=== PATIENT | male | born 1955 | race Caucasian/White ===

== ENCOUNTER 2018-11-25 09:06 | Inpatient (IN) | payer MEDICARE ==
[~2018-11-25] VITALS: Ht 177.8 cm; Wt 118.5 kg
[~2018-11-25 09:06] MED LIST: ASPI81EC PO; Anti-Diarrheal2 MG PO; Aspirin EC81 MG PO; COLE1 PO; DIAZ10 PO; DIAZ5 PO; DIPATR PO; Hydrocodone-Ap1 EA20 PO; IBUHYD PO; LOVA40 PO; Lopressor 25 mg25 MG PO; METH5 PO; OMEP20ER PO; PROM25 PO
[2018-11-25 09:47] LABS: BASOPHILS ABSOLUTE AUTO 0.04 K/mm3 (0.00-0.23); BASOPHILS PERCENT AUTO 1 % (0-2); EOSINOPHILS ABSOLUTE AUTO 0.05 K/mm3 (0.00-0.68); EOSINOPHILS PERCENT AUTO 1 % (0-6); Hematocrit 45.2 % (37.0-53.0); Hemoglobin 14.7 g/dL (13.5-17.5); IMMATURE GRAN ABSOLUTE AUTO 0.04 K/mm3 (0.00-0.10); IMMATURE GRAN PERCENT AUTO 1 % (0-1); LYMPHOCYTES ABSOLUTE AUTO 1.55 K/mm3 (0.84-5.20); LYMPHOCYTES PERCENT AUTO 18 % (21-46); MONOCYTES ABSOLUTE AUTO 0.77 K/mm3 (0.16-1.47); MONOCYTES PERCENT AUTO 9 % (4-13); Mean Corpuscular HGB 31.2 pg (26.0-34.0); Mean Corpuscular HGB Conc 32.5 g/dL (31.5-36.5); Mean Corpuscular Volume 96 fL (80-100); Mean Platelet Volume 9.8 fL (9.1-12.4); NEUTROPHILS ABSOLUTE AUTO 6.17 K/mm3 (1.96-9.15); NEUTROPHILS PERCENT AUTO 72 % (41-73); NRBC ABSOLUTE 0.06 K/mm3 (0.00-0.02); NRBC Auto 0.7 /100 WBC (0.0-0.2); Platelet Count 376 K/mm3 (150-400); RDW Coefficient Variation 14.8 % (11.7-14.2); RDW Standard Deviation 50.7 fL (35.1-46.3); Red Blood Cell Count 4.71 M/mm3 (4.30-5.90); White Blood Cell Count 8.62 K/mm3 (4.00-11.30)
[2018-11-25 10:04] LABS: Alanine Aminotransfer (ALT/SGP 36 U/L (12-78); Albumin, Blood 3.4 g/dL (3.4-5.0); Albumin/Globulin Ratio 0.8 (0.8-1.8); Alk Phos 106 U/L (50-136); Anion Gap 7 mmol/L (6-16); Aspartate Aminotrans (AST/SGOT 25 U/L (12-37); Bilirubin, Total 0.5 mg/dL (0.1-1.0); Blood Urea Nitrogen 11 mg/dL (8-24); Bun/Creatinine Ratio 12.3 (12.0-20.0); CO2, Blood 29 mmol/L (21-32); Calcium, Blood 8.8 mg/dL (8.5-10.1); Chloride, Blood 102 mmol/L (98-108); Globulin, Blood 4.3 g/dL (2.2-4.0); Glomerular Filtration Rate >60 (60-); Glucose, Blood 113 mg/dL (70-99); Potassium, Blood 3.7 mmol/L (3.5-5.5); Sodium, Blood 138 mmol/L (136-145); Total Protein, Blood 7.7 g/dL (6.4-8.2); Troponin I 0.029 ng/mL (0.000-0.040)
[2018-11-25] MEDS ORDERED: FISH OIL + D31 EACH PO (10:10)
[2018-11-25 10:35] LABS: Influenza A Negative (NEGATIVE); Influenza B Negative (NEGATIVE)
[2018-11-25 11:16] LABS: International Normalized Ratio 1.06; Prothrombin Time Results 11.2 Sec (9.7-11.5)
[2018-11-25 12:25] LABS: Calcium, Ionized (POC) 1.07 mmol/L (1.10-1.46); Chloride (POC) 99 mmol/L (98-108); Glucose (ISTAT POC) 114 mg/dL (70-99); Hemoglobin (POC) 14.6 g/dL (13.5-17.5); Potassium (POC) 3.7 mmol/L (3.5-5.5); Sodium (POC) 140 mmol/L (135-148); Total CO2 (POC) 28 mmol/L (21-32)
[2018-11-25] MEDS ORDERED: AMIT25 PO (13:02)
[2018-11-25 13:29] LABS: Magnesium, Blood 2.3 mg/dL (1.6-2.4)
[2018-11-25 13:31] LABS: Thyroid Stimulating Hormone 1.03 uIU/mL (0.360-4.800)
[2018-11-25] MEDS ORDERED: PROM25 PO (14:57)
--- NOTE | 2018-11-25 17:49 | NUR ---
SHIFT SUMMARY 1415 PT ARRIVED FROM ER. AMBULATED FROM STRETCHER TO BED. PT NOTICEABLY DYSPNEIC, ON OXYGEN AT 4L VIA NC. PT RESTING IN BED THROUGHOUT THE AFTERNOON. VSS. ALERT AND ORIENTED X3. C/O 6/10 BACK PAIN, PT MEDICATED IN ER, STATES PAIN IS GETTING BETTER. LUNG SOUNDS CLEAR, DIMINISHED BASES. SINUS TACHYCARDIA RATE 100s ON TELE, RATES TO THE 120s-130s WITH ACTIVITY. TRACE EDEMA NOTED TO LLE. WILL CONTINUE TO MONITOR.
[2018-11-26 04:27] LABS: BASOPHILS ABSOLUTE AUTO 0.05 K/mm3 (0.00-0.23); BASOPHILS PERCENT AUTO 1 % (0-2); EOSINOPHILS ABSOLUTE AUTO 0.15 K/mm3 (0.00-0.68); EOSINOPHILS PERCENT AUTO 2 % (0-6); Hematocrit 42.5 % (37.0-53.0); Hemoglobin 13.3 g/dL (13.5-17.5); IMMATURE GRAN ABSOLUTE AUTO 0.05 K/mm3 (0.00-0.10); IMMATURE GRAN PERCENT AUTO 1 % (0-1); LYMPHOCYTES ABSOLUTE AUTO 2.26 K/mm3 (0.84-5.20); LYMPHOCYTES PERCENT AUTO 23 % (21-46); MONOCYTES ABSOLUTE AUTO 0.82 K/mm3 (0.16-1.47); MONOCYTES PERCENT AUTO 8 % (4-13); Mean Corpuscular HGB 30.7 pg (26.0-34.0); Mean Corpuscular HGB Conc 31.3 g/dL (31.5-36.5); Mean Corpuscular Volume 98 fL (80-100); NEUTROPHILS ABSOLUTE AUTO 6.48 K/mm3 (1.96-9.15); NEUTROPHILS PERCENT AUTO 66 % (41-73); NRBC ABSOLUTE 0.05 K/mm3 (0.00-0.02); NRBC Auto 0.5 /100 WBC (0.0-0.2); Platelet Count 365 K/mm3 (150-400); RDW Coefficient Variation 14.8 % (11.7-14.2); RDW Standard Deviation 51.8 fL (35.1-46.3); Red Blood Cell Count 4.33 M/mm3 (4.30-5.90); White Blood Cell Count 9.81 K/mm3 (4.00-11.30)
[2018-11-26 04:49] LABS: Alanine Aminotransfer (ALT/SGP 33 U/L (12-78); Albumin, Blood 3.1 g/dL (3.4-5.0); Albumin/Globulin Ratio 0.8 (0.8-1.8); Alk Phos 97 U/L (50-136); Anion Gap 7 mmol/L (6-16); Aspartate Aminotrans (AST/SGOT 26 U/L (12-37); Bilirubin, Total 0.5 mg/dL (0.1-1.0); Blood Urea Nitrogen 11 mg/dL (8-24); Bun/Creatinine Ratio 14.8 (12.0-20.0); CO2, Blood 29 mmol/L (21-32); Calcium, Blood 8.4 mg/dL (8.5-10.1); Chloride, Blood 103 mmol/L (98-108); Creatinine, Blood 0.74 mg/dL (0.60-1.20); Globulin, Blood 4.1 g/dL (2.2-4.0); Glomerular Filtration Rate >60 (60-); Glucose, Blood 103 mg/dL (70-99); Potassium, Blood 3.6 mmol/L (3.5-5.5); Sodium, Blood 139 mmol/L (136-145); Total Protein, Blood 7.2 g/dL (6.4-8.2)
--- NOTE | 2018-11-26 06:09 | NUR ---
SHIFT SUMMARY- PT HAS REMAINED AOX4 THROUGHOUT SHIFT AND ABLE TO ANSWER QUESTIONS APPROPRIATELY, BUT DOES APPEAR FORGETFUL AT TIMES- REQUIRES REPETITION OF EDUCATION. PT AMBULATES WITH STANDBY ASSIST TO BEDSIDE COMMODE AND HAS FREQUENT BM'S, WHICH HE STATES IS HIS BASELINE. PT CONTINUES TO BE TACHYPNEIC, BUT RESPIRATIONS ARE EVEN AND UNLABORED AT REST- CONTINUES TO HAVE DYSPNEA ON EXERTION. HEPARIN DRIP REMAINS INFUSING TO LAC AND IS TITRATED PER PHARMACY. ORAL CONTRAST CONSUMED THROUGHOUT THE NIGHT PER IMAGING ORDERS- TOLERATED WELL. PT SWALLOWED PILLS WHOLE IN APPLESAUCE WITHOUT DIFFICULTY. MEDICATED MULTIPLE TIMES THROUGHOUT THE NIGHT FOR PAIN TO LOWER BACK AND CHEST/LUNGS THAT INCREASES WITH EXERTION OR DYSPNEA- PT REPORTS DECREASE WITH ORDERED MEDICATIONS. O2 SATS HAVE REMAINED >90% ON 4L O2 VIA NASAL CANNULA. NO OTHER CHANGES FROM INITIAL ASSESSMENT. WILL CONTINUE TO MONITOR AND REPORT TO ONCOMING SHIFT RN. BED IN LOW POSITION, CALL LIGHT IN REACH.
--- NOTE | 2018-11-26 18:41 | NUR ---
SHIFT SUMMARY PT RESTING IN BED THROUGHOUT THE DAY. UP TO BEDSIDE COMMODE WITH STANDBY ASSIST. PT DYSPNEIC ON EXERTION. C/O 5/10 BACK PAIN, MEDICATED WITH PRN PAIN MEDS REQUESTED. VSS. ALERT AND ORIENTED X3 WITH SOME MOMENTS OF CONFUSION. LUNG SOUNDS EXPIRATORY WHEEZES THROUGHOUT. FAMILY AT BEDSIDE OFF AND ON THROUGHOUT THE DAY. HEPARIN GTT CONTINUED PER PHARMACY ORDERS. WILL CONTINUE TO MONITOR.
--- NOTE | 2018-11-27 06:30 | NUR ---
SHIFT SUMMARY- PT HAS REMAINED AOX4 THROUGHOUT SHIFT. VSS. PLEASANT AND COOPERATIVE WITH CARE. PT CONTINUES TO AMBULATE WITH STANDBY ASSIST TO BSC WITHOUT DIFFICULTY. O2 SATS HAVE REMAINED >90% ON 4L VIA NASAL CANNULA. PT REPORTS FEELING CONGESTED THIS AM IN SINUSES AND THROAT- REPORTS IMPROVEMENT WITH HUMIDIFIED OXYGEN. PT MEDICATED TWO TIMES FOR PAIN THROUGHOUT THE NIGHT THAT IMPROVES WITH ORDERED MEDICATIONS. HEPARIN DRIP CONTINUES TO INFUSE AND IS MANAGED PER PHARMACY. PT REPORTS IMPROVEMENT WITH SWALLOWING SINCE SPEECH THERAPY EVALUATION YESTERDAY. NO OTHER CHANGES NOTED FROM INITIAL ASSESSMENT. WILL CONTINUE TO MONITOR AND REPORT TO ONCOMING SHIFT RN. BED IN LOW POSITION, CALL LIGHT IN REACH.
[2018-11-27 08:11] LABS: COMPLEMENT C3, SERUM 196 mg/dL (82-167); COMPLEMENT C4, SERUM 36 mg/dL (14-44)
--- NOTE | 2018-11-27 17:00 | NUR ---
UPDATE PT ALERT AND ORIENTED. VS STABLE. HEPARIN GTT INFUSING PER ORDERS. FILLING HAND CALLED AND NOTIFIED THIS RN OF DVT IN RIGHT LEG. DR. LAI CALLED AND NOTIFIED. AWAITING DR. LAI TO DISCUSS THIS WITH PT. NO ACUTE CHANGES THIS SHIFT. O2 SATS >90% ON 4L NC. REPORT CALLED TO MEDICAL FLOOR RN. PT TAKEN UP BY WHEELCHAIR WITH HIS BELONGINGS.
--- NOTE | 2018-11-27 18:42 | NUR ---
SHIFT SUMMARY PATIENT TRANSFERED FROM PCU. HE IS ABLE TO MAKE HIS NEEDS KNOWN. CURRENTLY ON 4L O2, 6L WITH EXERTION.
[2018-11-27 20:06] LABS: ANTI-DSDNA ANTIBODIES 1 IU/mL (0-9); RNP ANTIBODIES <0.2 AI (0.0-0.9); SJOGREN'S ANTI-SS-A <0.2 AI (0.0-0.9); SJOGREN'S ANTI-SS-B <0.2 AI (0.0-0.9); SMITH ANTIBODIES <0.2 AI (0.0-0.9)
[2018-11-28 04:47] LABS: BASOPHILS ABSOLUTE AUTO 0.05 K/mm3 (0.00-0.23); BASOPHILS PERCENT AUTO 1 % (0-2); EOSINOPHILS ABSOLUTE AUTO 0.19 K/mm3 (0.00-0.68); EOSINOPHILS PERCENT AUTO 2 % (0-6); Hematocrit 41.7 % (37.0-53.0); Hemoglobin 13.6 g/dL (13.5-17.5); IMMATURE GRAN ABSOLUTE AUTO 0.02 K/mm3 (0.00-0.10); IMMATURE GRAN PERCENT AUTO 0 % (0-1); LYMPHOCYTES ABSOLUTE AUTO 2.87 K/mm3 (0.84-5.20); LYMPHOCYTES PERCENT AUTO 32 % (21-46); MONOCYTES ABSOLUTE AUTO 0.73 K/mm3 (0.16-1.47); MONOCYTES PERCENT AUTO 8 % (4-13); Mean Corpuscular HGB 31.8 pg (26.0-34.0); Mean Corpuscular HGB Conc 32.6 g/dL (31.5-36.5); Mean Corpuscular Volume 97 fL (80-100); Mean Platelet Volume 9.6 fL (9.1-12.4); NEUTROPHILS ABSOLUTE AUTO 4.99 K/mm3 (1.96-9.15); NEUTROPHILS PERCENT AUTO 57 % (41-73); Platelet Count 397 K/mm3 (150-400); RDW Coefficient Variation 15.5 % (11.7-14.2); Red Blood Cell Count 4.28 M/mm3 (4.30-5.90); White Blood Cell Count 8.85 K/mm3 (4.00-11.30)
[2018-11-28 05:08] LABS: Alanine Aminotransfer (ALT/SGP 32 U/L (12-78); Albumin, Blood 3.3 g/dL (3.4-5.0); Albumin/Globulin Ratio 0.8 (0.8-1.8); Alk Phos 95 U/L (50-136); Anion Gap 8 mmol/L (6-16); Aspartate Aminotrans (AST/SGOT 25 U/L (12-37); Bilirubin, Total 0.6 mg/dL (0.1-1.0); Blood Urea Nitrogen 7 mg/dL (8-24); Bun/Creatinine Ratio 8.8 (12.0-20.0); CO2, Blood 29 mmol/L (21-32); Calcium, Blood 8.8 mg/dL (8.5-10.1); Chloride, Blood 101 mmol/L (98-108); Globulin, Blood 4.2 g/dL (2.2-4.0); Glomerular Filtration Rate >60 (60-); Glucose, Blood 122 mg/dL (70-99); Potassium, Blood 3.6 mmol/L (3.5-5.5); Sodium, Blood 138 mmol/L (136-145); Total Protein, Blood 7.5 g/dL (6.4-8.2)
--- NOTE | 2018-11-28 07:37 | NUR ---
NOC SHIFT SUMMARY PT IS PLEASANT AND COOPERATIVE WITH CARE THIS NIGHT. LABS DRAWN THIS AM WITH NO CHANGE ORDERED TO HEPARIN DRIP. WAS HAVING SIGNIFICANT PAIN EARLY IN THE NIGHT. TREATED SUCCESSFULLY WITH MEDS. VSS. APPEARS IN NO ACUTE DISTRESS. REPORT TO ONCOMING RN.
[2018-11-28 08:14] LABS: PROTEIN C-FUNCTIONAL 117 % (73-180); PROTEIN S-FUNCTIONAL 78 % (63-140)
[2018-11-28] MEDS ORDERED: ENOX120I SC (12:35)
[2018-11-28] MEDS ORDERED: PANT40 PO (12:36)
--- NOTE | 2018-11-28 14:49 | NUR ---
DISCHARGE NOTE- PT DAUGHTER PRESENT FOR DISCHARGE TEACHING, PT RECIEVED VERBAL AND WRITTEN DISCHARGE INSTRUCTIONS AND ACKNOWLEDGED UNDERSTANDING OF THEM, TELE AND BOTH IV'S DC'D AT THE TIME OF DISCHARGE. PT WAS PROVIDED WITH CONTACT INFO SHOULD QUESTIONS ARRISE ABOUT THE DISCHARGE TODAY. NO FURTHER QUESTIONS AT THE TIME OF DISCHARGE.
== END 2018-11-28 13:03 | disposition home or self-care (01) | DRG 175 ==
LOC: ER 09:06 → PCU 11:44 → MEDS 11-27 17:06 → ENPENDDIS 11-28 11:00 → MEDS 11-28 13:03
PROVIDERS: Emergency Medicine; ADMIT Internal Medicine
DX: I26.09 Other pulmonary embolism with acute cor pulmonale (principal); J96.21 Acute and chronic respiratory failure with hypoxia; Z87.891 Personal history of nicotine dependence; G47.33 Obstructive sleep apnea (adult) (pediatric); K21.9 Gastro-esophageal reflux disease without esophagitis; I11.0 Hypertensive heart disease with heart failure; I50.9 Heart failure, unspecified; R13.10 Dysphagia, unspecified; Z86.718 Personal history of other venous thrombosis and embolism; J44.9 Chronic obstructive pulmonary disease, unspecified
CPT/HCPCS: 36415; 71260; 74177; 80047; 80053; 82607; 82746; 83735; 83880; 84443; 84484; 85014; 85025; 85303; 85306; 85610; 85651; 85730; 86160; 86225; 86235; 87804; 92526; 92610; 93005; 93010; 93970; 94762; 97161; 97530; 99285-25; A9270-GY; J1644; J1650; Q9967

== ENCOUNTER → 2020-01-22 | Outpatient (CLI) | payer MEDICARE, OTHER ==
[~2020-01-22] MED LIST changes: +AMIT25 PO; +ENOX120I SC; +FISH OIL + D31 EACH PO; +PANT40 PO
[2020-01-22 10:51] LABS: BASOPHILS ABSOLUTE AUTO 0.03 K/mm3 (0.00-0.23); BASOPHILS PERCENT AUTO 0 % (0-2); EOSINOPHILS ABSOLUTE AUTO 0.01 K/mm3 (0.00-0.68); EOSINOPHILS PERCENT AUTO 0 % (0-6); Hematocrit 52.9 % (37.0-53.0); Hemoglobin 17.3 g/dL (13.5-17.5); IMMATURE GRAN ABSOLUTE AUTO 0.02 K/mm3 (0.00-0.10); IMMATURE GRAN PERCENT AUTO 0 % (0-1); LYMPHOCYTES ABSOLUTE AUTO 2.01 K/mm3 (0.84-5.20); LYMPHOCYTES PERCENT AUTO 23 % (21-46); MONOCYTES ABSOLUTE AUTO 0.57 K/mm3 (0.16-1.47); MONOCYTES PERCENT AUTO 7 % (4-13); Mean Corpuscular HGB 30.5 pg (26.0-34.0); Mean Corpuscular HGB Conc 32.7 g/dL (31.5-36.5); Mean Corpuscular Volume 93 fL (80-100); Mean Platelet Volume 10.1 fL (9.1-12.4); NEUTROPHILS PERCENT AUTO 70 % (41-73); Platelet Count 376 K/mm3 (150-400); RDW Coefficient Variation 13.2 % (11.7-14.2); RDW Standard Deviation 44.6 fL (35.1-46.3); Red Blood Cell Count 5.68 M/mm3 (4.30-5.90); White Blood Cell Count 8.64 K/mm3 (4.00-11.30)
[2020-01-22 11:16] LABS: Alanine Aminotransfer (ALT/SGP 43 U/L (12-78); Albumin, Blood 4.4 g/dL (3.4-5.0); Alk Phos 100 U/L (40-126); Anion Gap 9 mmol/L (6-16); Aspartate Aminotrans (AST/SGOT 25 U/L (12-37); Bilirubin, Total 0.2 mg/dL (0.1-1.0); Blood Urea Nitrogen 19 mg/dL (8-24); Bun/Creatinine Ratio 19.6 (12.0-20.0); CO2, Blood 30 mmol/L (21-32); Calcium, Blood 8.9 mg/dL (8.5-10.1); Chloride, Blood 103 mmol/L (98-108); Creatinine, Blood 0.97 mg/dL (0.60-1.20); Globulin, Blood 4.5 g/dL (2.2-4.0); Glomerular Filtration Rate >60 (60-); Glucose, Blood 113 mg/dL (70-99); Potassium, Blood 4.5 mmol/L (3.5-5.5); Sodium, Blood 142 mmol/L (136-145); Total Protein, Blood 8.9 g/dL (6.4-8.2)
[2020-01-23 11:05] LABS: Antinuclear Antibody Screen Negative (Negative)
== END | disposition home or self-care (01) ==
LOC: LAB SHORT 10:46 → LAB EV 10:46
PROVIDERS: General Practice
DX: L03.211 Cellulitis of face (principal)
CPT/HCPCS: 80053; 85025; 85651; 86038

== ENCOUNTER 2021-04-26 16:02 | Emergency (ER) | payer MEDICARE ==
[~2021-04-26] VITALS: Ht 180.3 cm; Wt 122.0 kg
[2021-04-26 19:49] LABS: BASOPHILS ABSOLUTE AUTO 0.07 K/mm3 (0.00-0.23); BASOPHILS PERCENT AUTO 1 % (0-2); EOSINOPHILS ABSOLUTE AUTO 0.21 K/mm3 (0.00-0.68); EOSINOPHILS PERCENT AUTO 2 % (0-6); Hematocrit 51.3 % (37.0-53.0); Hemoglobin 16.7 g/dL (13.5-17.5); IMMATURE GRAN ABSOLUTE AUTO 0.02 K/mm3 (0.00-0.10); IMMATURE GRAN PERCENT AUTO 0 % (0-1); LYMPHOCYTES ABSOLUTE AUTO 2.53 K/mm3 (0.84-5.20); LYMPHOCYTES PERCENT AUTO 26 % (21-46); MONOCYTES ABSOLUTE AUTO 0.77 K/mm3 (0.16-1.47); MONOCYTES PERCENT AUTO 8 % (4-13); Mean Corpuscular HGB 30.3 pg (26.0-34.0); Mean Corpuscular HGB Conc 32.6 g/dL (31.5-36.5); Mean Corpuscular Volume 93 fL (80-100); NEUTROPHILS ABSOLUTE AUTO 6.29 K/mm3 (1.96-9.15); NEUTROPHILS PERCENT AUTO 64 % (41-73); Platelet Count 306 K/mm3 (150-400); RDW Coefficient Variation 13.7 % (11.7-14.2); RDW Standard Deviation 47.1 fL (35.1-46.3); Red Blood Cell Count 5.52 M/mm3 (4.30-5.90); White Blood Cell Count 9.89 K/mm3 (4.00-11.30)
[2021-04-26 20:20] LABS: Alanine Aminotransfer (ALT/SGP 73 U/L (12-78); Albumin, Blood 3.9 g/dL (3.4-5.0); Alk Phos 116 U/L (50-136); Anion Gap 7 mmol/L (6-16); Aspartate Aminotrans (AST/SGOT 58 U/L (12-37); Bilirubin, Total 0.6 mg/dL (0.1-1.0); Blood Urea Nitrogen 7 mg/dL (8-24); Bun/Creatinine Ratio 8.1 (12.0-20.0); CO2, Blood 28 mmol/L (21-32); Calcium, Blood 8.9 mg/dL (8.5-10.1); Chloride, Blood 102 mmol/L (98-108); Creatinine, Blood 0.87 mg/dL (0.60-1.20); Globulin, Blood 3.8 g/dL (2.2-4.0); Glomerular Filtration Rate >60 (60-); Glucose, Blood 91 mg/dL (70-99); Potassium, Blood 3.9 mmol/L (3.5-5.5); Sodium, Blood 137 mmol/L (136-145); Total Protein, Blood 7.7 g/dL (6.4-8.2)
[2021-04-26 20:42] LABS: SARS-Cov-2 (COVID-19) PCR, MMC NEGATIVE (NEGATIVE)
[2021-04-26] MEDS ORDERED: ENOX120I SC (23:20)
== END 2021-04-26 23:45 | disposition home or self-care (01) ==
LOC: ER 16:02
PROVIDERS: Physician Assistant
DX: I26.99 Other pulmonary embolism without acute cor pulmonale (principal); R09.02 Hypoxemia; K21.9 Gastro-esophageal reflux disease without esophagitis; I11.0 Hypertensive heart disease with heart failure; I50.9 Heart failure, unspecified; G47.33 Obstructive sleep apnea (adult) (pediatric); R05 Cough; J18.9 Pneumonia, unspecified organism; J44.9 Chronic obstructive pulmonary disease, unspecified; G89.29 Other chronic pain; Z20.822 Contact with and (suspected) exposure to COVID-19; Z99.81 Dependence on supplemental oxygen; Z87.891 Personal history of nicotine dependence; Z88.0 Allergy status to penicillin; Z79.01 Long term (current) use of anticoagulants; Z79.899 Other long term (current) drug therapy; Z86.718 Personal history of other venous thrombosis and embolism
CPT/HCPCS: 71046; 71260; 80053; 83880; 84484; 85025; 85379; 93005; 93010; 99283-25; J1650; Q9967; U0003; U0004

== ENCOUNTER 2021-06-12 21:20 | Inpatient (IN) | payer MEDICARE ==
[~2021-06-12] VITALS: Ht 180.3 cm; Wt 124.7 kg
[~2021-06-12 21:20] MED LIST changes: -DIAZ5 PO; -Lopressor 25 mg25 MG PO
[2021-06-12 21:52] LABS: BASOPHILS ABSOLUTE AUTO 0.01 K/mm3 (0.00-0.23); BASOPHILS PERCENT AUTO 0 % (0-2); EOSINOPHILS PERCENT AUTO 0 % (0-6); Hematocrit 51.8 % (37.0-53.0); Hemoglobin 15.8 g/dL (13.5-17.5); IMMATURE GRAN ABSOLUTE AUTO 0.03 K/mm3 (0.00-0.10); IMMATURE GRAN PERCENT AUTO 1 % (0-1); LYMPHOCYTES ABSOLUTE AUTO 0.69 K/mm3 (0.84-5.20); LYMPHOCYTES PERCENT AUTO 11 % (21-46); MONOCYTES ABSOLUTE AUTO 0.12 K/mm3 (0.16-1.47); MONOCYTES PERCENT AUTO 2 % (4-13); Mean Corpuscular HGB 30.6 pg (26.0-34.0); Mean Corpuscular HGB Conc 30.5 g/dL (31.5-36.5); Mean Corpuscular Volume 100 fL (80-100); Mean Platelet Volume 9.8 fL (9.1-12.4); NEUTROPHILS ABSOLUTE AUTO 5.56 K/mm3 (1.96-9.15); NEUTROPHILS PERCENT AUTO 87 % (41-73); NRBC ABSOLUTE 0.06 K/mm3 (0.00-0.02); NRBC Auto 0.9 /100 WBC (0.0-0.2); Platelet Count 326 K/mm3 (150-400); RDW Coefficient Variation 13.2 % (11.7-14.2); RDW Standard Deviation 48.9 fL (35.1-46.3); Red Blood Cell Count 5.17 M/mm3 (4.30-5.90); White Blood Cell Count 6.41 K/mm3 (4.00-11.30)
[2021-06-12 22:07] LABS: Alanine Aminotransfer (ALT/SGP 50 U/L (12-78); Albumin/Globulin Ratio 0.7 (0.8-1.8); Alk Phos 102 U/L (50-136); Anion Gap 11 mmol/L (6-16); Aspartate Aminotrans (AST/SGOT 34 U/L (12-37); Bilirubin, Total 0.4 mg/dL (0.1-1.0); Blood Urea Nitrogen 11 mg/dL (8-24); Bun/Creatinine Ratio 8.1 (12.0-20.0); CO2, Blood 27 mmol/L (21-32); Calcium, Blood 8.2 mg/dL (8.5-10.1); Chloride, Blood 101 mmol/L (98-108); Creatinine, Blood 1.36 mg/dL (0.60-1.20); Globulin, Blood 4.3 g/dL (2.2-4.0); Glomerular Filtration Rate 53 (60-); Glucose, Blood 188 mg/dL (70-99); Magnesium, Blood 1.6 mg/dL (1.6-2.4); Potassium, Blood 3.9 mmol/L (3.5-5.5); Sodium, Blood 139 mmol/L (136-145); Total Protein, Blood 7.3 g/dL (6.4-8.2); Troponin I <0.015 ng/mL (0.000-0.040)
[2021-06-12 22:12] LABS: PCO2 Arterial 63.7 mmHg (35-45); PO2 Arterial 48 mmHg (80-100); pH Blood Arterial 7.23 (7.35-7.45)
--- NOTE | 2021-06-13 01:40 | NUR ---
PATIENT UPDATED: ADMIT FROM ER APPROX 0015. DR. PATEL CALLED TO ROOM FOR CENTRAL LINE PLACEMENT. (PATIENT RUNNING LEVO AND VERSED THROUGH PERIPHERAL IVs AND IS AWAKE AND SHAKING - PER ER NURSE: LEVOPHED AND VERSED WAS STARTED BECAUSE PROPOFOL DECREASED NBP DOWN TO SBP OF 50S) CENTRAL LINE QUAD LUMEN RIJ PLACED. PROPOFOL, LEVO, VERSED, AND FENTANYL STARTED AND TITRATED WITH DR. PATEL IN ROOM. PATIENT THEN SENT TO CT/PE. UPON ARRIVAL BACK TO UNIT: FINAL TITRATIONS OF GTTS ARE FENTANYL AT 50MCG/HR. VERSED AT 5MG/HR. LEVO AT 15MCG/MIN. PROPOFOL AT 45MCG/KG/MIN.
[2021-06-13 03:16] LABS: BASOPHILS ABSOLUTE AUTO 0.02 K/mm3 (0.00-0.23); BASOPHILS PERCENT AUTO 0 % (0-2); EOSINOPHILS ABSOLUTE AUTO 0.01 K/mm3 (0.00-0.68); EOSINOPHILS PERCENT AUTO 0 % (0-6); Hematocrit 44.3 % (37.0-53.0); Hemoglobin 14.2 g/dL (13.5-17.5); IMMATURE GRAN ABSOLUTE AUTO 0.04 K/mm3 (0.00-0.10); IMMATURE GRAN PERCENT AUTO 0 % (0-1); LYMPHOCYTES ABSOLUTE AUTO 0.83 K/mm3 (0.84-5.20); LYMPHOCYTES PERCENT AUTO 7 % (21-46); MONOCYTES ABSOLUTE AUTO 0.85 K/mm3 (0.16-1.47); MONOCYTES PERCENT AUTO 7 % (4-13); Mean Corpuscular HGB 30.9 pg (26.0-34.0); Mean Corpuscular HGB Conc 32.1 g/dL (31.5-36.5); Mean Corpuscular Volume 96 fL (80-100); Mean Platelet Volume 9.8 fL (9.1-12.4); NEUTROPHILS ABSOLUTE AUTO 9.88 K/mm3 (1.96-9.15); NEUTROPHILS PERCENT AUTO 85 % (41-73); NRBC ABSOLUTE 0.05 K/mm3 (0.00-0.02); NRBC Auto 0.4 /100 WBC (0.0-0.2); Platelet Count 284 K/mm3 (150-400); RDW Coefficient Variation 13.6 % (11.7-14.2); RDW Standard Deviation 48.3 fL (35.1-46.3); White Blood Cell Count 11.63 K/mm3 (4.00-11.30)
[2021-06-13 03:32] LABS: International Normalized Ratio 1.05
[2021-06-13 03:35] LABS: Albumin, Blood 2.6 g/dL (3.4-5.0); Albumin/Globulin Ratio 0.7 (0.8-1.8); Bilirubin, Total 0.4 mg/dL (0.1-1.0); Bun/Creatinine Ratio 9.1 (12.0-20.0); Calcium, Blood 7.6 mg/dL (8.5-10.1); Creatinine, Blood 1.43 mg/dL (0.60-1.20); Globulin, Blood 3.6 g/dL (2.2-4.0); Potassium, Blood 3.7 mmol/L (3.5-5.5); Total Protein, Blood 6.2 g/dL (6.4-8.2)
[2021-06-13 04:36] LABS: SARS-Cov-2 (COVID-19) PCR, MMC NEGATIVE (NEGATIVE)
--- NOTE | 2021-06-13 05:24 | NUR ---
PATIENT UPDATE NOTE: HEPARIN GTT STARTED AT 15UNITS/KG/HR PER ORDER. KVO X2 STARTED FOR ANTIBIOTICS. LABS DRAWN AND RETURN RESULTS. LACTIC ACID CAME BACK CRITICAL BUT LOWER THAN ER RESULT. NO MAJOR ISSUES WITH KIDNEY OR LIVER FUCTION RESULTS. 500ML BOLUS COMPLETED (PER ORDER FROM DR. PATEL - NOT TO FINISH THE 3.5L BOLUS BUT TO CHANGE TO 1.5L)
--- NOTE | 2021-06-13 05:34 | NUR ---
DR. GUERRERO NOTIFIED OF... ACOSTA CONTINUES TO HAVE NO URINE OUTPUT. BLADDER SCAN PRIOR TO INSERTION > 800MLS. ACOSTA INSERTED WITH NO URINE RETURN. 18F. 2 HOUR S/P ACOSTA INERSTION, BLADDER SCAN READS 200MLS, BUT NO URINE IN COLLECTION DEVICE, ON SHEETS, OR ON PATIENT. MULTIPLE RNs ATTEMPTED TO PLACE THIS ACOSTA INCLUDING ER AND ICU RNs AND MULTIPLE SIZES ATTEMPTED. PER DR. GUERRERO - CONTINUE TO MONITOR.
--- NOTE | 2021-06-13 07:14 | NUR ---
UNSPIKED VERSED BAG PASSED OFF TO DAYSHIFT ANGEL HERNANDEZ RN
--- NOTE | 2021-06-13 07:41 | NUR ---
ASSUMED CARE: PT INTUBATED AND SEDATED. SETTINGS AC 16/500/12/100%, SATTINGS 89%. PROPOFOL GTT AT 45MCG, LEVOPHED TITRATED DOWN TO 9MCG, VERSED GTT AT 5MG/HR, HEPARIN GTT VERIFIED WITH ORDERS. OG TO LIS WITH GREEN OUTPUT NOTED. ACOSTA CATH IN PLACE BUT NO OUTPUT NOTED AT THIS TIME. CL TO RIGHT NECK WITH MEDS INFUSING. NO ACUTE NEEDS AT THIS TIME.
--- NOTE | 2021-06-13 08:34 | NUR ---
SEDATION VACATION PERFORMED. VERSED AND PROPOFOL PUT TO SB. PT SUCTIONED WITH BLOODY SECRETIONS NOTED. PT'S PUPILS REACTIVE BUT SLUGGISH. OTHERWISE PT NOT RESPONSIVE TO NOXIOUS STIMULI. REPOSITIONED AND ORAL CARE WITH NO REACTION NOTED. MEDS RESTARTED. LENDING CONSULTANT AWARE. WILL RELAY TO AUTOMOTIVE SOFTWARE ENGINEER
[2021-06-13] MEDS ORDERED: FLOVENT HFA12 GM INH (10:27)
[2021-06-13] MEDS ORDERED: OXYB5 PO (10:27)
[2021-06-13] MEDS ORDERED: Lopressor 25 mg25 MG PO (10:28)
[2021-06-13] MEDS ORDERED: ELIQUIS5 M3 PO (10:28)
[2021-06-13] MEDS ORDERED: DIAZ5 PO (10:28)
--- NOTE | 2021-06-13 10:45 | NUR ---
ADMIT: 06/12/21 DISCHARGE: TBD DX: ACUTE ON CHRONIC RESP. FAILURE CC: Marcia SALAZAR RESIDENCE: HOME - [address] [place] [address] [place]. [id number] NEXT OF KIN/CONTACTS: PALMER BOND, DAUGHTER [phone] PREET BOND, SON IN-LAW PRIOR TO ADMIT - DME: OXYGEN EQUIPMENT CCM: NONE HHC/HOSPICE: NONE CODE STATUS - FULL CODE
--- NOTE | 2021-06-13 18:31 | NUR ---
SHIFT SUMMARY: PT REMAINS INTUBATED WITH SETTINGS AC 16/500/12/100%. DR INSTRUCTED STAFF TO KEEP PT ON LEFT SIDE DUE TO WORSENED PNEUMONIA ON RIGHT SIDE. STAFF HAS BEEN ALTERNATING BETWEEN 2 PILLOWS AND 1 PILLOW UNDER SIDE TO KEEP PT ELEVATED AND TO PROVIDE PRESSURE POINT CHANGES. LEVOPHED OFF, PROPOFOL AT 45MCG, FENTANYL GTT AND VERSED GTT RUNNING. NS AT 100/HR. DR YANG FEELS PT IS "DRY" DUE TO INFECTION AND INSTRUCTED FOR FURTHER FLUIDS WHEN HE WAS NOTIFIED THAT PT HAD NOT VOIDED ALL SHIFT. BLADDER SCAN SHOWED 50CC IN BLADDER. PT'S DAUGHTER WAS AT BEDSIDE DURING VISITING HOURS. NO ACUTE NEEDS AT THIS TIME.
--- NOTE | 2021-06-13 19:30 | NUR ---
ASSUMPTION OF CARE PT REMAINS INTUBATED WITH VENT SETTINGS 16/400/12/100% WITH SPO2 >92%. PT SEDATED WITH PROPOFOL 45MCG/KG/MIN, VERSED 5MG/HR, RECEIVING FENTANYL 50MCG/HR AND NS 100MLS/HR. LEVOPHED REMAINS ON STANDBY. SMALL AMOUNT OF BLOODY SECRETIONS IN ETT. OGT CONNECTED TO LOW INT SUCTION WITH GREEN DRAINAGE. SEE NOTES REGARDING ACOSTA. SEE SHIFT ASSESSMENT.
--- NOTE | 2021-06-13 20:39 | NUR ---
ACOSTA ACOSTA CATH WITH NO DRAINAGE. BLADDER SCAN DONE THREE TIMES WITH RESULTS 850-1000 ML. FLUSHED CATH WITH 50 ML STERIL WATER, FLUSED WITHOUT DIFFICULTY. NO RETURN OF FLUID. DECREASED BALLOON OF ACOSTA CATH, SCANT AMT BLOODY FLUID NOTED IN TUBING. UNABLE TO ADVANCE ACOSTA. REMOVED ACOSTA CATH AND TRIED TO PLACE 16 FR COUDE CATH. CAN FEEL CATH GOING OFF TO RIGHT SIDE OF BLADDER. REMOVED ACOSTA. DR JAMISON AT BEDSIDE, INSTRUCTED TO NOTIFY DR YANG. CALL TO DR YANG. OBTAINED ORDER FOR ABD/PELVIC CT WITHOUT CONTRAST AND TO CALL DR BRUNER.
--- NOTE | 2021-06-13 20:48 | NUR ---
DR BRUNER CONTACTED DR BRUNER REGARDING BLADDER OBST. DOCTOR WITH SEE PT IN AM. AGREED TO CT ABD/PELVIC. RT AT BEDSIDE FOR TRANSPORT TO CT.
--- NOTE | 2021-06-13 21:27 | NUR ---
CT PT TAKEN TO CT WITH VENT AND RT. CT ABD/PELVIC DONE. CALLED DR YANG WITH RESULTS. ORDER RECEIVED TO DECREASE IV FLUID, HOLD LOVENOX FOR TONIGHT FOR POSSIBLE SUPRAPUBIC CATH PLACEMENT IN AM, LEAVE ACOSTA CATH OUT AND TRY TO DECREASED VERSED DURING THE NIGHT.
[2021-06-14 04:36] LABS: BASOPHILS ABSOLUTE AUTO 0.01 K/mm3 (0.00-0.23); BASOPHILS PERCENT AUTO 0 % (0-2); EOSINOPHILS PERCENT AUTO 0 % (0-6); Hematocrit 37.4 % (37.0-53.0); Hemoglobin 12.3 g/dL (13.5-17.5); IMMATURE GRAN ABSOLUTE AUTO 0.06 K/mm3 (0.00-0.10); IMMATURE GRAN PERCENT AUTO 1 % (0-1); LYMPHOCYTES ABSOLUTE AUTO 1.05 K/mm3 (0.84-5.20); LYMPHOCYTES PERCENT AUTO 8 % (21-46); MONOCYTES ABSOLUTE AUTO 0.99 K/mm3 (0.16-1.47); MONOCYTES PERCENT AUTO 8 % (4-13); Mean Corpuscular HGB Conc 32.9 g/dL (31.5-36.5); Mean Corpuscular Volume 94 fL (80-100); Mean Platelet Volume 10.4 fL (9.1-12.4); NEUTROPHILS ABSOLUTE AUTO 10.77 K/mm3 (1.96-9.15); NEUTROPHILS PERCENT AUTO 84 % (41-73); NRBC ABSOLUTE 0.02 K/mm3 (0.00-0.02); NRBC Auto 0.2 /100 WBC (0.0-0.2); Platelet Count 242 K/mm3 (150-400); RDW Coefficient Variation 13.9 % (11.7-14.2); RDW Standard Deviation 48.3 fL (35.1-46.3); Red Blood Cell Count 3.97 M/mm3 (4.30-5.90); White Blood Cell Count 12.88 K/mm3 (4.00-11.30)
[2021-06-14 04:54] LABS: Albumin, Blood 2.8 g/dL (3.4-5.0); Anion Gap 4 mmol/L (6-16); Blood Urea Nitrogen 21 mg/dL (8-24); CO2, Blood 28 mmol/L (21-32); Calcium, Blood 7.7 mg/dL (8.5-10.1); Chloride, Blood 103 mmol/L (98-108); Creatinine, Blood 1.05 mg/dL (0.60-1.20); Glomerular Filtration Rate >60 (60-); Glucose, Blood 141 mg/dL (70-99); Phosphorus, Blood 2.1 mg/dL (2.5-4.9); Potassium, Blood 4.5 mmol/L (3.5-5.5); Sodium, Blood 135 mmol/L (136-145)
--- NOTE | 2021-06-14 05:46 | NUR ---
SHIFT SUMMARY PT REMAINS INTUBATED WITH VENT SETTINGS 16/400/12/65% WITH SPO2 >93%. PT RECEIVING PROPOFOL 45MCG/KG/MIN, FENTANYL 50MCG/HR, AND NS 40ML/HR. PT REMAINED ON L SIDE PER DR'S REQUEST. MINIMAL WHITE/RED SECRETIONS FROM ETT. OGT REMAINS CONNECTED TO LOW INT SUCTION WITH BROWN DRAINAGE. BOWEL TONES REMAIN HYPOACTIVE. CONDOM CATH IN PLACE. PT HAD 175ML URINE OUTPUT THIS SHIFT. PLAN FOR SUPRAPUBIC CATH LATER TODAY. WILL REPORT TO ONCOMING RN.
--- NOTE | 2021-06-14 07:22 | NUR ---
ASSUMED CARE: PT INTUBATED AND SEDATED. AC 16/500/12/65%. PROPOFOL AT 45MCG/KG AND FENTANYL AT 50MCG/HR AT THIS TIME. OG DRAINING BROWN OUTPUT. CONDOM CATH WITH SOME YELLOW URINE DRAINING. PLAN IS FOR DR BRUNER TO CONSULT REGARDING PERMACATH PLACEMENT. NIGHT RN CONTACTED PT'S DAUGHTER REGARDING THIS. NO ACUTE NEEDS AT THIS TIME.
[2021-06-14 08:27] LABS: Base Excess Venous 3.6 mmol/L; Bicarbonate Venous 26.8 mmol/L (24.0-30.0); PCO2 Venous 47.3 mmHg (38-42); pH Blood Venous 7.39 (7.34-7.37)
[2021-06-14 09:13] LABS: Vancomycin, Trough 35.7 ug/mL (5.0-10.0)
--- NOTE | 2021-06-14 10:11 | NUR ---
PT COLLECTED BY FISH TECHNOLOGIST STAFF FOR PROCEDURE. ESCORTED VIA BED WITH RT ASSISTING
--- NOTE | 2021-06-14 11:43 | NUR ---
PT RETURNED FROM PRINTING SERVICES COORDINATOR WITH SUPRAPUBIC CATH IN PLACE. YELLOW URINE, NO SIGN OF BLEEDING. VSS AT THIS TIME. PT'S DAUGHTER WAS CALLED AND GIVEN AN UPDATE.
--- NOTE | 2021-06-14 13:19 | NUR ---
Contacted patient/s daughter Layla this afternoon to provide updates and answer questions. Disposition unknown at this time. Discussed patient's living conditions and level support. Pt. [place] land with his daughter. They do live in seperate houses, but are often together. Strong family support system. I provided my contact information to Layla for her to reach me with requests for updates or questions regarding care coordination. Layla stated that the best number to reach her at is [phone].
--- NOTE | 2021-06-14 14:15 | NUR ---
PT'S DAUGHTER ARRIVED TO SEE PT. DR CREWS ENTERED ROOM AND GAVE UPDATE REGARDING STATUS. DISCUSSED WITH DR CREWS THE RESULT OF THE SEDATION VACATION YESTERDAY AND TODAY, WITH PT NOT REPONDING TO NOXIOUS STIMULI. FEELS DUE TO HEAVY SEDATIVE AND PT JUST NEEDS EXTRA TIME. PLANNING ON BEGINNING WEANS IN A FEW DAYS. STATED TO DAUGHTER THAT HEPATOMEGALY ON CT WAS LIKELY FATTY LIVER. DAUGHTER DENIED FURTHER QUESTIONS
--- NOTE | 2021-06-14 17:32 | NUR ---
SHIFT SUMMARY: PT REMAINS INTUBATED AND SEDATED ON AC 16/400/12/65%. SEDATED WITH PROPOFOL AND FENTANYL. HAS BEEN OFF PRESSORS BUT BP SOFT WITH APPROPRIATE MAPS. SP CATH PLACED TO RIGHT LOWER ABDOMEN AND HAS BEEN VOIDING WELL WITH THIS. PT ABLE TO TOLERATE REPOSITIONING TO BACK AND RIGHT SIDE NOW. DAUGHTER AT BEDSIDE. NO ACUTE NEEDS OR CONCERNS AT THIS TIME.
[2021-06-14 17:50] LABS: Vancomycin, Trough 18.3 ug/mL (5.0-10.0)
--- NOTE | 2021-06-14 21:41 | NUR ---
ASSUMPTION OF CARE PT REMAINS INTUBATED, VENT SETTINGS AC /60% WITH SPO2 >93%. PT RECEIVING PROPOFOL 40MCG/KG/MIN AND FENTANYL 50MCG/HR. OGT CONNECTED TO LOW INT SUCTION WITH BROWN DRAINAGE. SUPRAPUBIC CATHETER PLACED EARLIER TODAY. SITE WNL, DRAINING CLEAR/YELLOW URINE. BOWEL TONES ACTIVE. MILD EDEMA IN EXTREMITIES. SEE SHIFT ASSESSMENT. TALKED WITH PALMER (DAUGHTER) ON TELEPHONE FOR UPDATE. PALMER REPORTS PT HAS HISTORY OF CHRONIC L SHOULDER PAIN THAT HE RECEIVES CORTISONE SHOTS FOR. SEE SHIFT ASSESSMENT.
[2021-06-15 04:35] LABS: BASOPHILS ABSOLUTE AUTO 0.02 K/mm3 (0.00-0.23); BASOPHILS PERCENT AUTO 0 % (0-2); EOSINOPHILS ABSOLUTE AUTO 0.03 K/mm3 (0.00-0.68); EOSINOPHILS PERCENT AUTO 0 % (0-6); Hematocrit 37.8 % (37.0-53.0); Hemoglobin 12.4 g/dL (13.5-17.5); IMMATURE GRAN ABSOLUTE AUTO 0.14 K/mm3 (0.00-0.10); IMMATURE GRAN PERCENT AUTO 1 % (0-1); LYMPHOCYTES ABSOLUTE AUTO 1.69 K/mm3 (0.84-5.20); LYMPHOCYTES PERCENT AUTO 15 % (21-46); MONOCYTES ABSOLUTE AUTO 0.64 K/mm3 (0.16-1.47); MONOCYTES PERCENT AUTO 6 % (4-13); Mean Corpuscular HGB 30.8 pg (26.0-34.0); Mean Corpuscular HGB Conc 32.8 g/dL (31.5-36.5); Mean Corpuscular Volume 94 fL (80-100); Mean Platelet Volume 10.5 fL (9.1-12.4); NEUTROPHILS ABSOLUTE AUTO 9.15 K/mm3 (1.96-9.15); NEUTROPHILS PERCENT AUTO 78 % (41-73); Platelet Count 246 K/mm3 (150-400); RDW Coefficient Variation 14.3 % (11.7-14.2); RDW Standard Deviation 49.6 fL (35.1-46.3); Red Blood Cell Count 4.02 M/mm3 (4.30-5.90); White Blood Cell Count 11.67 K/mm3 (4.00-11.30)
[2021-06-15 04:55] LABS: Albumin, Blood 2.5 g/dL (3.4-5.0); Anion Gap 7 mmol/L (6-16); Blood Urea Nitrogen 15 mg/dL (8-24); Bun/Creatinine Ratio 18.9 (12.0-20.0); CO2, Blood 27 mmol/L (21-32); Chloride, Blood 108 mmol/L (98-108); Creatinine, Blood 0.79 mg/dL (0.60-1.20); Glomerular Filtration Rate >60 (60-); Glucose, Blood 92 mg/dL (70-99); Magnesium, Blood 1.9 mg/dL (1.6-2.4); Phosphorus, Blood 1.6 mg/dL (2.5-4.9); Potassium, Blood 3.8 mmol/L (3.5-5.5); Sodium, Blood 142 mmol/L (136-145)
--- NOTE | 2021-06-15 05:47 | NUR ---
SHIFT SUMMARY PT REMAINS INTUBATED, VENT SETTINGS 16/500/12/60% WITH SPO2 >92%. PT RECEIVING PROPOFOL 25MCG/KG/MIN, FENTANYL 50MCG/HR, AND NS 40ML/HR. OGT CONNECTED TO LOW INT SUCTION WITH BROWN DRAINAGE. BOWEL TONES ACTIVE. 2 BMS THIS SHIFT. SUPRAPUBIC CATH INSERTION SITE WNL, DRESSING INTACT. CATH CONTINUES TO DRAIN CLEAR YELLOW URINE. SHIFT OUTPUT OF 1975ML. WILL REPORT TO ONCOMING RN.
--- NOTE | 2021-06-15 08:00 | NUR ---
ASSUMED CARE PT. REMAINS SEDATED AND INTUBATED, PROPOFOL DECREASED TO 25MCG/KG/HR PER ELEMENTARY SCHOOL COUNSELOR RN AND PT CONTINUES ON FENTANYL GTT AT 50MCG/HR CONTINUOUS. PT. HAS FACIAL GRIMACE WITH ORAL CARE AND DOES HAVE COUGH AND GAG. PT. SCLERA REMAIN RED, DR. CREWS NOTIFIED. VENT SETTINGS OF AC 16,500,PEEP12, 60% THIS AM. PT. HAS THICK WHITE AND RED SECRETIONS FROM ETT. PT. HAS OG TO LIS, WITH BROWN SECRETIONS FROM OG. PT. HAS SUPRAPUBIC CATH DRAINING, EASILY KINKS, CONTINUES TO DRAIN YELLOW URINE. VSS THIS AM. BILAT WRIST RESTRAINTS IN PLACE TO PROTECT LINES AND TUBES
--- NOTE | 2021-06-15 16:22 | NUR ---
SEDATION VACATION PT. PROPOFOL AND FENTANYL PLACED ON STAND BY FOR 1 HR AND 30 MIN. PT. FACIAL GRIMACE WORSENED AND PT. RAMOS PULLING LEGS AND AGAINST RESTRAINTS OCCASIONALLY, HOWEVER GAZE REMAINED UPWARD AND NOT FOLLOWING COMMANDS. RR INCREASED TO THE 30S AND SPO2 DOWN TO 87%. RESEDATED, DR. CREWS NOTIFIED. PLANS FOR HEAD CT.
--- NOTE | 2021-06-15 18:15 | NUR ---
SHIFT SUMMARY PT. REMAINS SEDATED AND INTUBATED. VSS AT THIS TIME. PT. SEDATION RESTARTED AT 35MCG/KG/HR AND FENTANYL 50MCG/KG/HR. PLANS FOR HEAD CT THIS PM SUPRAPUBIC CATHETER CONTINUES TO DRAIN WELL. FAMILY AT BEDSIDE TODAY. LACRILUBE APPLIED TO EYES TODAY. REPORT TO ONCOMING RN.
--- NOTE | 2021-06-15 21:34 | NUR ---
ASSUMPTION OF CARE PT REMAINS INTUBATED WITH VENT SETTINGS 16/500/12/55% WITH SPO2 >92%. PT RECEIVING PROPOFOL 35MCG/KG/MIN, FENTANYL 50MCG/HR, AND NS 40ML/HR. OGT REMAINS IN PLACE WITH TUBE FEEDING INFUSING. ETT HAS A SMALL AMOUNT OF LEAL/RED SECRETIONS. PT HAD SMALL BM, BOWEL TONES ACTIVE. SUPRAPUBIC CATH REMAINS IN PLACE DRAINING CLEAR/YELLOW URINE. DRESSING CHANGED AND SITE WNL. PT TAKEN TO CT, PT TOLERATED WELL. SEE SHIFT ASSESSMENT.
[2021-06-16 03:25] LABS: BASOPHILS ABSOLUTE AUTO 0.03 K/mm3 (0.00-0.23); BASOPHILS PERCENT AUTO 0 % (0-2); EOSINOPHILS ABSOLUTE AUTO 0.14 K/mm3 (0.00-0.68); EOSINOPHILS PERCENT AUTO 2 % (0-6); Hematocrit 35.3 % (37.0-53.0); Hemoglobin 11.5 g/dL (13.5-17.5); IMMATURE GRAN ABSOLUTE AUTO 0.13 K/mm3 (0.00-0.10); IMMATURE GRAN PERCENT AUTO 2 % (0-1); LYMPHOCYTES ABSOLUTE AUTO 1.72 K/mm3 (0.84-5.20); LYMPHOCYTES PERCENT AUTO 21 % (21-46); MONOCYTES ABSOLUTE AUTO 0.51 K/mm3 (0.16-1.47); MONOCYTES PERCENT AUTO 6 % (4-13); Mean Corpuscular HGB 30.8 pg (26.0-34.0); Mean Corpuscular HGB Conc 32.6 g/dL (31.5-36.5); Mean Corpuscular Volume 95 fL (80-100); Mean Platelet Volume 10.1 fL (9.1-12.4); NEUTROPHILS ABSOLUTE AUTO 5.51 K/mm3 (1.96-9.15); NEUTROPHILS PERCENT AUTO 69 % (41-73); Platelet Count 230 K/mm3 (150-400); RDW Coefficient Variation 14.2 % (11.7-14.2); RDW Standard Deviation 49.1 fL (35.1-46.3); Red Blood Cell Count 3.73 M/mm3 (4.30-5.90); White Blood Cell Count 8.04 K/mm3 (4.00-11.30)
[2021-06-16 03:40] LABS: Anion Gap 5 mmol/L (6-16); Blood Urea Nitrogen 16 mg/dL (8-24); CO2, Blood 28 mmol/L (21-32); Chloride, Blood 110 mmol/L (98-108); Glomerular Filtration Rate >60 (60-); Glucose, Blood 97 mg/dL (70-99); Phosphorus, Blood 2.2 mg/dL (2.5-4.9); Potassium, Blood 3.2 mmol/L (3.5-5.5); Sodium, Blood 143 mmol/L (136-145)
--- NOTE | 2021-06-16 06:45 | NUR ---
SHIFT SUMMARY PT REMAINS INTUBATED, VENT SETTINGS 16/500/12/60%. PT RECEIVING PROPOFOL 30MCG/KG/MIN AND FENTANYL 50MCG/HR. VSS. TUBE FEEDING CONTINUES TO INFUSE VIA OGT AT GOAL RATE. PT HAD 2 LOOSE BMS THIS SHIFT. SUPRAPUBIC CATH SITE WNL DRAINING TEA COLORED URINE. WILL REPORT TO ONCOMING RN.
--- NOTE | 2021-06-16 10:00 | NUR ---
DR CREWS ROUNDED, ANTIBIOTICS CHANGED WBC THIS AM 8.04
--- NOTE | 2021-06-16 10:05 | NUR ---
DAUGHTER PALMER CALLED, UPDATED PATIENTS STATUS
--- NOTE | 2021-06-16 10:23 | NUR ---
DR JAMISON ROUNDED ON PATIENT
[2021-06-16] MEDS ORDERED: CHOLESTYRAMI239.4 G1 PO (12:40)
[2021-06-16] MEDS ORDERED: METO25 PO (12:42)
--- NOTE | 2021-06-16 14:06 | NUR ---
DAUGHTER SUMMER AT BEDSIDE
--- NOTE | 2021-06-16 14:41 | NUR ---
PATIENT GRIMACING AND FIGHTING OPENING HIS EYES, DAUGHTER AT BEDSIDE HELPFUL, DOES NOT FOLLOW DIRECTIONS TO SQUEEZE FINGERS
--- NOTE | 2021-06-16 15:06 | NUR ---
Per chart review, pt. remains on vent. Disposition unknown. Pt. living on land with daughter Summer prior to admit. Was very independent. Family is hopeful that he will be able to return home eventually. Plan to continue to follow patient's progress and assist with care coordination as needed. Patient's daughter has been provided with my contact information. Family plans to visit pt. as allowed.
--- NOTE | 2021-06-16 16:57 | NUR ---
SEDATION HOLIDAY STARTED 1553 TO 1641, PATIENTS EYES TRACKED STAFF IN THE ROOM, ANSWERED YES AND NO QUESTIONS WITH HIS HEAD, WITHDREW FROM PAINFUL STIMULUS, FOLLOW DIRECTIONS TO SQUEEZE FINGERS, SBP INCREASE FROM 120'S TO 140'S, WAS EMOTIONAL CRYING BUT FOLLOWED DIRECTIONS TO STAY CALM. DAUGHTER AT BEDSIDE HELPFUL WITH THE CARE AND HOLIDAY.
--- NOTE | 2021-06-16 18:20 | NUR ---
SEDATION HOLIDAY NEURO OREINTATION IMPROVED, ANSWERS YES AND NO WITH HEAD, SQUEEZED FINGER, TRACKED STAFF IN ROOM, HEART RATE HELD IN THE 70'S, SBP INCREASED FROM 120'S TO 140'S, ROM TO EXTREMITIES, BASELINE ALERT AND ORIENTED X4 BEFORE SEDATION AND UNTUBATION, NSR TO ST HR, OG PLACEMENT CHECKED, TUBE FEED AT GOAL 20 ML/HR, DIARREHA X2 TODAY, SUPRAPUBIC CLEAR TEA COLORED, NO DRAINAGE FROM SUPRA PUBIC SITE, SKIN INTACT, REDDNESS ON BUTTOCK, CL R SUBCLAV REPOSITINED THROUGH SHIFT, RESTARINTS IN PLACE, CSM+, POOR PEDAL PULSE IN LEFT FOOT, EDEMA GREATER ON LEFT FOOT THAN RIGHT, HX OF ACHILES TENDON DAMAGE ON THE LEFT FOOT, WILL REPORT TO PM ANGEL
--- NOTE | 2021-06-16 19:51 | NUR ---
ASSUMED CARE OF PT AT 1900, REPORT RECEIVED FROM RAHUL ORTIZ. PT INTUBATED AND SEDATED. VENT SETTINGS AC 16/500/12/65% WITH SPO2 93%. LUNGS CLEAR WITH DIM BASES, SCANT THICK WHITE SECRETIONS VIA ETT. HYPOACTIVE BOWEL TONES, MOD DISTENTION TO ABD, FIRM TO PALPATE. SUPRAPUBIC CATH, DRESSING CDI, DRAINING DARK YELLOW URINE TO GRAVITY. PULSES PALPABLE IN ALL EXTREMITIES, 2+ EDEMA TO RUE & LLE. CURRENTLY INFUSING PROPOFOL AT 30 MCG/KG AND FENTANYL AT 50 MCG/HR. OG WITH TF PIVOT INFUSING AT GOAL RATE OF 20 ML/HR WITH 30 Q4 WATER FLUSHES. BED BATH COMPLETED, REDNESS NOTED TO BACKSIDE, INTACT.
[2021-06-17 04:23] LABS: BASOPHILS ABSOLUTE AUTO 0.06 K/mm3 (0.00-0.23); BASOPHILS PERCENT AUTO 1 % (0-2); EOSINOPHILS PERCENT AUTO 4 % (0-6); Hematocrit 36.1 % (37.0-53.0); Hemoglobin 11.7 g/dL (13.5-17.5); IMMATURE GRAN ABSOLUTE AUTO 0.33 K/mm3 (0.00-0.10); IMMATURE GRAN PERCENT AUTO 5 % (0-1); LYMPHOCYTES PERCENT AUTO 24 % (21-46); MONOCYTES ABSOLUTE AUTO 0.63 K/mm3 (0.16-1.47); MONOCYTES PERCENT AUTO 9 % (4-13); Mean Corpuscular HGB 30.9 pg (26.0-34.0); Mean Corpuscular HGB Conc 32.4 g/dL (31.5-36.5); Mean Corpuscular Volume 95 fL (80-100); Mean Platelet Volume 9.6 fL (9.1-12.4); NEUTROPHILS ABSOLUTE AUTO 4.02 K/mm3 (1.96-9.15); NEUTROPHILS PERCENT AUTO 57 % (41-73); Platelet Count 237 K/mm3 (150-400); RDW Coefficient Variation 14.3 % (11.7-14.2); RDW Standard Deviation 49.8 fL (35.1-46.3); Red Blood Cell Count 3.79 M/mm3 (4.30-5.90); White Blood Cell Count 7.04 K/mm3 (4.00-11.30)
[2021-06-17 04:41] LABS: Anion Gap 5 mmol/L (6-16); Blood Urea Nitrogen 17 mg/dL (8-24); Bun/Creatinine Ratio 26.9 (12.0-20.0); CO2, Blood 29 mmol/L (21-32); Chloride, Blood 110 mmol/L (98-108); Creatinine, Blood 0.63 mg/dL (0.60-1.20); Glomerular Filtration Rate >60 (60-); Glucose, Blood 108 mg/dL (70-99); Magnesium, Blood 2.1 mg/dL (1.6-2.4); Phosphorus, Blood 2.7 mg/dL (2.5-4.9); Potassium, Blood 3.4 mmol/L (3.5-5.5); Sodium, Blood 144 mmol/L (136-145)
--- NOTE | 2021-06-17 06:21 | NUR ---
SHIFT SUMMARY PT REMAINS INTUBATED AND SEDATED. VENT SETTINGS AC 16/500/12/50%, SPO2 >90%. PROPOFOL INFUSING AT 30 MCG/KG, FENTANYL AT 50 MCG/HR AND NS AT 40 ML/HR. LUNGS COARSE THIS AM WITH DIM BASES. ABD FIRM TO PALPATE, HYPOACTIVE BOWEL TONES. MINIMAL RESIDUALS VIA OGT THIS SHIFT. HR 50'S SINUS ON MONITOR, SBP 100-115'S. SUPRAPUBIC CATH DRAINING TEA COLORED URINE TO GRAVITY. PT WITH 1 MEDIUM LOOSE BOWEL MOVEMENT THIS SHIFT. DAUGHTER CALLED FOR UPDATES TWICE THIS SHIFT, ALL ANSWERS QUESTIONED. WILL CONTINUE TO MONITOR UNTIL REPORT GIVEN TO ONCOMING RN.
--- NOTE | 2021-06-17 06:44 | NUR ---
NEW BAG OF FENTANYL HUNG IN LOCKBOX IN PT'S ROOM, NOT SCANNED INTO EMAR. WILL HANDOFF TO ONCOMING RN DURING SHIFT CHANGE.
--- NOTE | 2021-06-17 08:00 | NUR ---
Assumed care of pt at 0700. Report received from Sonia ORTIZ. Drips: Propofol 30 mcg/kg/min Fentanyl 50 mcg/hr Potassium Chloride and TKO ETT: 8.0 cm, 25 cm at teeth. Vent: ACVC 16/500/12/50%. SpO2 90% or greater
--- NOTE | 2021-06-17 14:15 | NUR ---
Pt's daughter visiting at bedside. Updated by this RN and Dr Chand. Daughter denies additional questions.
--- NOTE | 2021-06-17 14:30 | NUR ---
SEDATION INTERRUPTION Propofol stopped from [id number]. Occasional coughing noted, which resolved with ETT suctioning. Pt calm. Gently pulling on restraints but no excessive attempt to self-extubate. Pt moving both legs in bed. Pt nods head to answer yes/no questions. Technology Infusion Specialist with hands and wiggles toes when instructed to do so. Propofol restarted due to pt becoming hypertensive with SBP in 160s and pt being visibly distraught, crying continuously after daughter arrived to visit.
--- NOTE | 2021-06-17 17:51 | NUR ---
SUMMARY Neuro: Sedated with 40 mcg/kg/min propofol, 50 mcg/hr fentanyl. Responsive to painful stimulus. Moves all extremities. 3 mm pupils, PERRL. Both eyes bloodshot in appearance but sclera of left eye is more red than previously noted. Antibiotic eyedrops started today. Cough and gag present. Musculoskeletal: Requires Q2H repositioning by staff. Mobility limited by cords, lines, tubes, deconditioning and weakness. Respiratory: 8.0 cm ETT, 25 cm at teeth. Vent settings ACVC 16/500/12/50%. SpO2 90% or greater. Moderate amounts of thick lee sputum suctioned from ETT. Cardiac: SR per monitor. BP stable. Unremarkable heart sounds. 2+ edema BUE, improving after pt received lasix today. Capillary refill less than 3 seconds BUE and BLE. 1+ radial, pedal, posttibial pulses. GI: Pt remains on Pivot 1.5 at goal rate of 20 mL/hr with 30 mL flush Q4H. Formula order changed to Vital AF due to shortage of Pivot. Plan to switch to ordered tube feed when current formula in room expires. Regular BT. 0 mL residual measured this shift. 3 incontinent BMs this shift. : Good urine output this shift. Skin: Unremarkable. Remains C/D/I Psychosocial: Unable to assess due to intubation/sedation. Pt's daughter visited at bedside this afternoon.
--- NOTE | 2021-06-17 19:35 | NUR ---
ASSUMED CARE OF PT AT 1900, REPORT RECEIVED FROM BOWEN ORTIZ. PT INTUBATED AND SEDATED. VENT SETTINGS AC 16/500/12/55%, MAINTAINING SPO2 >87%. LUNGS CLEAR WITH DIM BASES. CURRENTLY INFUSING PROPOFOL AT 40 MCG/KG/MIN, FENTANYL AT 50 MCG/HR, AND NS AT 20 ML/HR. PT SPONTANEOUSLY OPENS EYES, DOES NOT TRACK OR FOLLOW ANY COMMANDS. BOWEL TONES ACTIVE, ABD FIRM TO PALPATE. SUPRAPUBIC CATH DRAINING CLEAR GREEN URINE TO GRAVITY. EDEMA 1+ T/O. HR 70'S SINUS ON MONITOR, SBP 130'S.
[2021-06-18 04:15] LABS: Hematocrit 36.2 % (37.0-53.0); Hemoglobin 11.7 g/dL (13.5-17.5); Mean Corpuscular HGB 30.5 pg (26.0-34.0); Mean Corpuscular HGB Conc 32.3 g/dL (31.5-36.5); Mean Corpuscular Volume 94 fL (80-100); Mean Platelet Volume 9.7 fL (9.1-12.4); Platelet Count 267 K/mm3 (150-400); RDW Coefficient Variation 14.2 % (11.7-14.2); RDW Standard Deviation 48.8 fL (35.1-46.3); Red Blood Cell Count 3.84 M/mm3 (4.30-5.90); White Blood Cell Count 7.81 K/mm3 (4.00-11.30)
[2021-06-18 04:54] LABS: Anion Gap 6 mmol/L (6-16); Blood Urea Nitrogen 16 mg/dL (8-24); Bun/Creatinine Ratio 27.7 (12.0-20.0); CO2, Blood 30 mmol/L (21-32); Calcium, Blood 8.2 mg/dL (8.5-10.1); Chloride, Blood 106 mmol/L (98-108); Creatinine, Blood 0.58 mg/dL (0.60-1.20); Glomerular Filtration Rate >60 (60-); Glucose, Blood 103 mg/dL (70-99); Magnesium, Blood 2.1 mg/dL (1.6-2.4); Phosphorus, Blood 3.2 mg/dL (2.5-4.9); Potassium, Blood 3.2 mmol/L (3.5-5.5); Sodium, Blood 142 mmol/L (136-145)
[2021-06-18 05:00] LABS: BAND PERCENT MAN 5 % (0-8); BASOPHILS ABSOLUTE MAN 0.07 K/mm3 (0.00-0.23); BASOPHILS PERCENT MAN 1 % (0-2); EOSINOPHILS ABSOLUTE MAN 0.31 K/mm3 (0.00-0.68); EOSINOPHILS PERCENT MAN 4 % (0-6); LYMPHOCYTES ABSOLUTE MAN 1.56 K/mm3 (0.84-5.20); LYMPHOCYTES PERCENT MAN 20 % (21-46); METAMYELOCYTE ABSOLUTE MAN 0.07 K/mm3 (0.00-0.00); METAMYELOCYTE PERCENT MAN 1 % (0-0); MONOCYTES ABSOLUTE MAN 0.85 K/mm3 (0.16-1.47); MONOCYTES PERCENT MAN 11 % (4-13); MYELOCYTE ABSOLUTE MAN 0.07 K/mm3 (0.00-0.00); MYELOCYTE PERCENT MAN 1 % (0-0); NEUTROPHILS ABSOLUTE MAN 4.84 K/mm3 (1.96-9.15); SEG NEUTROPHILS PERCENT MAN 57 % (41-73); TOTAL CELLS COUNTED 100
--- NOTE | 2021-06-18 06:15 | NUR ---
SHIFT SUMMARY PT REMAINS INTUBATED AND SEDATED. VENT SETTINGS AC 16/500/12/60%, SPO2 >88%. LUNGS CLEAR WITH DIMINISHED BASES, SCANT AMOUNT OF THICK BLOOD STREAKED SECRETIONS VIA ETT. PT HAD 2 BOWEL MOVEMENTS THIS SHIFT, BROWN AND LOOSE BOTH SMALL IN SIZE. SUPRAPUBIC CATH DRAINING CLEAR GREEN URINE TO GRAVITY. PROPOFOL INFUSING AT 40 MCG/KG/MIN, FENTANYL AT 50 MCG/HR, AND NS AT 20 ML/HR. PT SPONTANEOUSLY OPENS EYES, NOT FOLLOWING ANY COMMANDS. PT ABLE TO MOVE ALL EXTREMITIES, WEAKNESS NOTED.
--- NOTE | 2021-06-18 07:40 | NUR ---
Assumed care of pt at 0700 from Sonia ORTIZ. Drips: Propofol 40 mcg/kg/min Fentanyl 50 mcg/hr TKO and potassium chloride as ordered ETT: 8.0 cm, 25 cm at teeth Vent: ACVC 16/400/12/60%.
--- NOTE | 2021-06-18 11:00 | NUR ---
This morning, FiO2 was incrementally increased to achieve SpO2 of 88% or greater (goal SpO2 per Dr Ray). FiO2 up to 100% but no improvement noted in SpO2. RT notified. Dr Ray notified. PEEP increased to 18. Plan to decrease sedation. Propofol down to 25 mcg/kg/min.
--- NOTE | 2021-06-18 14:28 | NUR ---
Pt's daughter, Layla, at bedside. Pt remains on 25 mcg/kg/min propofol. Pt is alert. Calm, cooperative. Tolerating repositioning with minimal coughing. Vent settings ACVC 16/500/18/65%. SpO2 90% or greater.
--- NOTE | 2021-06-18 18:13 | NUR ---
SUMMARY Neuro: Receiving propofol at 25 mcg/kg/min. Fentanyl 50 mcg/hr. Alert. Answers yes/no questions. Follows commands. Calm and cooperative with care. Moves all extremities. Remains restrained due to risk of self-extubation. Musculoskeletal: Pt independently moving all extremities and sometimes repositions hips or lifts scarum off the bed. Repositioned Q2H. Respiratory: 8.0 cm ETT, 25 cm at teeth. Vent settings ACVC 16/500/18/60%. SpO2 90% or greater. Cardiac: SR with stable BP. 1+ edema BLE. Nonpitting edema bilateral hands. Capillary refill less than 3 seconds. 1+ radial, pedal, and posttibial pulses. GI: TF and flush per orders. 0 ml residual measured this shift. Pt had one BM. : Good urine output from wright catheter Psychosocial: Pt alert, tearful at times, but overall calm. Interacted with daughter during visiting hours.
--- NOTE | 2021-06-18 19:27 | NUR ---
ASSUMED CARE OF PT AT 1900, REPORT RECEIVED FROM BOWEN ORTIZ. PT INTUBATED AND SEDATED. VENT SETTINGS AC 16/500/18/60%, SPO2 >88%. PT AWAKE AND FOLLOWING COMMANDS, ATTEMPTING TO MOUTH WORDS. MOVEMENT TO ALL EXTREMITIES. HR 90'S SINUS ON MONITOR, SBP 170'S. ABD FIRM TO PALPATE, DENIES PAIN. NODS HEAD APPROPRIATELY TO YES/NO QUESTIONS. SUPRAPUBIC CATH DRAINING PINK TINGED URINE TO GRAVITY. PROPOFOL INFUSING AT 25 MCG/KG/MIN, FENTANYL AT 50 MCG/HR, AND NS AT 20 ML/HR.
[2021-06-19 04:56] LABS: Hematocrit 36.9 % (37.0-53.0); Hemoglobin 11.7 g/dL (13.5-17.5); Mean Corpuscular HGB 29.9 pg (26.0-34.0); Mean Corpuscular HGB Conc 31.7 g/dL (31.5-36.5); Mean Corpuscular Volume 94 fL (80-100); Mean Platelet Volume 9.3 fL (9.1-12.4); Platelet Count 280 K/mm3 (150-400); RDW Standard Deviation 47.9 fL (35.1-46.3); Red Blood Cell Count 3.91 M/mm3 (4.30-5.90)
[2021-06-19 05:13] LABS: Anion Gap 5 mmol/L (6-16); Blood Urea Nitrogen 14 mg/dL (8-24); Bun/Creatinine Ratio 22.5 (12.0-20.0); CO2, Blood 30 mmol/L (21-32); Calcium, Blood 8.4 mg/dL (8.5-10.1); Chloride, Blood 106 mmol/L (98-108); Creatinine, Blood 0.62 mg/dL (0.60-1.20); Glomerular Filtration Rate >60 (60-); Glucose, Blood 99 mg/dL (70-99); Magnesium, Blood 2.4 mg/dL (1.6-2.4); Phosphorus, Blood 3.8 mg/dL (2.5-4.9); Potassium, Blood 3.4 mmol/L (3.5-5.5); Sodium, Blood 141 mmol/L (136-145)
[2021-06-19 05:29] LABS: BAND PERCENT MAN 1 % (0-8); BASOPHILS ABSOLUTE MAN 0.06 K/mm3 (0.00-0.23); BASOPHILS PERCENT MAN 1 % (0-2); EOSINOPHILS ABSOLUTE MAN 0.33 K/mm3 (0.00-0.68); EOSINOPHILS PERCENT MAN 5 % (0-6); LYMPHOCYTES PERCENT MAN 27 % (21-46); METAMYELOCYTE ABSOLUTE MAN 0.06 K/mm3 (0.00-0.00); METAMYELOCYTE PERCENT MAN 1 % (0-0); MONOCYTES ABSOLUTE MAN 0.87 K/mm3 (0.16-1.47); MONOCYTES PERCENT MAN 13 % (4-13); NEUTROPHILS ABSOLUTE MAN 3.55 K/mm3 (1.96-9.15); SEG NEUTROPHILS PERCENT MAN 52 % (41-73); TOTAL CELLS COUNTED 100
--- NOTE | 2021-06-19 05:45 | NUR ---
SHIFT SUMMARY PT REMAINS INTUBATED AND SEDATED. VENT SETTINGS ACVC 16/500/16/50%, MAINTAINING SPO2 >90%. LUNGS CLEAR WITH DIM BASES. PT WITH FREQUENT COUGH WHEN AWAKE, SMALL AMOUNT OF THICK WHITE SECRETIONS VIA ETT. PROPOFOL INFUSING AT 25 MCG/KG/MIN, NS AT 20 ML/HR, AND FENTANYL AT 50 MCG/HR. PT OPENS EYES TO VERBAL STIMULI, FOLLOWING COMMANDS AND NODDING HEAD APPROPRIATELY. ABD WITH ACTIVE BOWEL TONES, 1 LARGE LOOSE BM THIS SHIFT. SUPRAPUBIC CATH DRAINING PINK TINGED TO TEA COLORED URINE THIS SHIFT, URINE BECOMES MORE PINK TINGED WITH HARD TURNS ONTO RIGHT SIDE.
--- NOTE | 2021-06-19 09:53 | NUR ---
ASSUMED PT CARE THIS AM. PT AWAKE, EYES OPEN, TRACKING MOVEMENTS, FOLLOWING COMMANDS. PT APPEARS ANXIOUS AT TIME, PROP TITRATED UP TO 30MCG/KG/MIN TO ACHIEVE RASS 0. VENT SETTINGSAC 16, 500, 16, 50%, FIO2 INCREASED TO 65% OVER 1 HR TO MAINTAIN SATS GREATER THAN 90. ORAL CARE, TURNS PROVIDED FOR COMFORT/SAFETY. SUBRAPUBIC CATH IN PLACE, INTACT AND PATENT. K REPLACED PER PROTOCOL.
--- NOTE | 2021-06-19 18:33 | NUR ---
SHIFT SUMMARY PT NODS YES/NO, RAMOS, FOLLOWS COMMANDS THROUGHOUT SHIFT. PROP RANGE DURING SHIFT 15MCG/KG/MIN TO 35 MCG/KG/MIN. FENT INCREASED TO 75MCG/HR SECONDARY TO REPORT OF ONGOING GENERALIZED PAIN. PT VENT SETTINGS REMAIN 16, 500, 16, FIO2 RANGE 50-75%, 60% AT END OF SHIFT. ALMOST 4 L OUT OF SUPRAPUBIC CATH. DTR AT BEDSIDE DURING VISITING HOURS. PT HAD 1 LIQUID BM THIS AFTERNOON, SUSPICOUS FOR BLOOD IN STOOL. MD SUAZO UPDATED, ORDER FOR HEMOCULT WITH NEXT BM.
--- NOTE | 2021-06-19 19:30 | NUR ---
ASSUMED CARE RECEIVED REPORT FROM NELIDA WEI RN AT 1900. PT IS INTUBATED AND SEDATED. PROPOFOL 30MCG/KG/MIN, FENTANYL 75MCG/HR. PT IS ALERT AND ORIENTED TO SELF. HE IS ABLE TO RESPOND TO SIMPLE COMMANDS AND NOD YES/NO. HE TRIES TO MOUTH WORDS, BUT BECOMES EASILY FRUSTRATED AND AGITATED. VENT AC/VC 16/500/16/60%, SPO2 >90%. LUNGS ARE CLEAR T/O, DIMINISHED IN BASES. SMALL AMOUNTS OF THICK, WHITE AND BLOOD STREAKED SPUTUM WITH ETT SUCTIONING. HR NSR IN 70-80'S, BP STABLE BUT HYPERTENSIVE WITH AGITATION. ABDOMEN IS FIRM AND MODERATELY DISTENDED, BOWEL TONES ACTIVE X4. OG IN PLACE WITH VITAL AF AT 20ML/HR. RESIDUALS OF 15ML, REFED. SUPRAPUBIC CATHETER IN PLACE, BANDAGE IN RLQ, C/D/I. DRAINING TO GRAVITY, MARIELLA/TEA COLORED URINE WITH SEDIMENT. CENTRAL LINE TO RIJ, INFUSING AND DRESSING INTACT. ORDERS REVIEWED AND WILL TREAT PRESCRIBED.
--- NOTE | 2021-06-20 02:03 | NUR ---
PT HAD SMALL LIQUID, BROWN BOWEL MOVEMENT. BRIGHT RED BLOOD WAS PRESENT. ATTEMPTED TO OBTAIN SAMPLE FOR OCCULT [facility], BUT LAB CALLED AND STATED SAMPLE WAS INSUFFICIENT. WILL ATTEMPT TO COLLECT SAMPLE WITH NEXT BM.
[2021-06-20 03:47] LABS: BASOPHILS ABSOLUTE AUTO 0.05 K/mm3 (0.00-0.23); BASOPHILS PERCENT AUTO 1 % (0-2); EOSINOPHILS ABSOLUTE AUTO 0.32 K/mm3 (0.00-0.68); EOSINOPHILS PERCENT AUTO 5 % (0-6); Hemoglobin 11.8 g/dL (13.5-17.5); IMMATURE GRAN ABSOLUTE AUTO 0.24 K/mm3 (0.00-0.10); IMMATURE GRAN PERCENT AUTO 4 % (0-1); LYMPHOCYTES ABSOLUTE AUTO 1.44 K/mm3 (0.84-5.20); LYMPHOCYTES PERCENT AUTO 24 % (21-46); MONOCYTES ABSOLUTE AUTO 0.64 K/mm3 (0.16-1.47); MONOCYTES PERCENT AUTO 11 % (4-13); Mean Corpuscular HGB 30.7 pg (26.0-34.0); Mean Corpuscular HGB Conc 32.8 g/dL (31.5-36.5); Mean Corpuscular Volume 94 fL (80-100); NEUTROPHILS ABSOLUTE AUTO 3.26 K/mm3 (1.96-9.15); NEUTROPHILS PERCENT AUTO 55 % (41-73); Platelet Count 277 K/mm3 (150-400); RDW Coefficient Variation 13.9 % (11.7-14.2); RDW Standard Deviation 47.4 fL (35.1-46.3); Red Blood Cell Count 3.84 M/mm3 (4.30-5.90); White Blood Cell Count 5.95 K/mm3 (4.00-11.30)
[2021-06-20 04:02] LABS: Anion Gap 5 mmol/L (6-16); Blood Urea Nitrogen 16 mg/dL (8-24); Bun/Creatinine Ratio 23.7 (12.0-20.0); CO2, Blood 30 mmol/L (21-32); Calcium, Blood 8.6 mg/dL (8.5-10.1); Chloride, Blood 105 mmol/L (98-108); Creatinine, Blood 0.68 mg/dL (0.60-1.20); Glomerular Filtration Rate >60 (60-); Glucose, Blood 104 mg/dL (70-99); Magnesium, Blood 2.6 mg/dL (1.6-2.4); Phosphorus, Blood 3.9 mg/dL (2.5-4.9); Potassium, Blood 3.2 mmol/L (3.5-5.5); Sodium, Blood 140 mmol/L (136-145)
--- NOTE | 2021-06-20 04:51 | NUR ---
PATIENT'S FENTANYL CHANGED OVER TO MATE CHIEF SYRINGE FROM FENTANYL IN IV BAG. TO MINIMIZE FLUID INTAKE. WASTING 15 CC OF FENTANYL FROM IV BAG WITH SIMONE REID RN.
--- NOTE | 2021-06-20 06:09 | NUR ---
PT REMAINS INTUBATED AND SEDATED. PROPOFOL AT 45MCG/KG/MIN, FENTANYL AT 75MCG/HR VIA GROUND CREW LINES PERSON PUMP. PT SLEPT WELL AFTER SEDATION INCREASE. HE WAS UNABLE TO BE AROUSED TO VERBAL STIMULI OR FOLLOW COMMANDS, REMAINED SYNCHRONOUS WITH VENT. VENT CONTINUES AC/VC 16/500/16/50%, SPO2 >90%. LUNGS CLEAR/DIMINISHED T/O, RIGHT SIDE MORE DIM THAN LEFT. HR REMAINED SR IN 60'S, OCCASIONALLY SINUS CLAUDETTE IN 50'S. BP HYPOTENSIVE, MAP >65. SUPRAPUBIC CATH REMAINS IN PLACE, DRESSING IN RLQ C/D/I. DRAINING TO GRAVITY, TEA COLORED URINE WITH SEDIMENT. OG WITH VITAL AF AT GOAL OF 30ML/HR, RESIDUALS REMAINED <20ML'S T/O SHIFT. POTASSIUM THIS AM 3.2, 40MEQ GTT ORDERED AND RUNNING. PT'S DAUGHTER, SUMMER, UPDATED THIS AM. WILL REPORT TO ONCOMING RN.
--- NOTE | 2021-06-20 07:44 | NUR ---
ASSUMED PT CARE THIS AM. PT SEDATED ON PROP AT 45MCG/KG/MIN, FENT AT 75 MCG/HR. RASS -3. TITRATING PROP DOWN TO ACHEIVE RASS 0. VENT SETTINGS AC VC 16, 500, 16, 50%. PT TOLERATING VENT WELL. LUNGS CLEAR/DIM IN BASES, SCANT AMOUNT OF BLOOD TINGE SPUTUM VIA ETT. OGT CONFIRMED WITH AIR BOLUS AUSCULATATION AND GASTRIC CONTENT, RESIDUALS 20 ML AND LESS, REINSTILLED. TF AT GOAL. SUPRAPUBIC CATH INTACT AND PATENT. K BEING REPLACED PER PROTOCOL. VSS.
--- NOTE | 2021-06-20 08:49 | NUR ---
DISCUSSED BLOOD TINGE SPUTUM, BLOOD IN STOOL WITH MD KENNEY, H/H STABLE. OKAY TO GIVE LOVENOX AT THIS TIME.
--- NOTE | 2021-06-20 13:37 | NUR ---
Case conference on current status and plan of care per ICU IDT meeting. Pt with CXR planned for Sunday for f/u of pneumonia. Team reports improved O2 saturations today. Pal care to remain available for advanced care planning as needed.
--- NOTE | 2021-06-20 18:32 | NUR ---
SHIFT SUMMARY PT ON 25-40 MCG OF PROP THROUGHOUT SHIFT TO MAINTAIN RASS 0. PT ABLE TO FOLLOW COMMANDS, RAMOS. PT WITH INTERMITTENT AGITATION WHEN TRYING TO VOCALIZE/USE COMMUNICATION BOARD. FENT DECREASED TO 50MCG/HR, PT TOLERATING WELL, DENIES PAIN THROUGHOUT SHIFT. VENT SETTINGS AC VC 16, 500, 16, FIO2 45-50%. TF AT GOAL. APPROX 1 L OUT OF SUPRAPUBIC CATH. MD INFORMED THAT PT HAS BLOOD TINGE SPUTUM, AND OCCULT BLOOD SENT SECONDARY TO STREAKING IN STOOL SUSPICOUS FOR BLOOD. PT REPOSITIONED Q 2 HRS, SKIN INTACT. DTR PRESENT AT BEDSIDE DURING VISITING HOURS. UPDATED ON POC.
--- NOTE | 2021-06-20 20:55 | NUR ---
ASSUMED CARE PATIENT LYING IN BED INTUBATED ON AC/VC 16/500/16/50% AND SEDATED ON PROPOFOL @ 40MCG/KG/MIN AND FENTANYL @ 50MCG/KG/MIN. NO FAMILY AT BEDSIDE. PATIENT HAS EYES CLOSED, BUT OPENS THEM SPONTANEOUSLY AND TELEVISION IN ON. VHP INF VIA OGT @ 30ML/HR W/ 30ML Q4H WATER FLUSHES. PATIENT TOLERATING VENT WELL W/ RR @ 16 AND SPO2 GREATER THAN 90%.
[2021-06-20 22:00] LABS: Stool Occult Blood Guaiac 1 Pos (Neg)
[2021-06-21 03:55] LABS: BASOPHILS ABSOLUTE AUTO 0.04 K/mm3 (0.00-0.23); BASOPHILS PERCENT AUTO 1 % (0-2); EOSINOPHILS ABSOLUTE AUTO 0.28 K/mm3 (0.00-0.68); EOSINOPHILS PERCENT AUTO 5 % (0-6); Hematocrit 35.4 % (37.0-53.0); Hemoglobin 11.5 g/dL (13.5-17.5); IMMATURE GRAN ABSOLUTE AUTO 0.16 K/mm3 (0.00-0.10); IMMATURE GRAN PERCENT AUTO 3 % (0-1); LYMPHOCYTES ABSOLUTE AUTO 1.35 K/mm3 (0.84-5.20); LYMPHOCYTES PERCENT AUTO 25 % (21-46); MONOCYTES ABSOLUTE AUTO 0.46 K/mm3 (0.16-1.47); MONOCYTES PERCENT AUTO 8 % (4-13); Mean Corpuscular HGB 30.3 pg (26.0-34.0); Mean Corpuscular HGB Conc 32.5 g/dL (31.5-36.5); Mean Corpuscular Volume 93 fL (80-100); Mean Platelet Volume 9.2 fL (9.1-12.4); NEUTROPHILS PERCENT AUTO 58 % (41-73); Platelet Count 267 K/mm3 (150-400); RDW Coefficient Variation 13.9 % (11.7-14.2); RDW Standard Deviation 47.8 fL (35.1-46.3); White Blood Cell Count 5.49 K/mm3 (4.00-11.30)
[2021-06-21 04:12] LABS: Albumin, Blood 2.2 g/dL (3.4-5.0); Anion Gap 6 mmol/L (6-16); Blood Urea Nitrogen 17 mg/dL (8-24); Bun/Creatinine Ratio 28.1 (12.0-20.0); CO2, Blood 29 mmol/L (21-32); Calcium, Blood 8.4 mg/dL (8.5-10.1); Chloride, Blood 104 mmol/L (98-108); Glomerular Filtration Rate >60 (60-); Glucose, Blood 100 mg/dL (70-99); Magnesium, Blood 2.6 mg/dL (1.6-2.4); Phosphorus, Blood 4.1 mg/dL (2.5-4.9); Potassium, Blood 3.4 mmol/L (3.5-5.5); Sodium, Blood 139 mmol/L (136-145)
--- NOTE | 2021-06-21 05:44 | NUR ---
SHIFT SUMMARY PROPOFOL REMAINED AT 60MCG/KG/MIN THROUGHOUT MOST OF SHIFT WITH ONE PERIOD OF TIME THIS MORNING AT 50MCG/KG/MIN. PATIENT BECAME RESTLESS AND ALERT W/ THIS DECREASE IN SEDATION. FENTANYL STILL AT 50MCG/HR. FIO2 DECREASED FROM 50% TO 45% WITH SPO2 MAINTAINING GREATER THAN 90%. PATIENT HAD ONE BOWEL MOVEMENT DURING SHIFT OF JEIMY RED BLOOD W/ CLOTS PRESENT. VITAL AF AT GOAL RATE OF 30ML/HR WITH MINIMAL TO NO RESIDUALS. SUPRAPUBIC CATH DRESSING C/D/I.
--- NOTE | 2021-06-21 08:19 | NUR ---
ASSUMED CARE BEDSIDE REPORT RECIEVED. PT IS INTUBATED AND SEDATED. PT SEDATED WITH PROPOFOL AT 60 MCG/KG/MIN AND FENTANYL HABILITATION WORKER 50 MCG/HR. VENT SETTINGS AC 16, TV 500, PEEP 16, FIO2 45%. PT WITH SCANT BLOODY SECRETIONS NOTED WITH ETT SUCTION. PT DOES NOT WAKE TO VERBAL STIMULI OR FOLLOW ANY COMMANDS. WITHDRAWS TO NOXIOUS STIMULI. SBW RESTRAINTS IN PLACE. VITAL SIGNS STABLE. TF INFUSING AT GOAL RATE THROUGH OGT. CENTRAL LINE TO RIJ C/D/I. SUPRAPUBIC CATHETER IN PLACE DRAINING YELLOW OUTPUT WITH SEDIMENT. WILL CONTINUE TO MONITOR.
--- NOTE | 2021-06-21 17:37 | NUR ---
SHIFT SUMMARY NO ACUTE CHANGES THIS SHIFT. PT HAS REMAINED INTUBATED AND SEDATED. PT WITH OVER 6 HOUR PRESSURE SUPPORT TRAIL THIS SHIFT. VENT SETTINGS 7/10, FIO2 40% DURING PRESSURE SUPPORT TRAIL. PT BACK TO AC 16, TV 500, PEEP 16, FIO2 60% AT THIS TIME. PT WITH SMALL AMOUNT OF BLOODY SECRETIONS WITH ETT SUCTION. WITH SEDATION DECREASED, PT OPENS EYES SPONTANEOUSLY, MOVES ALL EXTREMITIES, AND SQUEEZES HANDS UPON COMMANDS. PT WITH PERIODS OF RESTLESSNESS WITH LESS SEDATION. PT CURRENTLY RESTING QUIELTY WITH PROPOFOL INFUSING AT 65 MCG/KG/MIN AND FENTANYL FOUNDRY SUPERINTENDANT 50 MCG/HR. NS INFUSING TKO. CL TO RIJ REMAINS C/D/I. OGT REMAINS IN PLACE WITH TF INFUSING AT GOAL RATE. SUPRAPUBIC CATH REMAINS C/D/I WITH YELLOW/PINK OUTPUT WITH SEDIMENT NOTED. PT WITH ONE MAROON BM THIS SHIFT. SBW RESTRAINTS REMAIN IN PLACE. PT DAUGHTER AT BEDSIDE AT THIS TIME. WILL CONTINUE TO MONITOR AND REPORT OFF TO ONCOMING RN.
--- NOTE | 2021-06-21 19:30 | NUR ---
ASSUMED CARE PATIENT LYING IN BED INTUBATED AND SEDATED ON PROPOFOL @ 65MCG/KG/MIN AND FENTANYL @ 50MCG/HR. CURRENT VENT SETTINGS AC/VC 16/500/16/55% TOLERATING WELL WITH RR 16 AND SPO2 LOW TO MID 90'S. SUPRAPUBIC CATH PATENT AND DRAINING TEA COLORED URINE WITH SEDIMENT PRESENT. VIT AF INF AT GR OF 30ML/HR.
[2021-06-21 20:16] LABS: International Normalized Ratio 0.98; Prothrombin Time Results 10.3 Sec (9.7-11.5)
[2021-06-22 03:19] LABS: BASOPHILS ABSOLUTE AUTO 0.03 K/mm3 (0.00-0.23); BASOPHILS PERCENT AUTO 1 % (0-2); EOSINOPHILS ABSOLUTE AUTO 0.26 K/mm3 (0.00-0.68); EOSINOPHILS PERCENT AUTO 5 % (0-6); Hematocrit 35.2 % (37.0-53.0); Hemoglobin 11.3 g/dL (13.5-17.5); IMMATURE GRAN ABSOLUTE AUTO 0.08 K/mm3 (0.00-0.10); IMMATURE GRAN PERCENT AUTO 2 % (0-1); LYMPHOCYTES ABSOLUTE AUTO 1.31 K/mm3 (0.84-5.20); LYMPHOCYTES PERCENT AUTO 24 % (21-46); MONOCYTES ABSOLUTE AUTO 0.44 K/mm3 (0.16-1.47); MONOCYTES PERCENT AUTO 8 % (4-13); Mean Corpuscular HGB 30.3 pg (26.0-34.0); Mean Corpuscular HGB Conc 32.1 g/dL (31.5-36.5); Mean Corpuscular Volume 94 fL (80-100); Mean Platelet Volume 9.2 fL (9.1-12.4); NEUTROPHILS ABSOLUTE AUTO 3.38 K/mm3 (1.96-9.15); NEUTROPHILS PERCENT AUTO 62 % (41-73); Platelet Count 277 K/mm3 (150-400); RDW Coefficient Variation 13.8 % (11.7-14.2); RDW Standard Deviation 48.5 fL (35.1-46.3); Red Blood Cell Count 3.73 M/mm3 (4.30-5.90)
[2021-06-22 03:56] LABS: Albumin, Blood 2.2 g/dL (3.4-5.0); Anion Gap 5 mmol/L (6-16); Blood Urea Nitrogen 17 mg/dL (8-24); Bun/Creatinine Ratio 24.7 (12.0-20.0); CO2, Blood 28 mmol/L (21-32); Calcium, Blood 8.2 mg/dL (8.5-10.1); Chloride, Blood 107 mmol/L (98-108); Creatinine, Blood 0.69 mg/dL (0.60-1.20); Glomerular Filtration Rate >60 (60-); Glucose, Blood 112 mg/dL (70-99); Magnesium, Blood 2.4 mg/dL (1.6-2.4); Phosphorus, Blood 4.2 mg/dL (2.5-4.9); Potassium, Blood 3.4 mmol/L (3.5-5.5); Sodium, Blood 140 mmol/L (136-145)
--- NOTE | 2021-06-22 06:31 | NUR ---
SHIFT SUMMARY NO MAJOR CHANGES DURING SHIFT. PATIENT HAD ONE BOWEL MOVEMENT OF LIQUID/CARMEN COLORED STOOL. PROPOFOL TITRATED DOWN TO 50MCG/KG/MIN W/ FENTANYL STAYING @ 50MCG/HR; HEPARIN STARTED FOR VTE PROPHYLAXIS AND LOVENOX DC'D. VENT SETTINGS AC/VC 16/500/16/50% W/ SPO2 MAINTAINING GREATER THAN 90% AND RR 16. PATIENT IS ABLE TO TRACK TO SOUND AND WITHDRAW FROM PAIN, BUT DOES NOT FOLLOW COMMANDS. MINIMAL SECRETIONS SUCTIONED FROM ETT; PINK TINGED. PATIENT'S DAUGHTER CALLED AT THE BEGINNING OF SHIFT AND END OF SHIFT WITH STATUS UPDATES GIVEN.
--- NOTE | 2021-06-22 07:15 | NUR ---
Assumed care of pt at 0700. Report recevied from Aissatou RN and Essence RN. Propofol 50 mcg/kg/min. Fentanyl 50 mcg/hr. Heparin 15 u/kg/hr. Pt alert. Calm. Tracks this RN as she moves across room. Intermittently follows commands. Remains in restraints to prevent self-extubation. 8.0 cm ETT is 25 cm at teeth. Vent settings ACVC 16/500/16/50%. SpO2 90% or greater. OG tube with feed and flush per orders. Suprapubic catheter patent and draining dark tea colored urine. Pt has RIJ, plan to change dressing today.
--- NOTE | 2021-06-22 13:10 | NUR ---
Pt on spontaneous mode with PS 10/10 and 50% FiO2. Tolerating breathing trial. Intially started with propofol off, but currently titrating propofol up as pt is getting anxious and is mildly tachycardic. Rectal tube inserted becuause pt has had 3 large liquid BMs so far this shift. Dressing changed to RIJ central line.
--- NOTE | 2021-06-22 16:30 | NUR ---
SBT terminated due to pt inability to keep SpO2 about 90% despite increasing PEEP and FiO2. Inconsistent tidal volumes and RR 30. Propofol increased to 60 mcg/kg/min. Vent settings changed to ACVC 16/500/16/60% to achieve and maintain SpO2 90% or greater. Pt's daughter at bedside.
--- NOTE | 2021-06-22 17:09 | NUR ---
Case conferenced with ICU staff and CM from [facility]. Pt lives on same property as franki and has good family support per [email or web address]. Advanced care planning needs to be addressed for pt with pneumonia and resp failure. Per enrollment specialist & ICU staff, he is sl improved today. Will attempt to visit and contact family as staffing allows.
--- NOTE | 2021-06-22 18:35 | NUR ---
SUMMARY Neuro: At this time, pt is responsive to verbal stimulus. Cough and gag present. Moves all extremities. Propofol 60 mcg/kg/min. Fentanyl 50 mcg/hr. 3 mm pupils. Allardt sclera. PERRL. Musculoskeletal: Repositioned Q2H, however pt slides down in bed, repositions own hips, and moves legs, especially with lightened sedation. Respiratory: 8.0 cm ETT. 25 cm at teeth. ACVC 16/500/16/60%. SpO2 90% or greater. 4.5 hr SBT performed today with settings 10/10 and 50%. Lungs clear, dim t/o. Small amount of thick, red sputum suctioned from ETT. Cardiac: SR per monitor. BP stable. 2+ radial, pedal, posttibial pulses. Trace edema BLE. Capillary refill less than 3 seconds BUE and BLE. Unremarkable heart sounds. GI: Tube feed and flushes per orders. 0 mL residuals measured this shift. Hypoactive BT. Required rectal tube this shift as pt had 3 large, liquid bowel movements this morning. Patent and draining liquid brown stool. : Suprapubic catheter patent and draining dark, urine. Skin: Excoriated around perianal area. Calazime cream applied and rectal tube placed for protection against incontinence. Psychosocial: Assessment limited due to intubation and sedation. Daughter visited at bedside for 1.5 hours.
--- NOTE | 2021-06-22 20:32 | NUR ---
ASSUMED CARE PATIENT LYING IN BED INTUBATED AND SEDATED, BUT OPENS EYES TO VERBAL STIMULI AND PHYSICAL TOUCH. TURNS HEAD TOWARDS SPEAKER AND MAKES EYE CONTACT. WHEN ASKED IF HE WAS EXPERIENCING PAIN HE DID NOT RESPOND WITH ANY NODDING OF HIS HEAD YES OR NO. CENTRAL LINE DRESSING CHANGED ON DAY SHIFT AND INF PROPOFOL @ 60MCG/KG/MIN, FENTANYL @ 50MCG/HR, HEPARIN @ 19 UNITS/KG/HR AND NS TKO. OGT IN PLACE W/ VITAL AF @ GOAL RATE OF 30ML/HR. SUPRAPUBIC CATHETER TO RT SIDE PATENT AND DRAINING TO GRAVITY W/ DRESSING C/D/I. RECTAL TUBE IN PLACE W/ MAROON LIQUID STOOL IN TUBING, BUT NO STOOL IN THE BAG. VENT SETTINGS AC/VC 16/500/16/60% W/ SPO2 90-91% AND RR 16-20'S; OCCASSIONAL COUGH R/T CPT ON LT SIDE. BEDSIDE REPORT COMPLETED WITH SETH RN.
[2021-06-23 03:26] LABS: BASOPHILS ABSOLUTE AUTO 0.05 K/mm3 (0.00-0.23); BASOPHILS PERCENT AUTO 1 % (0-2); EOSINOPHILS ABSOLUTE AUTO 0.32 K/mm3 (0.00-0.68); EOSINOPHILS PERCENT AUTO 4 % (0-6); Hemoglobin 11.8 g/dL (13.5-17.5); IMMATURE GRAN ABSOLUTE AUTO 0.11 K/mm3 (0.00-0.10); IMMATURE GRAN PERCENT AUTO 1 % (0-1); LYMPHOCYTES ABSOLUTE AUTO 1.69 K/mm3 (0.84-5.20); LYMPHOCYTES PERCENT AUTO 22 % (21-46); MONOCYTES PERCENT AUTO 8 % (4-13); Mean Corpuscular HGB 30.8 pg (26.0-34.0); Mean Corpuscular HGB Conc 32.8 g/dL (31.5-36.5); Mean Corpuscular Volume 94 fL (80-100); Mean Platelet Volume 9.3 fL (9.1-12.4); NEUTROPHILS ABSOLUTE AUTO 4.89 K/mm3 (1.96-9.15); NEUTROPHILS PERCENT AUTO 64 % (41-73); Platelet Count 291 K/mm3 (150-400); RDW Coefficient Variation 13.8 % (11.7-14.2); RDW Standard Deviation 48.1 fL (35.1-46.3); Red Blood Cell Count 3.83 M/mm3 (4.30-5.90); White Blood Cell Count 7.66 K/mm3 (4.00-11.30)
[2021-06-23 03:42] LABS: Albumin, Blood 2.3 g/dL (3.4-5.0); Anion Gap 3 mmol/L (6-16); Blood Urea Nitrogen 16 mg/dL (8-24); Bun/Creatinine Ratio 22.4 (12.0-20.0); CO2, Blood 30 mmol/L (21-32); Calcium, Blood 8.4 mg/dL (8.5-10.1); Chloride, Blood 107 mmol/L (98-108); Creatinine, Blood 0.72 mg/dL (0.60-1.20); Glomerular Filtration Rate >60 (60-); Glucose, Blood 104 mg/dL (70-99); Phosphorus, Blood 4.4 mg/dL (2.5-4.9); Potassium, Blood 3.3 mmol/L (3.5-5.5); Sodium, Blood 140 mmol/L (136-145)
--- NOTE | 2021-06-23 06:46 | NUR ---
SHIFT SUMMARY PATIENT REMAINED INTUBATED AND SEDATED. HEPARIN GTT TITRATED UP TO 20UNITS/KG/HR. TF RESIDUALS INCREASED TOWARDS END OF SHIFT FROM NONE TO 25ML; RECTAL TUBE STILL PATENT AND DRAINING. NO SECRETIONS SUCTIONED FROM ETT. LUNG SOUNDS CLEAR T/O. PATIENTS DAUGHTER, SUMMER, CALLED AT BEGINNING AND END OF SHIFT AND UPDATES WERE GIVEN.
--- NOTE | 2021-06-23 07:55 | NUR ---
ASSUMED PT CARE THIS AM. PT INTUBATED AND SEDATED. PROP AT 55MCG/KG/HR, FENT AT 50MCG/HR, HEPARIN AT 20UNITS/HR, KCL BEING REPLACED. RASS -3. TITRATING PROP DOWN TO ACHIEVE RASS 0. VENT SETTINGS AC VC 16, 500, 16, 50%; PT SATS 93% AND GREATER. LUNGS CLEAR/DIM IN BASES. OGT PLACEMENT CONFIRMED WITH AIR AUSCULTATION, TF VITAL AF AT GOAL. SUPRAPUBIC CATH INTACT AND PATENT DRAINING TEA COLORED URINE WITH SEDIMENT. RECTAL TUBE IN PLACE WITH LIQUID STOOL IN TUBING. LAXATIVES HELD THIS AM.
--- NOTE | 2021-06-23 10:35 | NUR ---
MD SALDAÑA CALLED FOR TRACH CONSULT, ANTICIPATING TRACH EARLY NEXT WEEK IF NEEDED. PTS DTR SUMMER CALLED AND UPDATED. RN REQUESTED MD TO GIVE DTR UPDATE REGARDING TRACH WHEN DTR PRESENT TODAY FOR VISITING HOURS.
--- NOTE | 2021-06-23 16:50 | NUR ---
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 NEW ORDERS OBTAINED. CALLED PT'S DTR SUMMER AND UPDATED THAT PT DOING WELL ON SBT.
--- NOTE | 2021-06-23 18:26 | NUR ---
SHIFT SUMMARY ACHIEVED RASS O ON PROP OF 40MCG/KG/HR, PT ABLE TO FOLLOW COMMANDS, RAMOS. PT STARTED ON ZYPREXA TODAY SECONDARY TO AGITATION ON PREVIOUS SHIFTS. SBT THIS AM UNTIL END OF SHIFT, PRESSURE SUPPORT OF 12, FI02 50%, PEEP 16. PT TOLERATED WITHOUT ISSUE. MD SALDAÑA CONSULTED, PLAN TO DISCUSS TRACH THIS WEEKEND AND PERFORM EARLY NEXT WEEK IF STILL INDICATED. HEP GTT ADJUSTED TO 21UNIT, REPEAT PTT DRAWN AT 1800. PT HAD CLOSE TO 3 L OUT UO VIA SUPRAPUBIC CATH. RECTAL TUBE IN PLACE WITH LIQUID BM. PT REPOSITIONED Q 2. DTR UPDATED.
--- NOTE | 2021-06-23 19:50 | NUR ---
ASSUMPTION OF CARE PT REMAINS INTUBATED, PT CURRENTLY ON SPONT SINCE THIS AM. VENT SETTINGS PEEP 16 AND FIO2 50%. PT RECEIVING PROPOFOL 40MCG/KG/MIN, HEPARIN 22UNITS/KG/HR. TUBE FEEDING INFUSING VIA OGT AT GOAL RATE. SUPRAPUBIC CATH REMAINS IN PLACE, DRESSING C/D/I. URINE IS DARK BROWN/RED. RECTAL TUBE REMAINS IN PLACE. SEE SHIFT ASSESSMENT.
[2021-06-24 04:10] LABS: BASOPHILS ABSOLUTE AUTO 0.04 K/mm3 (0.00-0.23); BASOPHILS PERCENT AUTO 1 % (0-2); EOSINOPHILS ABSOLUTE AUTO 0.37 K/mm3 (0.00-0.68); EOSINOPHILS PERCENT AUTO 5 % (0-6); Hematocrit 35.5 % (37.0-53.0); Hemoglobin 11.2 g/dL (13.5-17.5); IMMATURE GRAN ABSOLUTE AUTO 0.08 K/mm3 (0.00-0.10); IMMATURE GRAN PERCENT AUTO 1 % (0-1); LYMPHOCYTES ABSOLUTE AUTO 1.95 K/mm3 (0.84-5.20); LYMPHOCYTES PERCENT AUTO 27 % (21-46); MONOCYTES ABSOLUTE AUTO 0.62 K/mm3 (0.16-1.47); MONOCYTES PERCENT AUTO 9 % (4-13); Mean Corpuscular HGB 30.1 pg (26.0-34.0); Mean Corpuscular HGB Conc 31.5 g/dL (31.5-36.5); Mean Corpuscular Volume 95 fL (80-100); Mean Platelet Volume 9.4 fL (9.1-12.4); NEUTROPHILS ABSOLUTE AUTO 4.24 K/mm3 (1.96-9.15); NEUTROPHILS PERCENT AUTO 58 % (41-73); Platelet Count 311 K/mm3 (150-400); RDW Coefficient Variation 13.9 % (11.7-14.2); RDW Standard Deviation 48.9 fL (35.1-46.3); Red Blood Cell Count 3.72 M/mm3 (4.30-5.90)
[2021-06-24 04:29] LABS: Albumin, Blood 2.2 g/dL (3.4-5.0); Anion Gap 4 mmol/L (6-16); Blood Urea Nitrogen 13 mg/dL (8-24); Bun/Creatinine Ratio 19.3 (12.0-20.0); CO2, Blood 28 mmol/L (21-32); Calcium, Blood 8.4 mg/dL (8.5-10.1); Chloride, Blood 107 mmol/L (98-108); Creatinine, Blood 0.67 mg/dL (0.60-1.20); Glomerular Filtration Rate >60 (60-); Glucose, Blood 107 mg/dL (70-99); Phosphorus, Blood 5.1 mg/dL (2.5-4.9); Potassium, Blood 3.7 mmol/L (3.5-5.5); Sodium, Blood 139 mmol/L (136-145)
--- NOTE | 2021-06-24 05:47 | NUR ---
SHIFT SUMMARY PT REMAINS INTUBATED AND ON SPONTANEOUS SINCE YESTERDAY AM. VENT SETTINGS PEEP 16 AND FIO2 50%. PT RECEIVING PROPOFOL 40MCG/KG/MIN, FENTANYL 50MCG/HR, NS TKO, AND HEPARIN 24UNITS/KG/HR. PT WAKENS SPONTANEOUSLY AND INTERMITTENTLY FOLLOWS COMMANDS. PT WILL NOD HEAD YES/NO TO ANSWER QUESTIONS AND TRACKS MOVEMENTS. TUBE FEEDING INFUSING AT GOAL RATE WITH ZERO RESIDUALS FOR MOST OF SHIFT. BOWEL TONES ARE ACTIVE. RECTAL TUBE REMAINS IN PLACE DRAINING TO GRAVITY, 50ML OUTPUT THIS SHIFT. SUPRAPUBIC CATH REMAINS IN PLACE, DRESSING C/D/I. URINE IS CLOUDY DARK RED/BROWN WITH SEDIMENT, URINE OUTPUT OF 1450ML. WILL REPORT TO ONCOMING RN.
--- NOTE | 2021-06-24 11:29 | NUR ---
VENT CHANGE PT WITHOUT ANY CHANGES TO SEDATION THIS SHIFT. PT VENT ALARMING APNEA. PT WITHOUT ANY SPONTANEOUS BREATHS. RT NOTIFIED, PT SWITCHED BACK TO AC 16, TV 500, PEEP 16, FIO2 50%. WILL CONTINUE TO MONITOR.
--- NOTE | 2021-06-24 17:37 | NUR ---
SHIFT SUMMARY NO ACUTE CHANGES THIS SHIFT. PT REMAINS INTUBATED AND SEDATED. PT MINIMALLY SEDATED AT THIS TIME WITH PROPOFOL AT 20 MCG/KG/MIN AND FENTANYL AT 50 MCG/HR. PT WITH EYES OPEN, TRACKING, AND FOLLOWING SIMPLE COMMANDS. PT NODS HEAD YES/NO. PT RESTLESS AT TIMES. VENT SETTINGS BACK TO PRESSURE SUPPORT THIS AFTERNOON OF 08/18, FIO2 50%. PT WITH MINIMAL LEAL OUTPUT WITH ETT SUCTION. CENTRAL LINE TO RIJ REMAINS C/D/I. HEPARIN INFUSING AT 23.5 UNITS/KG/HR PER PHARMACY AND NS TKO. OGT IN PLACE WITH TF INFUSING AT GOAL RATE. SUPRAPUBIC CATH REMAINS C/D/I WITH RUST/PINK OUTPUT NOTED. RECTAL TUBE REMAINS IN PLACE WITH MINIMAL NEW OUTPUT NOTED. SBW RESTRAINTS IN PLACE. VITAL SIGNS HAVE REMAINED STABLE. WILL CONTINUE TO MONITOR AND REPORT OFF TO ONCOMING RN.
--- NOTE | 2021-06-24 20:00 | NUR ---
RCVD REPORT FROM AM RN. PT REMAINS INTUBATED AND LIGHTLY SEDATED; FOLLOWS SIMPLE COMMANDS; RAMOS. VENT SETTINGS: SPONT/ 12/16/ 50%. 8.0 ETT 26 AT LIP LINE. MINIMAL SECRETIONS SUCTIONED FROM ETT. PROPOFOL @30MCG, FENT @50MCG, HEPARIN @23.5 UNITS/KG/HR; INFUSING VIA CVC IN R IJ. SUPRAPUBIC CATHETER AND RECTAL TUBE TO GRAVITY DRAINAGE. BROWN SEDIMENT NOTED IN URINE. SEE [employer] FOR DETAILED ASSESSMENT.
[2021-06-25 05:15] LABS: BASOPHILS ABSOLUTE AUTO 0.06 K/mm3 (0.00-0.23); BASOPHILS PERCENT AUTO 1 % (0-2); EOSINOPHILS ABSOLUTE AUTO 0.35 K/mm3 (0.00-0.68); EOSINOPHILS PERCENT AUTO 5 % (0-6); Hematocrit 34.9 % (37.0-53.0); Hemoglobin 11.2 g/dL (13.5-17.5); IMMATURE GRAN ABSOLUTE AUTO 0.08 K/mm3 (0.00-0.10); IMMATURE GRAN PERCENT AUTO 1 % (0-1); LYMPHOCYTES ABSOLUTE AUTO 1.92 K/mm3 (0.84-5.20); LYMPHOCYTES PERCENT AUTO 27 % (21-46); MONOCYTES ABSOLUTE AUTO 0.61 K/mm3 (0.16-1.47); MONOCYTES PERCENT AUTO 9 % (4-13); Mean Corpuscular HGB 30.4 pg (26.0-34.0); Mean Corpuscular HGB Conc 32.1 g/dL (31.5-36.5); Mean Corpuscular Volume 95 fL (80-100); Mean Platelet Volume 9.2 fL (9.1-12.4); NEUTROPHILS ABSOLUTE AUTO 4.17 K/mm3 (1.96-9.15); NEUTROPHILS PERCENT AUTO 58 % (41-73); Platelet Count 343 K/mm3 (150-400); RDW Coefficient Variation 13.9 % (11.7-14.2); RDW Standard Deviation 48.1 fL (35.1-46.3); Red Blood Cell Count 3.69 M/mm3 (4.30-5.90); White Blood Cell Count 7.19 K/mm3 (4.00-11.30)
[2021-06-25 05:42] LABS: Albumin, Blood 2.4 g/dL (3.4-5.0); Anion Gap 2 mmol/L (6-16); Blood Urea Nitrogen 11 mg/dL (8-24); Bun/Creatinine Ratio 15.6 (12.0-20.0); CO2, Blood 29 mmol/L (21-32); Calcium, Blood 8.9 mg/dL (8.5-10.1); Chloride, Blood 107 mmol/L (98-108); Glomerular Filtration Rate >60 (60-); Glucose, Blood 106 mg/dL (70-99); Phosphorus, Blood 4.8 mg/dL (2.5-4.9); Potassium, Blood 3.9 mmol/L (3.5-5.5); Sodium, Blood 138 mmol/L (136-145)
--- NOTE | 2021-06-25 06:21 | NUR ---
SHIFT SUMMARY FIO2 TITRATED FROM 50% TO 60% D/T SPO2 <90% PROPOFOL TITRATED UP FROM 20MCG TO 30MCG D/T RESTLESNESS TMAX 101.3, PRN TYLENOL ADMINISTERED.
--- NOTE | 2021-06-25 09:44 | NUR ---
0800 Pt recieved on bed intubated and lightly sedated. Assessment completed. Pt is able to move all extremities and follow simple commands. Suprapubic cather present draining adequate output. Flexiseal also noted draining minimal output. Pt receiving Vital @ 25ml/hr through OG Tube' pt tolerating well. Pt has R IJ infusing Propofol, Fentanly, and Heparin. Dr. Mims seen and assessed pt. No order recieved. Pt suctioned, repositioned and oral care provided. Pt afebrile, VSS and in no acute distress. Will monitor pt closely.
--- NOTE | 2021-06-25 17:26 | NUR ---
Dr. Rich seen and assessed pt; no orders recieved. Pt repositioned and meds given. Family updated on status of pt. Pt afebrile, VSS and in no acute distress. Will monitor pt until remainder of shift.
[2021-06-26 03:53] LABS: BASOPHILS ABSOLUTE AUTO 0.06 K/mm3 (0.00-0.23); BASOPHILS PERCENT AUTO 1 % (0-2); EOSINOPHILS PERCENT AUTO 4 % (0-6); Hematocrit 32.8 % (37.0-53.0); Hemoglobin 10.4 g/dL (13.5-17.5); IMMATURE GRAN ABSOLUTE AUTO 0.07 K/mm3 (0.00-0.10); IMMATURE GRAN PERCENT AUTO 1 % (0-1); LYMPHOCYTES ABSOLUTE AUTO 2.03 K/mm3 (0.84-5.20); LYMPHOCYTES PERCENT AUTO 24 % (21-46); MONOCYTES PERCENT AUTO 9 % (4-13); Mean Corpuscular HGB Conc 31.7 g/dL (31.5-36.5); Mean Corpuscular Volume 95 fL (80-100); Mean Platelet Volume 9.3 fL (9.1-12.4); NEUTROPHILS ABSOLUTE AUTO 5.25 K/mm3 (1.96-9.15); NEUTROPHILS PERCENT AUTO 62 % (41-73); Platelet Count 331 K/mm3 (150-400); RDW Coefficient Variation 13.8 % (11.7-14.2); RDW Standard Deviation 47.2 fL (35.1-46.3); Red Blood Cell Count 3.47 M/mm3 (4.30-5.90); White Blood Cell Count 8.51 K/mm3 (4.00-11.30)
[2021-06-26 04:08] LABS: International Normalized Ratio 1.06; Prothrombin Time Results 11.1 Sec (9.7-11.5)
[2021-06-26 04:18] LABS: Alanine Aminotransfer (ALT/SGP 21 U/L (12-78); Albumin, Blood 2.4 g/dL (3.4-5.0); Albumin/Globulin Ratio 0.6 (0.8-1.8); Alk Phos 61 U/L (50-136); Anion Gap 6 mmol/L (6-16); Bilirubin, Direct 0.1 mg/dL (0.0-0.3); Bilirubin, Indirect 0.2 mg/dL (0.1-0.7); Bilirubin, Total 0.3 mg/dL (0.1-1.0); Blood Urea Nitrogen 13 mg/dL (8-24); Bun/Creatinine Ratio 11.9 (12.0-20.0); CO2, Blood 26 mmol/L (21-32); Calcium, Blood 8.7 mg/dL (8.5-10.1); Chloride, Blood 106 mmol/L (98-108); Creatinine, Blood 1.09 mg/dL (0.60-1.20); Globulin, Blood 4.2 g/dL (2.2-4.0); Glomerular Filtration Rate >60 (60-); Glucose, Blood 100 mg/dL (70-99); Phosphorus, Blood 5.2 mg/dL (2.5-4.9); Potassium, Blood 4.2 mmol/L (3.5-5.5); Sodium, Blood 138 mmol/L (136-145); Total Protein, Blood 6.6 g/dL (6.4-8.2)
[2021-06-26 04:22] LABS: Aspartate Aminotrans (AST/SGOT 19 U/L (12-37)
--- NOTE | 2021-06-26 18:57 | NUR ---
0800 Pt Awake, able to move all extremities and tracks with eyes. Pt is lightly sedated and intubated. [address] Mims seen and assesssed pt. Orders recieved. 1500 Family @ bedside updated on status of pt. Pt reposition and Flexiseal removed; pt tolerated well. Pt afebrile, VSS and in no acute distress. Will monitor pt until remainder of shift.
--- NOTE | 2021-06-26 19:30 | NUR ---
ASSESSMENT/ASSUMED CARE PT AWAKE LYING IN BED WATCHING TV. ANSWERING YES/NO QUESTIONS AND FOLLOWING INSTRUCTIONS. DENIES PAIN. LUNGS CLEAR BUT DECREASED ON VENT SPONT 12/10 FIO2 45%. HEART RATE REGULAR. BP STABLE. BT+ HYPOACTIVE ON TUBE FEED VIA OG TUBE. VITAL AF AT GOAL RATE 30 ML/HR, WATER 30 ML Q4HR. RESIDUAL ZERO. CENTRAL LINE TO RIGHT IJ DRSG INTACT, SITE CLEAR. PROPOFOL AT 15 MCQ/KG/MIN, FENTANYL 50 MCQ/HR AND HEPARIN AT 23.5 UNITS/KG/HR 44.7 ML/HR. HEPARIN TO BE STOPPED AT MIDNIGHT ALONG WITH TUBE FEED FOR POSSIBLE TRACH PLACEMENT IN AM. SUPRAPUBIC CATH DRSG INTACT, DRAINING CLOUDY YELLOW URINE. ORAL AND REPOSITIONING DONE. COCCYX DRSG FREEDOM&I. BILAT SOFT WRIST RESTRAINTS ON.
--- NOTE | 2021-06-27 | NUR ---
REASSESSMENT PT REPOSITIONED AND ORAL CARE DONE. HEPARIN AND TUBE FEED STOPPED. FLUSHED OG THAN CLAMPED. BILAT RESTRAINTS ON.
[2021-06-27 03:31] LABS: BASOPHILS ABSOLUTE AUTO 0.05 K/mm3 (0.00-0.23); BASOPHILS PERCENT AUTO 1 % (0-2); EOSINOPHILS ABSOLUTE AUTO 0.12 K/mm3 (0.00-0.68); EOSINOPHILS PERCENT AUTO 1 % (0-6); Hematocrit 31.5 % (37.0-53.0); Hemoglobin 10.3 g/dL (13.5-17.5); IMMATURE GRAN ABSOLUTE AUTO 0.05 K/mm3 (0.00-0.10); IMMATURE GRAN PERCENT AUTO 1 % (0-1); LYMPHOCYTES ABSOLUTE AUTO 1.65 K/mm3 (0.84-5.20); LYMPHOCYTES PERCENT AUTO 17 % (21-46); MONOCYTES ABSOLUTE AUTO 0.88 K/mm3 (0.16-1.47); MONOCYTES PERCENT AUTO 9 % (4-13); Mean Corpuscular HGB 30.4 pg (26.0-34.0); Mean Corpuscular HGB Conc 32.7 g/dL (31.5-36.5); Mean Corpuscular Volume 93 fL (80-100); Mean Platelet Volume 9.2 fL (9.1-12.4); NEUTROPHILS ABSOLUTE AUTO 6.96 K/mm3 (1.96-9.15); NEUTROPHILS PERCENT AUTO 72 % (41-73); Platelet Count 358 K/mm3 (150-400); RDW Coefficient Variation 13.8 % (11.7-14.2); RDW Standard Deviation 46.8 fL (35.1-46.3); Red Blood Cell Count 3.39 M/mm3 (4.30-5.90); White Blood Cell Count 9.71 K/mm3 (4.00-11.30)
--- NOTE | 2021-06-27 04:00 | NUR ---
REASSESSMENT TEMP 102.1, MED WITH TYLENOL. TEMP IN ROOM DECREASED, COOL WASH CLOTH TO FOREHEAD, FAN ON, AND ICE BEHIND NECK, UNDERARMS AND TO GROIN. BLANKETS REMOVED. REPOSITIONED AND ORAL CARE DONE.
[2021-06-27 04:01] LABS: Albumin, Blood 2.4 g/dL (3.4-5.0); Anion Gap 5 mmol/L (6-16); Blood Urea Nitrogen 13 mg/dL (8-24); Bun/Creatinine Ratio 16.3 (12.0-20.0); CO2, Blood 26 mmol/L (21-32); Calcium, Blood 8.7 mg/dL (8.5-10.1); Chloride, Blood 105 mmol/L (98-108); Glomerular Filtration Rate >60 (60-); Glucose, Blood 110 mg/dL (70-99); Phosphorus, Blood 4.2 mg/dL (2.5-4.9); Potassium, Blood 4.3 mmol/L (3.5-5.5); Sodium, Blood 136 mmol/L (136-145)
--- NOTE | 2021-06-27 04:51 | NUR ---
CALL TO MD DR ARAIZA NOTIFIED REGARDING TEMP 102.1, SEE NEW ORDERS
--- NOTE | 2021-06-27 06:10 | NUR ---
SHIFT SUMMARY PT CONT INTUBATED AND MECH VENT ON SPONT SETTING 12/ FIO2 45%. LUNGS CLEAR BUT DECREASED. FEVER DURING THE NIGHT UP TO 102.1. MED WITH TYLENOL, ICE APPLIED, AND CALL TO MD. BLOOD CULTURES OBTAINED. PT STARTED ON ROCEPHIN. HEART RATE REGULAR. BP STABLE. TUBE FEED AND HEPARIN GTT STOPPED AT MIDNIGHT FOR POSSIBLE TRACH THIS AM. CENTRAL LINE TO RIGHT IJ DRSG INTACT. PT TURNED SIDE TO SIDE DURING THE NIGHT TO KEEP OFF COCCYX. REPORT TO ON COMING NURSE
--- NOTE | 2021-06-27 14:45 | NUR ---
Update 06/27/21: Per quan review, patient's condition is improving. Dr. Arredondo noting that they will be holding off on the trach at this time. Possibility that pt. will be appropriate for extubation within the next 48 hours. Contacted to patient's daughter Layla to ensure she that the family has been updated today. Layla stated that she is here at [facility] and Dr. Arredondo had met with her to provide updates. Plan to continue to follow patient's care and assist with discharge planning as needed. Disposition unknown at this time.
--- NOTE | 2021-06-27 18:42 | NUR ---
0800 Pt recieved on bed intubated and lightly sedated reactive to tactile stimuli. Pt assessment completed. Pt able to track with eyes, follow simple commands and move all extremities. Pt febrile, ice pack placed, Dr. Arredondo notified. 1200 Dr. Arredondo seen and assessed pt. Orders recieved; Pt Fentanly weaned off, propofol also wean off. Heparin and Tube feeding restarted; pt tolerating well. 1400 [place] Physician seen and assessed pt; no orders recieved. 1600 Family at bedside updated on plan of care and status of pt. 1800 Pericare done, labs collecte and pt reposition. Will monitor pt unti remainder of shift.
--- NOTE | 2021-06-28 01:06 | NUR ---
ASSUMED CARE @1900 PATIENT IS ALERT AND ABLE TO FOLLOW COMMANDS, BECOMES AGITATED WITH TOO MUCH STIMULI. PATIENT NODS YES/NO TO QUESTIONS. PATIENT ON THE VENT PS 10 FI02 45% AND PEEP 6, 02 SATS 93%. TUBE FEED AT GOAL RATE, VITAL AF. MINIMAL TO NO RISIDUALS. SUPRA PUBIC CATHETER DRAINING CLEAR YELLOW URINE WITH SEDIMENT. PATIENT USED BEDPAN AND HAD BOWEL MOVEMENT. REPOSITIONED Q2 HOURS. BILATERAL WRIST RESTRAINTS IN PLACE, PATIENT OCCASIONALLY ATTEMPTS TO PULL AT LINES AND TUBES. MEDICATED FOR PAIN PER EMAR.
[2021-06-28 02:15] LABS: BASOPHILS ABSOLUTE AUTO 0.07 K/mm3 (0.00-0.23); BASOPHILS PERCENT AUTO 1 % (0-2); EOSINOPHILS ABSOLUTE AUTO 0.17 K/mm3 (0.00-0.68); EOSINOPHILS PERCENT AUTO 1 % (0-6); Hematocrit 31.2 % (37.0-53.0); Hemoglobin 10.5 g/dL (13.5-17.5); IMMATURE GRAN ABSOLUTE AUTO 0.06 K/mm3 (0.00-0.10); IMMATURE GRAN PERCENT AUTO 1 % (0-1); LYMPHOCYTES PERCENT AUTO 16 % (21-46); MONOCYTES ABSOLUTE AUTO 1.23 K/mm3 (0.16-1.47); MONOCYTES PERCENT AUTO 10 % (4-13); Mean Corpuscular HGB 30.8 pg (26.0-34.0); Mean Corpuscular HGB Conc 33.7 g/dL (31.5-36.5); Mean Corpuscular Volume 92 fL (80-100); Mean Platelet Volume 9.2 fL (9.1-12.4); NEUTROPHILS ABSOLUTE AUTO 8.38 K/mm3 (1.96-9.15); NEUTROPHILS PERCENT AUTO 71 % (41-73); Platelet Count 374 K/mm3 (150-400); RDW Coefficient Variation 13.5 % (11.7-14.2); RDW Standard Deviation 45.3 fL (35.1-46.3); Red Blood Cell Count 3.41 M/mm3 (4.30-5.90); White Blood Cell Count 11.81 K/mm3 (4.00-11.30)
[2021-06-28 02:29] LABS: Albumin, Blood 2.4 g/dL (3.4-5.0); Anion Gap 5 mmol/L (6-16); Blood Urea Nitrogen 16 mg/dL (8-24); CO2, Blood 31 mmol/L (21-32); Calcium, Blood 9.2 mg/dL (8.5-10.1); Chloride, Blood 101 mmol/L (98-108); Glomerular Filtration Rate >60 (60-); Glucose, Blood 128 mg/dL (70-99); Phosphorus, Blood 3.7 mg/dL (2.5-4.9); Potassium, Blood 3.9 mmol/L (3.5-5.5); Sodium, Blood 137 mmol/L (136-145)
--- NOTE | 2021-06-28 04:52 | NUR ---
SHIFT SUMMARY PATIENT IS ALERT AND ABLE TO FOLLOW COMMANDS, ATTEMPTED WRITING AND PICTURE BOARD BUT PATIENT UNABLE TO COMMUNICATE WITH EITHER. BECOMES AGITATED WITH SMALL AMOUNT OF STIMULI. PATIENT ON VENT WITH PS 10, F102 45%, PEEP 6 MOST THE NIGHT, DR. REYNA IN THIS AM AND PATIENT CURRENTLY ON PS 5, FI02 50%, PEEP 5. 02 SATS 93%. BP STABLE. CATHETER DRAINING. HEPARIN INF. TUBE FEED REMAINS AT GOAL RATE.
--- NOTE | 2021-06-28 10:09 | NUR ---
pt extubated to 6l n/c for a sat of 94%. l/s decreased t/o
--- NOTE | 2021-06-28 19:13 | NUR ---
0800 Pt recieved on bed intubated to vent, able to follow simple commands. Pt assessment done. Pt able to move all extremities. Suprapubic catheter noted draining adequate output. 1100 Dr. Arredondo seen and assessed pt. Orders recieved. Pt Extubated @ 1003 to NC @ 6L. Pt tolerated well. Pt AAOX@ but is confused; frequent reorientation needeed. Family notified. 1600 Partial bed bath done, pt had mutiple BMs, pericare completed. Pt reposition and labs collect. Pt afebrile, VSS and in acute distress. 1900 Report given to trever, RN.
--- NOTE | 2021-06-28 20:17 | NUR ---
REPORT RECEIEVED FROM DAY SHIFT RN. PT RECEIVED IN BED, ALERT TO SELF. PT FOLLOWS COMMANDS. PT IS CONFUSED TO PLACE AND TIME AND HAS HALLUCINATIONS.PT IS NOW EXTUBATED AND ON NC 5L. SUPRAPUBIC CATHETER IN PLACE AND DRAINING YELLOW URINE. PT IS RESTING WITH NO DISTRESS. WILL CONTINUE TO [facility]. SEE SHIFT ASSESSMENT.
--- NOTE | 2021-06-28 21:53 | NUR ---
PT'S DAUGHTER SUMMER CALLED, UPDATE PROVIDED. ALL QUESTIONS ANSWERED.
--- NOTE | 2021-06-28 23:34 | NUR ---
PT HALLUCINATIONS INCREASED, STATES HE SEES "A YOUNG GIRL WALKING IN HIS ROOM". PT UNABLE TO SLEEP. PT RE-ORIENTED AND ENSURED PT THAT HE IS SAFE. DR. BOCANEGRA CALLED TO NOTIFY HIM ABOUT PATIENT'S BEHAVIOR. ORDER RECIEVED.
[2021-06-29 03:47] LABS: BASOPHILS ABSOLUTE AUTO 0.08 K/mm3 (0.00-0.23); BASOPHILS PERCENT AUTO 1 % (0-2); EOSINOPHILS ABSOLUTE AUTO 0.38 K/mm3 (0.00-0.68); EOSINOPHILS PERCENT AUTO 4 % (0-6); Hematocrit 33.1 % (37.0-53.0); Hemoglobin 10.8 g/dL (13.5-17.5); IMMATURE GRAN ABSOLUTE AUTO 0.06 K/mm3 (0.00-0.10); IMMATURE GRAN PERCENT AUTO 1 % (0-1); LYMPHOCYTES ABSOLUTE AUTO 2.21 K/mm3 (0.84-5.20); LYMPHOCYTES PERCENT AUTO 21 % (21-46); MONOCYTES ABSOLUTE AUTO 1.16 K/mm3 (0.16-1.47); MONOCYTES PERCENT AUTO 11 % (4-13); Mean Corpuscular HGB 30.4 pg (26.0-34.0); Mean Corpuscular HGB Conc 32.6 g/dL (31.5-36.5); Mean Corpuscular Volume 93 fL (80-100); Mean Platelet Volume 9.2 fL (9.1-12.4); NEUTROPHILS ABSOLUTE AUTO 6.67 K/mm3 (1.96-9.15); NEUTROPHILS PERCENT AUTO 63 % (41-73); Platelet Count 463 K/mm3 (150-400); RDW Standard Deviation 44.9 fL (35.1-46.3); Red Blood Cell Count 3.55 M/mm3 (4.30-5.90); White Blood Cell Count 10.56 K/mm3 (4.00-11.30)
[2021-06-29 04:02] LABS: Anion Gap 6 mmol/L (6-16); Blood Urea Nitrogen 16 mg/dL (8-24); Bun/Creatinine Ratio 18.1 (12.0-20.0); CO2, Blood 30 mmol/L (21-32); Calcium, Blood 9.3 mg/dL (8.5-10.1); Chloride, Blood 103 mmol/L (98-108); Creatinine, Blood 0.89 mg/dL (0.60-1.20); Glomerular Filtration Rate >60 (60-); Glucose, Blood 95 mg/dL (70-99); Potassium, Blood 3.8 mmol/L (3.5-5.5); Sodium, Blood 139 mmol/L (136-145)
--- NOTE | 2021-06-29 06:15 | NUR ---
SHIFT SUMMARY NO ACUTE EVENTS OVERNIGHT. PT ALERT AND AWAKE, ORIENTED TO SELF AND MONTH BUT DISORIENTED TO DATE AND PLACE. PT HAS HAD HALLUCINATIONS, REPORTS SEEING PEOPLE IN HIS ROOM. PT HAS BEEN RE-ORIENTED. PT IS ON NC @4L. SBP BETWEEN 120S-150S. PT NPO PENDING SWALLOW EVALUATION. SUPRAPUBIC CATH IN PLACE, DRAINING MARIELLA URINE. 750ML OF URINE DRAINED. PT HAD 1 LARGE BM DURING T HSI SHIFT. LEFT ARM PICC IN PLACE. HEPARIN GTT INFUSING AT 23UNITS/KG. NEXT PTT DUE AT 0700. NO ACUTE DISTRESS NOTED. REPORT TO BE GIVEN TO DAY SHIFT RN.
--- NOTE | 2021-06-29 17:19 | NUR ---
AOx1/2 disoriented to event/time and sometimes place, continues with visual hallucinations reported/witnessed, zyprexa 10mg one time given, clear lungs, denies SOB, 4l NC continued, will drop to 85 when Pt removes NC, ST 100/110s, BP HTN although <160 SBP, heparin rate adjusted to 25 units/kg/hr, new complaints L thihg pain, some swelling/warmth assessed, duplex negative for PE, femur xray pending, audible bowels obese abdomen non-tender, suprapubic catheter adequate concentrated tea colored urine, awaiting urology consult for discontinuation of catheter, kristine ochoa cleared Pt for PO.
--- NOTE | 2021-06-29 19:39 | NUR ---
ASSUMPTION OF CARE REPORT RECEIVED FROM DAY SHIFT RN. PT ALERT TO SELF, CONFUSED TO TIME AND PLACE. PT CONTINUES TO HAVE HALLUCINATIONS, MUMBLING WORDS INCOHRENTLY, DOES FOLLOW COMMANDS, NEEDS FREQUENT RE-ORIENTING. PT REMAINS IN ST, NORMOTENSIVE TO HYPERTENSIVE. SUPRAPUBIC CATHETER IN PLACE, DRAINING MARIELLA URINE. PT HAS PAIN IN LEFT THIGH AND LEG UPON PALPATION, PT NOTED TO HAVE REDNESS TO AREA. VENOUS ULTRASOUND NEGATIVE FOR DVT AND LEFT FEMUR XRAY NEGATIVE. WILL CONTINUE TO MONITOR. NO ACUTE DISTRESS NOTED.
--- NOTE | 2021-06-29 21:23 | NUR ---
PT ATTEMPTED TO PULL LINE AND CATHTETER, PT CONFUSED, DISORIENTED, PT ORIENTED BY RN. DR MILLER NOTIFIED OF PT'S BEHAVIOR, ORDER RECEIVED. WILL CONTINUE TO MONITOR.
--- NOTE | 2021-06-29 23:34 | NUR ---
PT HAD A BOWEL MOVEMENT, UPON RN AND PCT TRYING TO CLEAN PT UP. STARTED GETTING AGITATED, SWINGING FIST AT RN. PT ATTEMPTED TO RE-ORIENT PT, DID NOT HELP. SOFT BILATERAL WRIST APPLIED TO PT. WILL CONTINUE TO MONITOR.
--- NOTE | 2021-06-30 04:36 | NUR ---
DAUGHTER PALMER CALLED, UPDATE PROVIDED, AWARE OF RESTRAINTS. ALL QUESTIONS ANSWERED.
[2021-06-30 04:56] LABS: PCO2 Arterial 59.8 mmHg (35-45); PO2 Arterial 76.3 mmHg (80-100); pH Blood Arterial 7.31 (7.35-7.45)
[2021-06-30 05:15] LABS: BASOPHILS ABSOLUTE AUTO 0.11 K/mm3 (0.00-0.23); BASOPHILS PERCENT AUTO 1 % (0-2); EOSINOPHILS ABSOLUTE AUTO 0.59 K/mm3 (0.00-0.68); EOSINOPHILS PERCENT AUTO 7 % (0-6); Hematocrit 34.3 % (37.0-53.0); Hemoglobin 10.9 g/dL (13.5-17.5); IMMATURE GRAN ABSOLUTE AUTO 0.11 K/mm3 (0.00-0.10); IMMATURE GRAN PERCENT AUTO 1 % (0-1); LYMPHOCYTES ABSOLUTE AUTO 2.95 K/mm3 (0.84-5.20); LYMPHOCYTES PERCENT AUTO 32 % (21-46); MONOCYTES PERCENT AUTO 11 % (4-13); Mean Corpuscular HGB 29.9 pg (26.0-34.0); Mean Corpuscular HGB Conc 31.8 g/dL (31.5-36.5); Mean Corpuscular Volume 94 fL (80-100); Mean Platelet Volume 8.7 fL (9.1-12.4); NEUTROPHILS ABSOLUTE AUTO 4.37 K/mm3 (1.96-9.15); NEUTROPHILS PERCENT AUTO 48 % (41-73); Platelet Count 499 K/mm3 (150-400); RDW Standard Deviation 45.1 fL (35.1-46.3); Red Blood Cell Count 3.64 M/mm3 (4.30-5.90); White Blood Cell Count 9.13 K/mm3 (4.00-11.30)
[2021-06-30 05:40] LABS: Alanine Aminotransfer (ALT/SGP 30 U/L (12-78); Albumin, Blood 2.4 g/dL (3.4-5.0); Albumin/Globulin Ratio 0.5 (0.8-1.8); Alk Phos 80 U/L (50-136); Anion Gap 6 mmol/L (6-16); Aspartate Aminotrans (AST/SGOT 28 U/L (12-37); Bilirubin, Total 0.5 mg/dL (0.1-1.0); Blood Urea Nitrogen 15 mg/dL (8-24); Bun/Creatinine Ratio 19.4 (12.0-20.0); CO2, Blood 29 mmol/L (21-32); Calcium, Blood 9.4 mg/dL (8.5-10.1); Chloride, Blood 104 mmol/L (98-108); Creatinine, Blood 0.77 mg/dL (0.60-1.20); Globulin, Blood 5.3 g/dL (2.2-4.0); Glomerular Filtration Rate >60 (60-); Glucose, Blood 94 mg/dL (70-99); Potassium, Blood 3.9 mmol/L (3.5-5.5); Sodium, Blood 139 mmol/L (136-145); Total Protein, Blood 7.7 g/dL (6.4-8.2)
--- NOTE | 2021-06-30 06:10 | NUR ---
SHIFT SUMMARY PT REMAINS DISORIENTED. HAS VISUAL HALLUCINATIONS. AROUND 2100 PT STATED HE WANTED TO LEAVE AND BECOME MORE AGRESSIVE, DR MILLER NOTIFIED AND ORDER RECEIVED. PT FOLLOWS COMMANDS. MOVES ALL EXTREMITIES. AROUND 2300 PT BECAME COMBATIVE WHILE MARTHA CARE AND SWUNG FIST AT STAFF. SWB RESTRAINTS APPLIED AND ASSESSSMENT COMPLETED Q 2. PT HAD 3 BMS THIS SHIFT. SUPRAPUBIC CATH IN PLACE AND DRAINING DARK MARIELLA URINE. DAUGHTER SUMMER UPDATED ON PT'S STATUS AND NEED FOR RESTRAINTS. NO ACUTE DISTRESS NOTED. REPORT TO BE GIVEN TO DAY SHIFT RN.
--- NOTE | 2021-06-30 14:55 | NUR ---
AOx1, confused with reported/witnessed hallucinations, restraints DC'd, Pt improvement in mood more calm, Pt needs frequent reorientation, denies P/N/V, +2 pulses, heparin gtt continues at 25 no signs of bleeding, BP 140s, ST 90/100s, denies SOB, lungs clear/dim, 3L NC, desats with NC removal to mid 80s, audible bowels, little appretite only 20 percent of meals eaten, 1 moderate brown loose BM, suprapubic cath CDI adequate output concentrated with sediment, Dtr Summer visit updated on care, report given to Nury ORTIZ and Pt transfered to PCU 10.
--- NOTE | 2021-06-30 15:47 | NUR ---
ARRIVAL TO PCU/CARE ASSUMPTION PATIENT IS ALERT TO SELF AND YEAR, BUT NOT SURRONDINGS OR PRESIDENT OR MONTH OR WHERE HE IS AT. ASH. THIS RN PROVIDED EDUCATION. VSS. SPO2 >90% ON 3.5L NC. TELE. PATIENT REPORTS PAIN TO LEFT UPPER LEG THAT IS A CHRONIC PAIN. DESCRIBES IT TINGLYING SENSATION. THE LEFT THIGH IS TIGHT/FIRM COMPARED TO THE RIGHT THIGH. CLEAR LUNG SOUNDS UPPER LOBES AND DIM IN BASES BILATERALLY. NO SOB. PATIENT HAS GOOD CAP REFILL, STRONG RADIAL PULSES, WEAK/FAINT PEDIS PULSES. ABD IS NON TENDER HYPOACTIVE AND MODERATE DISTENTION. SKIN IS CLEAN DRY AND INTACT, REDDNESS TO BOTTOM THAT IS BLANCHABLE. PATIENT ARRIVED TO PCU AT 1521 FROM ICU & TRANSFERED WITH THE LIFT TO PCU BED. PATIENT ORIENTATED TO ROOM AND CALL LIGHT. PATIENT CALL LIGHT IS WITHIN REACH. PATIENT IS INCONTINENT AND HAS A SUPRAPUBIC CATH IN PLACE DRAINING WITH GRAVITY, MARIELLA CLEAR. WILL CONTINUE TO MONITOR AND PROVIDE CARE.
--- NOTE | 2021-06-30 18:13 | NUR ---
SHIFT SUMMARY PATIENT A/OX2. VSS. TELE SR/ST 100. BED IN LOWEST POSITION AND CALL LIGHT WITHIN REACH. NO ACUTE CHANGES SINCE LAST NOTE. ACOSTA CATH IN PLACE DRAINING WITH GRAVITY, MARIELLA COLORED. WILL CONTINUE TO MONITOR AND PROVIDE CARE UNTIL HAND OFF WITH NEXT SHIFT.
[2021-07-01 04:56] LABS: BASOPHILS ABSOLUTE AUTO 0.15 K/mm3 (0.00-0.23); BASOPHILS PERCENT AUTO 2 % (0-2); EOSINOPHILS ABSOLUTE AUTO 0.59 K/mm3 (0.00-0.68); EOSINOPHILS PERCENT AUTO 6 % (0-6); Hematocrit 34.7 % (37.0-53.0); Hemoglobin 10.8 g/dL (13.5-17.5); IMMATURE GRAN ABSOLUTE AUTO 0.28 K/mm3 (0.00-0.10); IMMATURE GRAN PERCENT AUTO 3 % (0-1); LYMPHOCYTES ABSOLUTE AUTO 3.24 K/mm3 (0.84-5.20); LYMPHOCYTES PERCENT AUTO 32 % (21-46); MONOCYTES ABSOLUTE AUTO 1.16 K/mm3 (0.16-1.47); MONOCYTES PERCENT AUTO 12 % (4-13); Mean Corpuscular HGB 29.8 pg (26.0-34.0); Mean Corpuscular HGB Conc 31.1 g/dL (31.5-36.5); Mean Corpuscular Volume 96 fL (80-100); Mean Platelet Volume 8.8 fL (9.1-12.4); NEUTROPHILS PERCENT AUTO 46 % (41-73); Platelet Count 518 K/mm3 (150-400); Red Blood Cell Count 3.63 M/mm3 (4.30-5.90); White Blood Cell Count 10.02 K/mm3 (4.00-11.30)
[2021-07-01 05:17] LABS: Alanine Aminotransfer (ALT/SGP 35 U/L (12-78); Albumin, Blood 2.5 g/dL (3.4-5.0); Albumin/Globulin Ratio 0.5 (0.8-1.8); Alk Phos 77 U/L (50-136); Anion Gap 2 mmol/L (6-16); Aspartate Aminotrans (AST/SGOT 34 U/L (12-37); Bilirubin, Total 0.4 mg/dL (0.1-1.0); Blood Urea Nitrogen 11 mg/dL (8-24); Bun/Creatinine Ratio 15.4 (12.0-20.0); CO2, Blood 33 mmol/L (21-32); Calcium, Blood 9.4 mg/dL (8.5-10.1); Chloride, Blood 104 mmol/L (98-108); Creatinine, Blood 0.71 mg/dL (0.60-1.20); Globulin, Blood 5.1 g/dL (2.2-4.0); Glomerular Filtration Rate >60 (60-); Glucose, Blood 116 mg/dL (70-99); Potassium, Blood 4.1 mmol/L (3.5-5.5); Sodium, Blood 139 mmol/L (136-145); Total Protein, Blood 7.6 g/dL (6.4-8.2)
--- NOTE | 2021-07-01 06:39 | NUR ---
PT IS ALERT AND ORIENTED X 4, BUT CONTINUES TO HAVE HALLUSINATIONS AND INCOHESIVE/IRRELIVENT CONVERSATION. ATTEMPTING BED EXIT AFTER TURNS. SLEPT FROM [id number]. NON VIOLENT WHEN AWAKE. REQUIRING 4L O2 NC, OCCASIONALLY REMOVING NC, BUT O2 SAT GOES FROM 87% TO 90% WITHIN A FEW MINUTES OF REPLACING NC. SUPRAPUBIC CATHETER WITH MARIELLA OUTPUT. CONTINUE HEPARIN GTT WITH DECREASED RATE 24.5 UNITS/KG/HR FOR aPTT 71.8. LEFT THIGH EDEMA CONTINUES, STRONG PULSES BLE.
--- NOTE | 2021-07-01 19:02 | NUR ---
Patient is alert and oriented x3. Intermittently confused but easily reoriented. Incomprehensible words at times. Able to stand with moderate assistance. 4L NC, daughter Summer came to visit from [phone]. Suprapubic wright catheter in place. BSSR to be given to material handler 2nd shift nurse.
[2021-07-02 03:56] LABS: BASOPHILS PERCENT AUTO 1 % (0-2); EOSINOPHILS ABSOLUTE AUTO 0.54 K/mm3 (0.00-0.68); EOSINOPHILS PERCENT AUTO 7 % (0-6); Hematocrit 32.2 % (37.0-53.0); Hemoglobin 10.3 g/dL (13.5-17.5); IMMATURE GRAN ABSOLUTE AUTO 0.24 K/mm3 (0.00-0.10); IMMATURE GRAN PERCENT AUTO 3 % (0-1); LYMPHOCYTES ABSOLUTE AUTO 2.23 K/mm3 (0.84-5.20); LYMPHOCYTES PERCENT AUTO 27 % (21-46); MONOCYTES ABSOLUTE AUTO 0.85 K/mm3 (0.16-1.47); MONOCYTES PERCENT AUTO 11 % (4-13); Mean Corpuscular HGB 30.3 pg (26.0-34.0); Mean Corpuscular Volume 95 fL (80-100); Mean Platelet Volume 8.7 fL (9.1-12.4); NEUTROPHILS ABSOLUTE AUTO 4.17 K/mm3 (1.96-9.15); NEUTROPHILS PERCENT AUTO 51 % (41-73); Platelet Count 466 K/mm3 (150-400); RDW Coefficient Variation 13.1 % (11.7-14.2); RDW Standard Deviation 45.2 fL (35.1-46.3); White Blood Cell Count 8.13 K/mm3 (4.00-11.30)
[2021-07-02 04:12] LABS: Alanine Aminotransfer (ALT/SGP 33 U/L (12-78); Albumin, Blood 2.5 g/dL (3.4-5.0); Albumin/Globulin Ratio 0.5 (0.8-1.8); Alk Phos 65 U/L (50-136); Anion Gap 1 mmol/L (6-16); Aspartate Aminotrans (AST/SGOT 32 U/L (12-37); Bilirubin, Total 0.5 mg/dL (0.1-1.0); Blood Urea Nitrogen 9 mg/dL (8-24); Bun/Creatinine Ratio 14.2 (12.0-20.0); CO2, Blood 34 mmol/L (21-32); Chloride, Blood 105 mmol/L (98-108); Creatinine, Blood 0.63 mg/dL (0.60-1.20); Globulin, Blood 4.9 g/dL (2.2-4.0); Glomerular Filtration Rate >60 (60-); Glucose, Blood 101 mg/dL (70-99); Potassium, Blood 3.5 mmol/L (3.5-5.5); Sodium, Blood 140 mmol/L (136-145); Total Protein, Blood 7.4 g/dL (6.4-8.2)
--- NOTE | 2021-07-02 05:52 | NUR ---
NO CHANGE THIS SHIFT. PT IS ORIENTED BUT CONTINUES TO PRESENT WITH NONSENCE CONVERSATION. PT IS TALKING TO IV POLE AND PUMP THROUGOUT SHIFT. SLIGHTLY MORE IRRITABLE WHEN REDIRECTED TO PUT LEGS BACK IN BED. HEPARIN GTT REDUCED TO 24 UNITS/KG/HR. NO EVIDECNE OF BLEEDING. CONTINUE TO MONITOR.
--- NOTE | 2021-07-02 18:05 | NUR ---
PATIENT IS ALERT AND ORIENTED X4. TENDS TO TALK ON A TANGENT. INTERMITTENTLY CONFUSED BUT BECOMING EASIER TO REORIENT. DAUGHTER "SUMMER" AT BEDSIDE FROM [phone]. SUPRAPUBIC ACOSTA CATH IN PLACE AND PATENT HANGING BELOW BLADDER. OFF OF HEPARIN GTT AND PLACED ON XARELTO PO @ 1700. TO BE DC'D AFTER WEEKEND. BSSR TO BE GIVEN TO FIELD MERCHANDISER NURSE.
--- NOTE | 2021-07-03 02:58 | NUR ---
PT AGGITATED TONIGHT AT SHIFT CHANGE.UNCOOPERATIVE WITH THIS RNS CARE.PT RECEIVED SEROQUEL PER ORDERS, AND CALMS SOME WITH LIVESTOCK TRADER AT BEDSIDE.COMMENTS APPEAR LIVESTOCK TRADER REMINDS PT OF HIS DAUGHTER.ALTHOUGH,PT NOT ALLOWING LIVESTOCK TRADER OR OTHER FEMALE STAFF TO CHANGE HIS ATTENDS OR CLEAN HIM UP. PT DID ALLOW MALE NURSE TO CHANGE ATTEND AND PROVIDE SKIN CLEANSING.PT ALLOWED 4 OTHER STAFF TO REPOSITION HIM UP IN BED, PT WAS TOSSING LEGS OFF EDGE OF BED.BODY STRAIGHTENER TARA ALSO ASSISTING IN MONITORING THIS PT.PT CONTINUES UNCOOPERATIVE WITH CARE PROVIDED BY THIS RN.CARE OF PT TRANSFERRED TO [facility] DIRECTOR OF LABOR AND DELIVERY.
--- NOTE | 2021-07-03 07:41 | NUR ---
SHIFT SUMMARY ASSUMED CARE OF PT AROUND 0230. HR SR TO ST. BP STABLE. HEAVY SNORING THIS AM, STARTED TO DESAT INTO THE 80'S. BUMPED O2 UP TO 4L NC AND PT MAINTAINS SATS OVER 90%. PT ATTEMPTS TO GET OUT OF BED AT TIMES. EASILY REDIRECTABLE. SUPRAPUBIC ACOSTA IN PLACE DRAINING DARK YELLOW URINE TO GRAVITY. IN BED RESTING WITH CALL ALARM AT SIDE
--- NOTE | 2021-07-03 18:43 | NUR ---
PATIENT IS ALERT AND ORIENTED TO PERSON AND PLACE. ACUTE CONFUSION. SUPRAPUBIC ACOSTA CATHETER IS IN PLACE. ON 4L. DAILY BANANA BAG. DAUGHTER SUMMER VISITED PATIENT FROM [phone]. BSSR TO BE GIVEN TO DAY TIME NURSE.
--- NOTE | 2021-07-04 05:32 | NUR ---
DIRECTOR OF ACCREDITATION SUMMARY PT HAS BEEN AXO X2 THIS SHIFT W HALLUCINATIONS ABOUT PEOPLE BEING IN THE ROOM. BP WNL AND STABLE THIS SHIFT. TELE SHOWING SR/ST 90-100'S. PT AFEBRILE THIS SHIFT W PEAK TEMP OF 99.3. PT MAINTAINING O2 SATS >90% ON 4L HOWEVER HE REQUIRED 6L WHILE ASLEEP TO MAINTAIN O2 SAT >90%. PT'S SUPRAPUBIC CATH DRAINING DARK ORANGE URINE THIS SHIFT. WILL REPORT TO ONCOMING RN.
[2021-07-04 05:38] LABS: BASOPHILS ABSOLUTE AUTO 0.09 K/mm3 (0.00-0.23); BASOPHILS PERCENT AUTO 1 % (0-2); EOSINOPHILS ABSOLUTE AUTO 0.35 K/mm3 (0.00-0.68); EOSINOPHILS PERCENT AUTO 5 % (0-6); Hematocrit 32.4 % (37.0-53.0); IMMATURE GRAN ABSOLUTE AUTO 0.14 K/mm3 (0.00-0.10); IMMATURE GRAN PERCENT AUTO 2 % (0-1); LYMPHOCYTES ABSOLUTE AUTO 2.38 K/mm3 (0.84-5.20); LYMPHOCYTES PERCENT AUTO 35 % (21-46); MONOCYTES ABSOLUTE AUTO 0.78 K/mm3 (0.16-1.47); MONOCYTES PERCENT AUTO 11 % (4-13); Mean Corpuscular HGB 30.1 pg (26.0-34.0); Mean Corpuscular HGB Conc 30.9 g/dL (31.5-36.5); Mean Corpuscular Volume 98 fL (80-100); Mean Platelet Volume 8.6 fL (9.1-12.4); NEUTROPHILS ABSOLUTE AUTO 3.14 K/mm3 (1.96-9.15); NEUTROPHILS PERCENT AUTO 46 % (41-73); Platelet Count 390 K/mm3 (150-400); RDW Coefficient Variation 13.7 % (11.7-14.2); Red Blood Cell Count 3.32 M/mm3 (4.30-5.90); White Blood Cell Count 6.88 K/mm3 (4.00-11.30)
[2021-07-04 06:18] LABS: Alanine Aminotransfer (ALT/SGP 29 U/L (12-78); Albumin, Blood 2.5 g/dL (3.4-5.0); Albumin/Globulin Ratio 0.6 (0.8-1.8); Alk Phos 59 U/L (50-136); Anion Gap 3 mmol/L (6-16); Aspartate Aminotrans (AST/SGOT 26 U/L (12-37); Bilirubin, Total 0.4 mg/dL (0.1-1.0); Blood Urea Nitrogen 7 mg/dL (8-24); Bun/Creatinine Ratio 10.1 (12.0-20.0); CO2, Blood 34 mmol/L (21-32); Calcium, Blood 8.8 mg/dL (8.5-10.1); Chloride, Blood 102 mmol/L (98-108); Globulin, Blood 4.5 g/dL (2.2-4.0); Glomerular Filtration Rate >60 (60-); Glucose, Blood 117 mg/dL (70-99); Potassium, Blood 3.9 mmol/L (3.5-5.5); Sodium, Blood 139 mmol/L (136-145)
--- NOTE | 2021-07-04 16:26 | NUR ---
Per chart review, patient's condition has continued to improve. Contacted his daughter Layla to begin discussing discharge planning. I re-assured her that we begin the planning process in advance and that he is not discharging until a solid plan is in place for him. She voiced concerns about his decline in mentation. Would like to discuss further with Dr. Leija when available. I advised her that I would ask him to contact her. Family is declining [facility] and [facility] based on negative reviews. She would like to consider other options out of area. I will provide her with a list of other faciltiies offering inpatient rehab. I advised her that he would have to be reviewed by the facilities prior to acceptance and we could not guarantee a certain facility. Layla stated that she would even be willing to provide care for him and have HH provide PT at home if his mentation were to improve.
--- NOTE | 2021-07-04 18:40 | NUR ---
PATIENT IS ALERT AND ORIENTED X2. ABLE TO REORIENT. 4L OF O2. ABLE TO GET UP TO BEDSIDE COMMODE WITH A STANDBY ASSISTANCE. BANANA BAG DAILY. DAUGHTER VISITED FROM [phone]. NO COMPLAINTS OF PAIN OR DISTRESS OVERNIGHT. SUPRAPUBIC ACOSTA CATH IS IN PLACE HANGING BELOW THE BLADDER. BSSR TO BE GIVEN TO HOME HEALTH MANAGER NURSE.
[2021-07-05 04:08] LABS: BASOPHILS ABSOLUTE AUTO 0.08 K/mm3 (0.00-0.23); BASOPHILS PERCENT AUTO 1 % (0-2); EOSINOPHILS ABSOLUTE AUTO 0.45 K/mm3 (0.00-0.68); EOSINOPHILS PERCENT AUTO 7 % (0-6); Hematocrit 32.1 % (37.0-53.0); IMMATURE GRAN ABSOLUTE AUTO 0.12 K/mm3 (0.00-0.10); IMMATURE GRAN PERCENT AUTO 2 % (0-1); LYMPHOCYTES ABSOLUTE AUTO 2.51 K/mm3 (0.84-5.20); LYMPHOCYTES PERCENT AUTO 37 % (21-46); MONOCYTES ABSOLUTE AUTO 0.83 K/mm3 (0.16-1.47); MONOCYTES PERCENT AUTO 12 % (4-13); Mean Corpuscular HGB 29.9 pg (26.0-34.0); Mean Corpuscular HGB Conc 31.2 g/dL (31.5-36.5); Mean Corpuscular Volume 96 fL (80-100); Mean Platelet Volume 8.8 fL (9.1-12.4); NEUTROPHILS ABSOLUTE AUTO 2.85 K/mm3 (1.96-9.15); NEUTROPHILS PERCENT AUTO 42 % (41-73); Platelet Count 378 K/mm3 (150-400); RDW Coefficient Variation 13.6 % (11.7-14.2); RDW Standard Deviation 48.3 fL (35.1-46.3); Red Blood Cell Count 3.34 M/mm3 (4.30-5.90); White Blood Cell Count 6.84 K/mm3 (4.00-11.30)
[2021-07-05 04:33] LABS: Anion Gap 2 mmol/L (6-16); Blood Urea Nitrogen 9 mg/dL (8-24); Bun/Creatinine Ratio 13.6 (12.0-20.0); CO2, Blood 36 mmol/L (21-32); Calcium, Blood 8.7 mg/dL (8.5-10.1); Chloride, Blood 101 mmol/L (98-108); Creatinine, Blood 0.66 mg/dL (0.60-1.20); Glomerular Filtration Rate >60 (60-); Glucose, Blood 105 mg/dL (70-99); Potassium, Blood 3.8 mmol/L (3.5-5.5); Sodium, Blood 139 mmol/L (136-145)
--- NOTE | 2021-07-05 05:29 | NUR ---
PT BEGAN SHIFT APPEARING MORE LUCID AND ORIENTED COMPARED TO PREVIOUS SHIFT EVEN REQUESTING HIS HS MEDICATIONS EARLY SO THAT HE COULD GET SOME SLEEP. AFTER THE PT SLEPT FOR 1.5 HRS HE AWOKE VERY AGITATED AND CONFUSED BECOMING AGGRESSIVE W THE STAFF AND REPEATEDLY TRYING TO EXIT THE BED. ORDER FOR PRN ZYPREXA OBTAINED AND GIVEN W NO EFFECT. PT WAS THEN PLACED IN A LEATHA VEST HE CONTINUED TO TRY AND EXIT THE BED DESPITE NEEDING ALOT OF ASSITANCE TO STAND. PT GIVEN ZYPREXA X2 THIS SHIFT AND PRN SEROQUEL X2, PT APPEARING CALMER THIS SHIFT HE IS LYING IN BED WATCHING TV. PT ONLY SLEPT FOR 1.5 HRS THIS SHIFT. BP MODERATELY ELEVATED THIS SHIFT. TELE SHOWING SR IN THE 80'S. PT AFEBRILE THIS SHIFT. CATHETER DRAINING VERY DARK MARIELLA URINE THIIS SHIFT. WILL REPORT TO ONCOMING RN.
--- NOTE | 2021-07-05 11:00 | NUR ---
UPDATE: PT HAS BEEN MORE ALERT OVER THE PAST HOUR. PT HAS BEEN COOPERATIVE WITH CARE. WHEN ASKED WHERE HE IS, PT STATES "[facility]", PT STATES HE IS IN [place] AND THE DATE, BUT PT CONTINUES TO TALK ABOUT SITUATIONS THAT ARE NOT REALLY HAPPENING AT THIS TIME. PT INFORMED THAT HE IS IN THE HOSPITAL. NO SIGNS OF AGITATION AT THIS TIME, WILL CONTINUE TO MONITOR. PT ASSISTED WITH CALLING HIS DAUGHTER. TAKES MEDICATIONS W/OUT DIFFICULTY. WILL CONTINUE TO MONITOR AND TREAT ACCORDINGLY.
--- NOTE | 2021-07-05 17:13 | NUR ---
Visited with patient with daughter Summer at bedside. Family is reviewing options for inpatient rehab facilities. Likely to select [facility], but would like to review lists provided for them and plan to F/U. Discussed suprapubic catheter and need for change. Pt. is approaching 4 weeks. I advised Summer that I would discuss further with Dr. Leija. At this time plan is to move forward with SNF once family selects facility. The long term acute care registered nurse goal will be for patient to return home with family and potentially caregiver support. [facility] staff will also work with patient's daughter to move forward with applying for Medicaid long-term care assistance. Pt. could potentially need caregiver support or long-term placement. Will request for staff to contact family tomorrow.
--- NOTE | 2021-07-05 18:10 | NUR ---
SHIFT SUMMARY: AT THE START OF SHIFT PT WAS SLEEPING, NOT AROUSING EASILY. PER REPORT, PT HAD BEEN AWAKE MOST OF THE NIGHT AND DIDN'T FALL ASLEEP UNTIL APPROX 0600. AROUND 1000, PT WOKE UP AND CONTINUED ALERT AND CONFUSED T/OUT THE DAY. PT INTERACTING W/STAFF, BUT SOMETIMES RAMBLES ABOUT THINGS THAT AREN'T RELATED TO HIM BEING IN HOSPITAL. PT HAS BEEN COOPERATIVE T/OUT DAY, NOT NEEDING PRN MEDS OR LEATHA VEST, ABLE TO MAKE NEEDS KNOWN. PT CONTINUES ON O2 AT 4L/MIN, SR ON MONITOR, SP CATHETER DRAINING TO GRAVITY. PT'S DAUGHTER TO BEDSIDE FOR VISIT, HAD A MEETING WITH CARE MANAGEMENT RE: DC PLANS. AT THIS TIME, PT RESTING QUIETLY IN BED. WILL CONTINUE TO MONITOR AND TREAT ACCORDINGLY UNTIL CHANGE OF SHIFT.
--- NOTE | 2021-07-05 23:27 | NUR ---
PT ATTEMPTED TO CLIMB OUT OF BED MULTIPLE TIMES. MOST RECENT TIME LEGS WERE ON SIDE OF BED, PT SITTING UP, STATING HE NEEDS TO GO HOME. PT STATED THIS WAS NOT HIS ROOM. PT STATES PEOPLE ARE NOT TELLING ME THE TRUTH. PT AGREED TO GET BACK IN BED BUT STATED HE KNOWS THIS ISN'T HIS ROOM.
[2021-07-06 03:40] LABS: BASOPHILS ABSOLUTE AUTO 0.07 K/mm3 (0.00-0.23); BASOPHILS PERCENT AUTO 1 % (0-2); EOSINOPHILS ABSOLUTE AUTO 0.52 K/mm3 (0.00-0.68); EOSINOPHILS PERCENT AUTO 7 % (0-6); Hematocrit 32.7 % (37.0-53.0); Hemoglobin 10.3 g/dL (13.5-17.5); IMMATURE GRAN ABSOLUTE AUTO 0.08 K/mm3 (0.00-0.10); IMMATURE GRAN PERCENT AUTO 1 % (0-1); LYMPHOCYTES ABSOLUTE AUTO 3.04 K/mm3 (0.84-5.20); LYMPHOCYTES PERCENT AUTO 42 % (21-46); MONOCYTES ABSOLUTE AUTO 0.88 K/mm3 (0.16-1.47); MONOCYTES PERCENT AUTO 12 % (4-13); Mean Corpuscular HGB 29.9 pg (26.0-34.0); Mean Corpuscular HGB Conc 31.5 g/dL (31.5-36.5); Mean Corpuscular Volume 95 fL (80-100); Mean Platelet Volume 8.7 fL (9.1-12.4); NEUTROPHILS ABSOLUTE AUTO 2.73 K/mm3 (1.96-9.15); NEUTROPHILS PERCENT AUTO 37 % (41-73); Platelet Count 368 K/mm3 (150-400); RDW Coefficient Variation 13.4 % (11.7-14.2); RDW Standard Deviation 46.5 fL (35.1-46.3); Red Blood Cell Count 3.44 M/mm3 (4.30-5.90); White Blood Cell Count 7.32 K/mm3 (4.00-11.30)
[2021-07-06 03:56] LABS: Anion Gap 2 mmol/L (6-16); Blood Urea Nitrogen 7 mg/dL (8-24); Bun/Creatinine Ratio 10.9 (12.0-20.0); CO2, Blood 37 mmol/L (21-32); Calcium, Blood 8.7 mg/dL (8.5-10.1); Chloride, Blood 102 mmol/L (98-108); Creatinine, Blood 0.64 mg/dL (0.60-1.20); Glomerular Filtration Rate >60 (60-); Glucose, Blood 96 mg/dL (70-99); Potassium, Blood 3.4 mmol/L (3.5-5.5); Sodium, Blood 141 mmol/L (136-145)
--- NOTE | 2021-07-06 05:05 | NUR ---
SHIFT SUMMARY PT ALERT, ORIENTED TO SELF. PT CONFUSED. AGITATED. PT STATES, "GET THE TRUCK, I NEED TO PARK IT AT MY HOUSE TWO BLOCKS FROM HERE." THEN PT PROCEEDS TO GRAB IV POLE AND PULL IT INTO HIS BED. CHARGE NURSE IN ROOM TO TAKE IV POLE OUT OF BED. PT YELLS AT CHARGE NURSE, "GET YOUR SHIT AND GET THE F*CK OUT OF HERE". PT ATTEMPTED TO GET OUT OF BED MULTIPLE TIMES. IRON ERECTOR IN ROOM TO KEEP PT IN BED, PT ATTEMPS TO KICK AND CUSS AT IRON ERECTOR. PT MEDICATED W/ PRN SEROQUEL AND PRN ZYPREXA. SP02>92% ON 2L NC. VSS. TELEMETRY READS NSR W/ PVCS, HR 80'S. PT HAD LOOSE BM X2 THIS SHIFT. SUPRAPUBIC CATHETER DRAINING DARK URINE TO GRAVITY. PT DID NOT SLEEP AT ALL THIS SHIFT. CALL LIGHT IN REACH.
--- NOTE | 2021-07-06 08:30 | NUR ---
INITIAL ASSESSMENT: Patient is awake in the room, he is oriented to self only. He tells me it is late february, early march of 2001. He keeps looking out the window saying that he sees his family members outside. Patient c/o 5/10 right upper quadrant pain. He states "I feel like I am going throw up." He refuses nausea meds. He states he has been having diarrhea. HRR, ST at 109 with a BBB per sales service technician. LS dim in the bases, pt pulled oxygen out of his nose, once its back in pt's oxygen saturations are 95% on 4l via NC. bt+, some tenderness noted to RUQ, pt went down for abd CT. VSS. Temp 100.2, give tylenol per MD. Patient is superpubic cath with split drain and opsite dressing CDI ,draining clear yellow urine, tubing has some orange sediment in catheter drainiage tubing, will change out today. Patient has irma vest in place but not secured, he has not been impulsive so far this shift. Patient denies other needs at this time. Call light in reach, bed alarm on for safety.
[2021-07-06 08:38] LABS: Albumin, Blood 2.5 g/dL (3.4-5.0); Albumin/Globulin Ratio 0.6 (0.8-1.8); Bilirubin, Direct 0.1 mg/dL (0.0-0.3); Bilirubin, Indirect 0.3 mg/dL (0.1-0.7); Bilirubin, Total 0.4 mg/dL (0.1-1.0); Globulin, Blood 4.5 g/dL (2.2-4.0)
--- NOTE | 2021-07-06 10:15 | NUR ---
Report given to Pedro ORTIZ
--- NOTE | 2021-07-06 10:36 | NUR ---
[place] of care Pt is awake and alert to baseline. He remains confused. He has been out of restraints all morning per report. He is up in the chair and entertaining himself with the personal items on his bedside table. His PICC line is still only intermittently drawing and cath flow will be ordered. Pt remains impulsive and has a chair alarm on.
[2021-07-06 11:49] LABS: Source, Urine Catheter
[2021-07-06 11:55] LABS: Appearance, Urine Hazy (Clear); Bilirubin, Urine Neg (Neg); Blood, Urine 5+ (Neg); Color, Urine Red (P-Yellow); Glucose Qualitative, Urine Neg (Neg); Ketones, Urine 2+ (Neg); Leukocyte Esterase, Urine 1+ (Neg); Nitrite, Urine Pos (Neg); Protein, Urine 3+ (Neg); Urobilinogen, Urine NORM (Normal)
[2021-07-06 12:10] LABS: Red Blood Cells, Urine 25-50 /hpf (0-2); White Blood Cells, Urine 0-2 /hpf (0-5)
[2021-07-06 12:11] LABS: Squamous Epithelial Cells Rare /hpf (Few)
[2021-07-06 12:12] LABS: Bacteria Few /hpf
--- NOTE | 2021-07-06 14:43 | NUR ---
INCONTINENT EPISODE: NURSES RESPONDED TO BED ALARM AND FOUND PATIENT SITTING ON THE SIDE OF THE BED TRYING TO ACCESS COMMODE. PATIENT BECAME AGITATED AND INSISTED DR CLEARED HIM TO MOVE INDEPENDENTLY. PATIENT WAS ASSISTED TO BEDSIDE COMMODE AND LINENS WERE CHANGED. PATIENT WAS SETTLED IN BED WITH A SHEET HE DID NOT WANT A BLANKET.
--- NOTE | 2021-07-06 17:00 | NUR ---
Shift Summary Pt has been awake and oriented to baseline. He remains very confused and impulsive. His daugter is at the bedside now and has been for the afternoon and he has been much calmer and able to nap with her at his side. His suprapubic catheter is patent abd the UA was sent as ordered. His temp remains wnl. He has been out of restraints since this morning. Therapy attempted to work with him but he was not able to follow directions. He was inc of bowel x 1 today and cannot verbalize when he needs to toilet but he does become more irritable. He needs queing for adls and transfers. He has his call light in reach.
--- NOTE | 2021-07-07 06:06 | NUR ---
Patient A/O to self only, often found talking to himself or "others in the room" that are not there. Follows commands. Generalized weakness. Maintaining over 92% on 4L NC, upper lungs clear, lower dim. NSR in 80's with a BBB. Suprapubic catheter in place draining inna urine. Patient increasingly more agitated in the night, trying to get up and "go home" saying that he will just "go home and take a shower and come back in the morning". Unable to redirect patient, and patient was pulling off lines and attempting to break equipment. Orders for irma and bilateral SWR obtained, PRN also given. Patient was able to sleep for 4hrs last night. This morning is having high SBP, order for hydralazine obtained.
[2021-07-07 06:47] LABS: BASOPHILS ABSOLUTE AUTO 0.07 K/mm3 (0.00-0.23); BASOPHILS PERCENT AUTO 1 % (0-2); EOSINOPHILS ABSOLUTE AUTO 0.45 K/mm3 (0.00-0.68); EOSINOPHILS PERCENT AUTO 6 % (0-6); Hematocrit 32.4 % (37.0-53.0); Hemoglobin 10.2 g/dL (13.5-17.5); IMMATURE GRAN ABSOLUTE AUTO 0.07 K/mm3 (0.00-0.10); IMMATURE GRAN PERCENT AUTO 1 % (0-1); LYMPHOCYTES ABSOLUTE AUTO 2.69 K/mm3 (0.84-5.20); LYMPHOCYTES PERCENT AUTO 38 % (21-46); MONOCYTES ABSOLUTE AUTO 0.74 K/mm3 (0.16-1.47); MONOCYTES PERCENT AUTO 10 % (4-13); Mean Corpuscular HGB 30.4 pg (26.0-34.0); Mean Corpuscular HGB Conc 31.5 g/dL (31.5-36.5); Mean Corpuscular Volume 96 fL (80-100); Mean Platelet Volume 9.2 fL (9.1-12.4); NEUTROPHILS ABSOLUTE AUTO 3.16 K/mm3 (1.96-9.15); NEUTROPHILS PERCENT AUTO 44 % (41-73); Platelet Count 364 K/mm3 (150-400); RDW Coefficient Variation 13.6 % (11.7-14.2); RDW Standard Deviation 47.8 fL (35.1-46.3); Red Blood Cell Count 3.36 M/mm3 (4.30-5.90); White Blood Cell Count 7.18 K/mm3 (4.00-11.30)
[2021-07-07 07:06] LABS: Anion Gap 5 mmol/L (6-16); Blood Urea Nitrogen 5 mg/dL (8-24); Bun/Creatinine Ratio 8.3 (12.0-20.0); CO2, Blood 35 mmol/L (21-32); Calcium, Blood 8.5 mg/dL (8.5-10.1); Chloride, Blood 102 mmol/L (98-108); Glomerular Filtration Rate >60 (60-); Glucose, Blood 94 mg/dL (70-99); Potassium, Blood 3.2 mmol/L (3.5-5.5); Sodium, Blood 142 mmol/L (136-145)
--- NOTE | 2021-07-07 12:34 | NUR ---
PT AGGITATED PHYSICIAN NOTIFIED THAT PT HAD INCREASE IN AGGITATION AFTER USING COMMODE. PT REFUSING TO SIT BACK IN BED. THREATENING TO LEAVE. PT VERY CONFUSED ON LOCATION AND SURROUNDINGS. THREATENING TO BECOME PHYSICALLY AGRESSIVE. PHYSICIAN NOTIFIED. ORDERS FOR 5 MG OF ZYPREXA ONE TIME TO BE GIVEN. GIVEN BY INSOLE ROUNDER UNDER THIS RN SUPERVISION. PT NOW BACK IN BED AT THIS TIME WITH BED ALARM IN PLACE.
--- NOTE | 2021-07-07 12:34 | NUR ---
UPDATE AT 1200, THIS RN ENTERED PT ROOM TO HELP PT TO THE BEDSIDE COMMODE. PT WAS ABLE TO STAND AND TURN TO COMMODE WITH MODERATE ASSISTANCE. PT ASKED THIS RN TO LEAVE AND THIS RN INFORMED PT THAT SOMEONE NEEDED TO BE IN THE ROOM OR AT LEAST STAND BEHIND THE PRIVACY CURTAIN SINCE THE PT WAS A FALL RISK. PT BECAME AGITATED WITH THIS RN AND STATED "I'M DONE WITH THIS." THIS RN ASKED IF PT MEANT THAT HE WAS DONE WITH THE COMMODE, PT REPSPONDED "NO I'M DONE WITH ALL OF THIS. I'M NOT SAYING ANYMORE." LOBITO RN ENTERED PT ROOM AND ASKED IF SHE COULD HELP WITH ANYTHING. THIS RN INFORMED LOBITO THAT THE PT WAS ON THE COMMODE HAVING A BOWEL MOVEMENT AND THAT NO HELP WAS NEEDED. PT YELLED OUT "OH BULL CRAP." AFTER ASKING PT WHAT PT WAS REFFERING TO, PT EXPLAINED THAT HE OVERHEARD LOBITO ORTIZ AND THIS RN DISCUSSING WAYS TO "REPLACE THE HIM." THIS RN EXPLAINED TO THE PT THAT THE DISCUSSION ABOUT THE PT HAVING A BOWEL MOVEMENT. PT RESPONDED ,"OH YEAH RIGHT." PT STATED THAT HE HAS "BEEN WAITING FOR HOURS IN ROOM AND NO ONE HAS CAME TO SEE HIM." AT THIS POINT THIS RN AND LOBITO BOTH ASKED PT IF HE COULD SIT BACK IN THE BED TO GET COMFORTABLE, PT RESPONDED ,"THAT IS NOT GOING TO HAPPEN." THIS RN AND LOBITO RN TRIED TO DISCTRACT PT BY STATING WE NEEDED TO CHANGE A DRESSING ON PT AND THAT WE COULD DO THIS TASK EASIER IF PT WAS SITTING BACK IN THE BED. PT RESPONDED ,"NOPE, THAT IS NOT GOING TO HAPPEN." PT BEGAN YELLING OUT "BOSS I NEED YOU IN HERE. THEY WON'T LET ME LEAVE." ISI RN ENTERED PT ROOM AT THIS TIME AND INFORED PT THAT HE WAS AT THE HOSPITAL AND NEEDED TO SIT BACK IN HIS BED. PT REFUSED. PT REQUESTED THE BOSS AGAIN. LOBITO RN ASKED IF PT WANTED HER TO GET THE BOSS, PT RESPONDED "YEAH LETS GET HIM IN HERE." SALIMA FROM PHYSICAL THERAPY ENTERED THE ROOM WITH LOBITO ORTIZ AND PT ASKED EVERYONE BUT SALIMA TO LEAVE THE ROOM. STAFF STEPPED OUTSIDE OF PT ROOM WHILE SALIMA REMAINED WITH PT. SALIMA CONVERSED WITH PT FOR A FEW MINUTES AND THEN EXITED PT ROOM ASKING HIM NOT TO GO ANYWHERE AND ACTIVATED THE BED ALARM. PT ASKED FOR A SODA, THIS RN RETRIEVED A SODA FOR PT. PT THEN ASKED THIS RN, TO GET THE BOSS MAN AGAIN. LOBITO ORTIZ AND RYLAN STUDENT RN ENTERED THE ROOM AND MOMENTS LATERM ROGE ORTIZ ENTERED, ZYPREXA WAS GIVEN AT THIS TIME. . AFTER MANY REQUESTS FOR PT TO SIT BACK INTO HIS BED, LOBITO ORTIZ INFORMED THE GROUP THAT WE ARE GOING TO HAVE TO JUST GET PT BACK INTO BED. PT STATED "YOU BETTER NOT." WITH ROGE ORTIZ, LOBITO ORTIZ, MINO RN AND RYLAN STUDENT RN, WE PLACED PT INTO BED WITH NO RESISTANCE FROM PT. PT STATED "SEE GUYS, I TOLD YOU. THEY ARE GOING TO ARREST YOU IF YOU COME IN HERE." AFTER PT WAS PLACED BACK INTO BED, LEATHA VEST WAS APPLIED, NO RESISTANCE FROM PT.
--- NOTE | 2021-07-07 13:12 | NUR ---
UPDATE PT 1200 VITALS SHOWED SBP OF 184. DR HERNANDEZ NOTIFIED, HYDRALAZINE 1O MG X1 ORDERED PER DR REQUEST.
--- NOTE | 2021-07-07 14:13 | NUR ---
PHYSICIAN AT BEDSIDE ORDERS TO GIVE ZYPREZA 10 MG Q 2 HRS NEEDED FOR AGGITATION. MAXIMUM DOSE OF 30 MG IN [address] MELENDEZ TO SEE PT TOMORROW AM 07/08.
--- NOTE | 2021-07-07 17:46 | NUR ---
SHIFT SUMMARY PT A/O X1, CONFUSED, DELUSIONS, AND HALLUCINATIONS. PT HAD HYPERTENSIVE EPISODE WITH SBP AT 182, DR HERNANDEZ NOTIFIED, TREATED PER EMAR. OTHER VSS T/O SHIFT WITH O2 SATS >93 T/O SHIFT. PT BECAME CONFUSED AROUND 1200, SEE NOTES AT 1234. IN IN LEATHA VEST OF 1200 PERIOD OF CONFUSION. ACOSTA IN PLACE DRAINING TO GRAVITY. PT WAS SCHEDULED FOR MRI, POSTPONED DUE TO PT CONFUSION. PT DAUGHTER CAME TO VISIT, PT BECAME COOPERATIVE OF CARE WHEN DAUGHTER PRESENT. PT WAS UP TO BEDSIDE COMMODE TWICE WITH MODERATE ASSISTANCE BEFORE CONFUSION EPISODE. PICC LINE DRESSING CHANGED WHILE DAUGHTER WAS PRESENT.
--- NOTE | 2021-07-07 19:06 | NUR ---
WRIST RESTRAINTS ORDERS FOR PT TO HAVE BILATERAL SOFT WRIST RESTRAINTS PER PHYSICIAN. PT CONT TO REMOVE OXYGEN AND PT DESATS DOWN TO 80'S. WRIST RESTRAINTS ORDERED AND GIVEN FOR PT SAFETY.
--- NOTE | 2021-07-07 22:19 | NUR ---
Assumed care of pt at 1900. Patient a/o to self only, very confused with more persecutory and paranoid delusions along with his persistent auditory/visual hallucinations. Patient was in irma at beginning of shift, but became more agitated and was pulling at his suprapubic cath line, along with other lines. SWR were implemented per order. Patient did take his PO nighttime meds after extensive talk of why they are important. Perrla, equal strength in all extremities. BP was high with SBP 160-170's, medicated with 2100 meds that included metoprolol.
--- NOTE | 2021-07-08 02:58 | NUR ---
A/O TO SELF ONLY WITH AUDITORY AND VISUAL HALLUCINATIONS, PERSECUTORY AND PARANOID DELUSIONS. PATIENT WAS ABLE TO SLEEP MOST OF THE NIGHT. MAINTAINS ABOVE 92% ON 4L, CLEAR UPPER AND DIM LOWER LS. SINUS RHYTHM WITH BBB AVG 80'S. +2 RADIAL PULSES BILATERAL, WITH FAINT PEDAL PULSES. SUPRAPUBIC CATH IN PLACE (C/D/I) DRAINING MARIELLA URINE. VSS. WILL REPORT TO DAYSHIFT RN.
[2021-07-08 05:53] LABS: BASOPHILS ABSOLUTE AUTO 0.05 K/mm3 (0.00-0.23); BASOPHILS PERCENT AUTO 1 % (0-2); EOSINOPHILS PERCENT AUTO 6 % (0-6); Hematocrit 33.8 % (37.0-53.0); Hemoglobin 10.3 g/dL (13.5-17.5); IMMATURE GRAN ABSOLUTE AUTO 0.06 K/mm3 (0.00-0.10); IMMATURE GRAN PERCENT AUTO 1 % (0-1); LYMPHOCYTES ABSOLUTE AUTO 2.52 K/mm3 (0.84-5.20); LYMPHOCYTES PERCENT AUTO 30 % (21-46); MONOCYTES ABSOLUTE AUTO 0.75 K/mm3 (0.16-1.47); MONOCYTES PERCENT AUTO 9 % (4-13); Mean Corpuscular HGB 29.7 pg (26.0-34.0); Mean Corpuscular HGB Conc 30.5 g/dL (31.5-36.5); Mean Corpuscular Volume 97 fL (80-100); Mean Platelet Volume 8.9 fL (9.1-12.4); NEUTROPHILS ABSOLUTE AUTO 4.42 K/mm3 (1.96-9.15); NEUTROPHILS PERCENT AUTO 53 % (41-73); Platelet Count 371 K/mm3 (150-400); RDW Standard Deviation 49.4 fL (35.1-46.3); Red Blood Cell Count 3.47 M/mm3 (4.30-5.90)
[2021-07-08 06:34] LABS: Anion Gap 4 mmol/L (6-16); Blood Urea Nitrogen 6 mg/dL (8-24); Bun/Creatinine Ratio 9.9 (12.0-20.0); CO2, Blood 35 mmol/L (21-32); Calcium, Blood 8.7 mg/dL (8.5-10.1); Chloride, Blood 103 mmol/L (98-108); Creatinine, Blood 0.61 mg/dL (0.60-1.20); Glomerular Filtration Rate >60 (60-); Glucose, Blood 101 mg/dL (70-99); Potassium, Blood 3.3 mmol/L (3.5-5.5); Sodium, Blood 142 mmol/L (136-145)
--- NOTE | 2021-07-08 18:17 | NUR ---
Patient is alert and oriented to person and place. Hallucinating about grandchildren and hearing voives of other people. Impulsive at times. 4L nasal cannula, no complaints of pain or distress. MRI negative. Daughter at beside from [phone]. BSSR to be given to night warehouse selector nurse.
--- NOTE | 2021-07-09 05:34 | NUR ---
SHIFT SUMMARY PATIENT IS RESTING IN BED COMFORTABLY. BED IS IN LOW POSITION. CALL LIGHT IS IN REACH. VITALS WERE STABLE DURING THE NIGHT. THE PATIENT WAS COOPERATIVE AT THE START OF SHIFT BUT THEN GOT MORE AGITATTED. THE PATIENT WAS MEDICATED WITH PRN MEDICATION. HE WAS ABLE TO GET SOME SLEEP BUT THEN WAS TRYING TO GET UP OUT OF BED AND WAS INCREASINGLY MORE AGITATED AND REFUSING TO COOPERATE WITH NURSE. LEATHA WAS PLACED ON PATIENT THIS MORNING AND AN ORDER WAS OBTAINED. THE PATIENT IS RESTING IN BED. THE PATIENT IS ON 4L NASAL CANNULA. NO COMPLAINS OF PAIN. WILL CONTINUE TO MONITOR. REPORT WILL BE GIVE TO DAY SHIFT RN.
--- NOTE | 2021-07-09 18:18 | NUR ---
PATIENT IS ALERT AND ORIENTED TO PERSON AND PLACE, INTERMITTENTLY CONFUSED BUT EASY TO REORIENT, AGITATED AND IMPULSIVE AT TIMES. SUPRAPUBIC ACOSTA CATH IS IN PLACE AND PATENT. NO COMPLAINTS OF PAIN OR DISTRESS. ABLE TO GET UP TP BEDSIDE COMMODE WITH A STAND BY ASSISTANCE. DAUGHTER SUMMER AT BEDSIDE FROM [id number]. BSSR TO BE GIVEN TO PADDING GLUER NURSE.
[2021-07-10 06:19] LABS: BASOPHILS ABSOLUTE AUTO 0.07 K/mm3 (0.00-0.23); BASOPHILS PERCENT AUTO 1 % (0-2); EOSINOPHILS ABSOLUTE AUTO 0.29 K/mm3 (0.00-0.68); EOSINOPHILS PERCENT AUTO 4 % (0-6); Hematocrit 33.7 % (37.0-53.0); Hemoglobin 10.5 g/dL (13.5-17.5); IMMATURE GRAN ABSOLUTE AUTO 0.04 K/mm3 (0.00-0.10); IMMATURE GRAN PERCENT AUTO 1 % (0-1); LYMPHOCYTES ABSOLUTE AUTO 2.21 K/mm3 (0.84-5.20); LYMPHOCYTES PERCENT AUTO 27 % (21-46); MONOCYTES ABSOLUTE AUTO 0.64 K/mm3 (0.16-1.47); MONOCYTES PERCENT AUTO 8 % (4-13); Mean Corpuscular HGB Conc 31.2 g/dL (31.5-36.5); Mean Corpuscular Volume 96 fL (80-100); Mean Platelet Volume 9.3 fL (9.1-12.4); NEUTROPHILS PERCENT AUTO 61 % (41-73); Platelet Count 324 K/mm3 (150-400); White Blood Cell Count 8.25 K/mm3 (4.00-11.30)
--- NOTE | 2021-07-10 06:23 | NUR ---
SHIFT SUMMARY PATIENT IS RESTING COMFORTABLY IN BED. BED IS IN LOW POSITION. CALL LIGHT IS IN REACH. PATIENT IS STILL TALKING TO HIMSELF IN THE ROOM. HE WAS ABLE TO SLEEP THOUGH THE NIGHT. PATIENT WAS NON COMBATIVE LAST NIGHT AND HE REMAINED IN BED THE WHOLE NIGHT. PATIENT MOVES AROUND IN BED WELL. HE IS ON 4L NASAL CANNUL AND SATURATING IN THE MID 90%. NSR ON THE MONITOR. NO COMPLAINTS OF PAIN. NO ACUTE EVENTS DURING THE NIGHT. WILL CONTINUE TO MONITOR.
[2021-07-10 06:28] LABS: Anion Gap 4 mmol/L (6-16); Blood Urea Nitrogen 8 mg/dL (8-24); Bun/Creatinine Ratio 12.5 (12.0-20.0); CO2, Blood 37 mmol/L (21-32); Calcium, Blood 8.4 mg/dL (8.5-10.1); Chloride, Blood 99 mmol/L (98-108); Creatinine, Blood 0.64 mg/dL (0.60-1.20); Glomerular Filtration Rate >60 (60-); Glucose, Blood 96 mg/dL (70-99); Potassium, Blood 3.1 mmol/L (3.5-5.5); Sodium, Blood 140 mmol/L (136-145)
--- NOTE | 2021-07-10 17:33 | NUR ---
SHIFT SUMMARY NO ACUTE EVENTS THIS SHIFT, VSS. PT WAS ALERT AND ORIENTED TO SELF, PLEASANT AND COOPERATIVE T/O SHIFT. PT CONTINUES TO HAVE HALLUCINATIONS AND DELUSIONS, HOWEVER PT DID NOT APPEAR ANXIOUS. PT STATED THAT THERE WERE WOLVES RUNNING AROUND OUTSIDE HIS WINDOW, AND HAS FLIGHT OF IDEAS. THIS SHIFT O2 WAS DECREASED FROM 4 L VIA NASAL CANNULA TO 3 L VIA NASAL CANNULA. SUPRAPUBIC CATHETER REMAINS IN PLACE, DRAINING TO GRAVITY. PT DENIED PAIN/DISCOMFORT THIS SHIFT, ASSISTED WITH REPOSITIONING BY STAFF.
--- NOTE | 2021-07-11 06:14 | NUR ---
SHIFT SUMMARY PATIENT IS RESTING COMFORTABLY IN BED. BED IS IN LOW POSITION. CALL LIGHT IS IN REACH. PATIENT IS STILL TALKING TO HIMSELF IN THE ROOM. HE WAS ABLE TO SLEEP THOUGH THE NIGHT. PATIENT WAS NON COMBATIVE LAST NIGHT AND HE REMAINED IN BED THE WHOLE NIGHT. PATIENT MOVES AROUND IN BED WELL. HE IS ON 3L NASAL CANNUL AND SATURATING IN THE MID 90%. NSR ON THE MONITOR. NO COMPLAINTS OF PAIN. NO ACUTE EVENTS DURING THE NIGHT. WILL CONTINUE TO MONITOR.
--- NOTE | 2021-07-11 09:09 | NUR ---
ASSUMED CARE OF PATIENT AT APPROX 0700. VSS. REPROT GIVEN TO ONCOMING ANGEL MALONEY RN.
--- NOTE | 2021-07-11 10:08 | NUR ---
CARE ASSUMPTION THIS RN ASSUMED CARE AT 0830 FROM SIMONE ORTIZ. WHEN THIS RN WENT TO SEE THE PATIENT THIS MORNING PATIENT ASKED IF I KNOW WHAT DAY IT IS, AND I ASKED HIM IF HE KNEW. PATIENT STATED THAT TODAY IS THE ANNIVERSARY OF HIS WIFES , AND STATED SHE PASSED IN 192, THEN CORRECTED AND SAID 2000. 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 THIS RN REORIENTATED THE PATIENT AND STATED I WAS RUFINO NOT ROSA. THE PATIENT REFUSED CARE FROM ME AND TOLD ME TO LEAVE. THIS RN GOT FIBERGLASS ROLLER AND PATIENT TOLD FIBERGLASS ROLLER TO HAVE ME LEAVE. PATIENT WORKED WITH PHYSICAL THERAPY THIS AM. WILL CONTINUE TO MONITOR AND PROVIDE CARE.
--- NOTE | 2021-07-11 17:54 | NUR ---
SHIFT SUMMARY PATIENT DAUGHTER AT BEDSIDE THIS AFTERNOON AND PROVIDED CALMING TO THE PATIENT AND REDIRECTED THE PATIENT THAT HER SISTER, ROSA IS NOT HERE, AND THAT THIS RN IS NOT HERE. PATIENT STILL HAS A FLIGHT OF IDEAS AND CONFUSION TO WHAT IS HAPPENING. PATIENT STATED THAT THEY TOOK OUT HIS SUPRAPUBIC CATH LAST NIGHT WHILE THE MD AND I WERE IN THERE. WE PROVIDED EDUCATION THAT IT DIDN'T HAPPEN AND IT IS STILL THERE AND WILL BE REMOVED LATER ON. PATIENT REPORTS BACK PAIN AND RECEIVED TYLENOL PER EMAR. PATIENT HAS A ROOM ON MED FLOOR 348. THE PATIENT ROOOM IS PACKED UP AND BELONGINGS GATHERED. PATIENT IS READY TO BE TRANSFERED AWAITING FOR MED RN TO CALL BACK TO GIVE REPORT. WILL CONTINUE TO MONITOR AND PROVIDE CARE UNTIL HAND OFF.
--- NOTE | 2021-07-11 18:31 | NUR ---
pts pressures have been wnl after this am low pressure with fluids infusing. he has slept most of the day but wakes easily. call light in reach.
--- NOTE | 2021-07-11 18:34 | NUR ---
pt arrived to 348 via bed, he seems in good spirits, states he's perfect. no complaints. told him Im going off shift soon. no complaints or needs at this time. call light in reach.
--- NOTE | 2021-07-12 04:12 | NUR ---
SHIFT SUMMARY ADMITTED FOR RESPIRATORY FAILURE. FULL CODE. PLAN IS FOR PLACEMENT. HE IS CONFUSED BUT COOPERATIVE WITH CARE. SUPRAPUBIC CATHETER IS IN PLACE. DELUSIONS & HALLUCINATIONS REPORTED. ADA DIET. NO NEW CONCERNS THIS SHIFT
[2021-07-12 05:19] LABS: BASOPHILS ABSOLUTE AUTO 0.05 K/mm3 (0.00-0.23); BASOPHILS PERCENT AUTO 1 % (0-2); EOSINOPHILS ABSOLUTE AUTO 0.22 K/mm3 (0.00-0.68); EOSINOPHILS PERCENT AUTO 3 % (0-6); Hematocrit 34.4 % (37.0-53.0); Hemoglobin 10.7 g/dL (13.5-17.5); IMMATURE GRAN ABSOLUTE AUTO 0.02 K/mm3 (0.00-0.10); IMMATURE GRAN PERCENT AUTO 0 % (0-1); LYMPHOCYTES ABSOLUTE AUTO 2.63 K/mm3 (0.84-5.20); LYMPHOCYTES PERCENT AUTO 37 % (21-46); MONOCYTES ABSOLUTE AUTO 0.71 K/mm3 (0.16-1.47); MONOCYTES PERCENT AUTO 10 % (4-13); Mean Corpuscular HGB 30.1 pg (26.0-34.0); Mean Corpuscular HGB Conc 31.1 g/dL (31.5-36.5); Mean Corpuscular Volume 97 fL (80-100); Mean Platelet Volume 9.4 fL (9.1-12.4); NEUTROPHILS ABSOLUTE AUTO 3.48 K/mm3 (1.96-9.15); NEUTROPHILS PERCENT AUTO 49 % (41-73); Platelet Count 316 K/mm3 (150-400); RDW Coefficient Variation 13.9 % (11.7-14.2); RDW Standard Deviation 49.5 fL (35.1-46.3); Red Blood Cell Count 3.56 M/mm3 (4.30-5.90); White Blood Cell Count 7.11 K/mm3 (4.00-11.30)
[2021-07-12 05:40] LABS: Anion Gap 4 mmol/L (6-16); Blood Urea Nitrogen 6 mg/dL (8-24); Bun/Creatinine Ratio 9.6 (12.0-20.0); CO2, Blood 33 mmol/L (21-32); Calcium, Blood 8.7 mg/dL (8.5-10.1); Chloride, Blood 103 mmol/L (98-108); Creatinine, Blood 0.62 mg/dL (0.60-1.20); Glomerular Filtration Rate >60 (60-); Glucose, Blood 91 mg/dL (70-99); Potassium, Blood 3.7 mmol/L (3.5-5.5); Sodium, Blood 140 mmol/L (136-145)
--- NOTE | 2021-07-12 16:37 | NUR ---
PATIENT HAS BEEN PLEASANT AND COOPERATIVE WITH STAFF. ORIENTED X3-4 WITH SOME NOTED FORGETFULNESS. VITALS HAVE BEEN STABLE. SUPRAPUBIC CATHETER TO RLQ PATENT AND DRAINING TO GRAVITY. PATIENT HAS BEEN VISITING WITH DAUGHTER AT BEDSIDE. CALL LIGHT WITHIN REACH.
--- NOTE | 2021-07-13 06:25 | NUR ---
WAXER SUMMARY PT A/O X4, SLEPT WELL TONIGHT. MEDICATED ONCE OVERNIGHT FOR BACK PAIN. VITALS STABLE. PLEASANT AND COOPERATIVE. PT HAD BEEN INDEPENDENT IN ROOM. STATES HE'S "FEELING SORE" THIS AM HE EXPLAINED TO THIS RN HE HAD WALKED A LOT YESTERDAY. NO ACUTE CHANGES. CALL LIGHT WITHIN REACH, BED ALARM ON, WILL CONTINUE TO MONITOR.
--- NOTE | 2021-07-13 09:41 | NUR ---
Urology referral sent to [facility] Dr. Chi. Chart notes faxed as well. Anticipating pt. scheduling with Dr. Chi for suprapubic cath removal and F/U.
--- NOTE | 2021-07-13 14:43 | NUR ---
PATIENT HAS HAD A GOOD DAY THIS SHIFT THUS FAR. VITALS STABLE. PICC DRESSING CHANGED PER SUNDAY PROTOCOL. PATIENT IS EXCITED AND LOOKING FORWARD TO GOING HOME TOMORROW WITH HIS DAUGHTER. PATIENT RESTING IN BED AT THIS TIME WITH HIS DAUGHTER AT BEDSIDE. CALL LIGHT WITHIN REACH.
--- NOTE | 2021-07-13 20:15 | NUR ---
ASSUMED CARE. AOX3, ANSWERS ALL QUESTIONS APPROPRIATLY AT THIS TIME. SETH RN DID REPORT THAT HE HAS HULLUCINATIONS, MEMORY LAPSE AND LIKES TO TELL TALL TAILS. DENIES PAIN, EXCEPT THAT HIS GROIN IS VERY RED AND TENDER. HE HAD ALL READY COVERED HIMSELF WITH NYSTATIN POWDER. HAD HIM REMOVE HIS PANTS TO ALLOW FOR AIR. CLOTHS TUCKED BETWEEN. LS CLEAR, ON 4 LITERS. DENIES SOB OR COUGH. CATH TO GRAVITY DARK COLOR URINE. WILL CONTINUE TO MONITOR. CALL LIGHT IN REACH.
--- NOTE | 2021-07-14 05:23 | NUR ---
SHIFT SUMMARY: AOX3, ANSWERED ALL QUESTIONS APPROPRIALY THIS SHIFT. FOLLOWED ALL DIRECTIONS. USED CALL LIGHT APPROPRIATLY. SUPERPUBIC CATH CONTINUES TO BACK FLOW TO WHERE HE WAS INCONTINENT LAST NIGHT. THIS OCCURS DUE TO TUBING KINKING AT DRESSING SITE. ATTEMPTED TO TAPE IN PLACE BUT THIS DID NOT HELP. CATH PATENT WHEN IT HAS CLEAR PATHWAY, DARK YEELLOW URINE. SEVERE REDNSS TO TESTICLES AND GROIN WHERE IT IS PAINFUL. INSTRUCTED ON SKIN CARE. HE USES THE ANTIFUNGAL POWDER WELL. VERY WEAK THIS SHIFT, UNSTEADY ON HIS FEET, WAS A 1 PERSON ASSIST. VS WNL, AFEBRILE. NO PAIN. CALL LIG IN REACH.
[2021-07-14 05:30] LABS: BASOPHILS ABSOLUTE AUTO 0.06 K/mm3 (0.00-0.23); BASOPHILS PERCENT AUTO 1 % (0-2); EOSINOPHILS ABSOLUTE AUTO 0.23 K/mm3 (0.00-0.68); EOSINOPHILS PERCENT AUTO 3 % (0-6); Hemoglobin 11.5 g/dL (13.5-17.5); IMMATURE GRAN ABSOLUTE AUTO 0.02 K/mm3 (0.00-0.10); IMMATURE GRAN PERCENT AUTO 0 % (0-1); LYMPHOCYTES ABSOLUTE AUTO 2.85 K/mm3 (0.84-5.20); LYMPHOCYTES PERCENT AUTO 38 % (21-46); MONOCYTES ABSOLUTE AUTO 0.65 K/mm3 (0.16-1.47); MONOCYTES PERCENT AUTO 9 % (4-13); Mean Corpuscular HGB 29.9 pg (26.0-34.0); Mean Corpuscular HGB Conc 31.1 g/dL (31.5-36.5); Mean Corpuscular Volume 96 fL (80-100); Mean Platelet Volume 9.7 fL (9.1-12.4); NEUTROPHILS ABSOLUTE AUTO 3.73 K/mm3 (1.96-9.15); NEUTROPHILS PERCENT AUTO 49 % (41-73); Platelet Count 338 K/mm3 (150-400); RDW Standard Deviation 49.3 fL (35.1-46.3); Red Blood Cell Count 3.84 M/mm3 (4.30-5.90); White Blood Cell Count 7.54 K/mm3 (4.00-11.30)
[2021-07-14 06:08] LABS: Anion Gap 4 mmol/L (6-16); Blood Urea Nitrogen 9 mg/dL (8-24); Bun/Creatinine Ratio 14.2 (12.0-20.0); CO2, Blood 34 mmol/L (21-32); Chloride, Blood 102 mmol/L (98-108); Creatinine, Blood 0.63 mg/dL (0.60-1.20); Glomerular Filtration Rate >60 (60-); Glucose, Blood 90 mg/dL (70-99); Potassium, Blood 4.2 mmol/L (3.5-5.5); Sodium, Blood 140 mmol/L (136-145)
--- NOTE | 2021-07-14 10:12 | NUR ---
07/13/2021 [facility] to [facility]'s room to be of use for possible discharge today. Pt's daughter requested an elongated toilet seat. Pt's insurance will not cover this, I informed patient's daughter. Also informed pt's daughter [employer] has them for $55.
[2021-07-14] MEDS ORDERED: LISI5 PO (11:29)
--- NOTE | 2021-07-14 17:24 | NUR ---
PICC LINE IS PULLED AND DRESSED BY DANIELLE ORTIZ. DRESSING INTACT AND PAITNET TOLERATD WELL. PATIENT TO BE DISCHARGED TO HOME WITH DAUGHTER PALMER. MEETS WITH PATIENT AND DAUGHTER PRIOR TO PATIENT DISCHARGING TO HOME AND OK TO DC IS PROVIDED BY MD AFTER MEETING. PAIGE TO FOLLOW UP WITH OFFICE NEXT WEEK THEY WILL CALL HIM FOR AN APPOINTMENT. WHEEL CHAIR WAS DELIVERED TO PATIENT IN ROOM PRIOR TO DC. MESFIN FROM [facility] COMES TO MEET WITH PATIENT AND DAUGHTER. DAUGHTER VERBALIZED DC INSTRUCTIONS. CHERRI SHINE RN CARE MANAGER
--- NOTE | 2021-07-15 07:57 | NUR ---
Received referral from [facility] (Millicent Singh) on 07/14/2021 at 1519. Patient is to discharge with orders for home health and elected [facility]. Met with patient and patient's daughter (Layla Briones) to further discuss the above. Patient and daughter is agreeable to the above. Discussed homebound status definition with patient and daughter. Patient and daughter verbalized understanding. Discussed what home health is vs what it is not (in home caregivers/housekeeping). Patient and daughter verbalized understanding. Discussed the next steps in the process of an initial assessment to determine frequency of visits. Again patient and daughter verbalized understanding. Offered a chance for patient and daughter to ask questions regarding the above of which there were none. Gathered all supporting documentation for referral (face sheet, face to face, med list, H&P, and most recent PT assessment) and sent to [facility] for review. No further interventions required. Cyn De La Rosa Referral Liaison
--- NOTE | 2021-07-15 08:07 | NUR ---
Per chart review with Dr. Gray patient appropriate for discharge. Wheelchair ordered for patient and delivered directly to patient's [facility] via [employer]. Patient is returning home with daughter and strong family support, feels his situation is safe, denied barriers to discharge or concerns with safety. Home health ordered and Cyn De La Rosa contacted patient and daughter before discharge.
== END 2021-07-14 17:43 | disposition home health service (06) | DRG 870 ==
LOC: ER 21:20 → PCU 22:58 → ICUW 22:58 → ICUE 22:58 → PCU 06-30 15:25 → MEDS 07-11 19:05
PROVIDERS: Emergency Medicine; Family Medicine; Internal Medicine; Internal Medicine Critical Care Medicine; Student in an Organized Health Care Education/Training Program; ADMIT Hospitalist
PROC: 02HV33Z Insertion of Infusion Device into Superior Vena Cava, Percutaneous Approach (ICD-10-PCS; principal; 2021-06-12)
PROC: 3E043XZ Introduction of Vasopressor into Central Vein, Percutaneous Approach (ICD-10-PCS; 2021-06-12)
PROC: 5A1955Z Respiratory Ventilation, Greater than 96 Consecutive Hours (ICD-10-PCS; 2021-06-12)
PROC: 0BH17EZ Insertion of Endotracheal Airway into Trachea, Via Natural or Artificial Opening (ICD-10-PCS; 2021-06-12)
PROC: 5A09357 Assistance with Respiratory Ventilation, Less than 24 Consecutive Hours, Continuous Positive Airway Pressure (ICD-10-PCS; 2021-06-12)
PROC: 3E0234Z Introduction of Serum, Toxoid and Vaccine into Muscle, Percutaneous Approach (ICD-10-PCS; 2021-06-12)
PROC: 0T9B30Z Drainage of Bladder with Drainage Device, Percutaneous Approach (ICD-10-PCS; 2021-06-14)
PROC: BT101ZZ Fluoroscopy of Bladder using Low Osmolar Contrast (ICD-10-PCS; 2021-06-14)
DX: A41.9 Sepsis, unspecified organism (principal); J18.9 Pneumonia, unspecified organism; R65.21 Severe sepsis with septic shock; J96.21 Acute and chronic respiratory failure with hypoxia; E87.2 Acidosis; J44.0 Chronic obstructive pulmonary disease with (acute) lower respiratory infection; N17.9 Acute kidney failure, unspecified; K92.2 Gastrointestinal hemorrhage, unspecified; R44.0 Auditory hallucinations; Z20.822 Contact with and (suspected) exposure to COVID-19; I27.20 Pulmonary hypertension, unspecified; E83.39 Other disorders of phosphorus metabolism; E83.51 Hypocalcemia; E87.6 Hypokalemia; R73.9 Hyperglycemia, unspecified; T38.0X5A Adverse effect of glucocorticoids and synthetic analogues, initial encounter; R41.0 Disorientation, unspecified; R10.13 Epigastric pain; R33.8 Other retention of urine; E66.01 Morbid (severe) obesity due to excess calories; E78.5 Hyperlipidemia, unspecified; E11.9 Type 2 diabetes mellitus without complications; Z68.36 Body mass index [BMI] 36.0-36.9, adult; Z78.1 Physical restraint status; Z23 Encounter for immunization; I67.9 Cerebrovascular disease, unspecified; G89.4 Chronic pain syndrome; N40.1 Benign prostatic hyperplasia with lower urinary tract symptoms; R44.1 Visual hallucinations; M54.50 Low back pain, unspecified; I11.0 Hypertensive heart disease with heart failure; G47.33 Obstructive sleep apnea (adult) (pediatric); K21.9 Gastro-esophageal reflux disease without esophagitis; I50.9 Heart failure, unspecified; Z88.0 Allergy status to penicillin; Z88.5 Allergy status to narcotic agent; Z79.01 Long term (current) use of anticoagulants; Z79.899 Other long term (current) drug therapy; Z98.890 Other specified postprocedural states; Z90.49 Acquired absence of other specified parts of digestive tract; Z86.711 Personal history of pulmonary embolism
CPT/HCPCS: 31500; 36415; 36556; 36569; 36600; 51102; 51702; 51703; 70450; 70551; 71045; 71260; 73551; 74176; 74177; 76770; 80048; 80053; 80069; 80076; 80202; 81001; 82248; 82272; 82330; 82803; 83605; 83690; 83735; 83880; 84100; 84145; 84484; 85025; 85610; 85730; 87040; 87070; 87086; 87205; 90686; 92526; 92610; 93005; 93010; 93306; 93971; 94002; 94003; 94644; 94660; 94667; 94668; 94760; 96365-59; 96375; 96375-59; 97110; 97112; 97116; 97129; 97162; 97167; 97530; 97535; 99291-25; A9270; C1729; C1751; C1769; C9113; G0008; J0330; J0360; J0456; J0610; J0692; J0696; J1630; J1644; J1650; J1940; J2250; J2704; J2930; J3010; J3370; J3411; J3475; J3480; J7030; J7040; J7042; J7050; J7060; P9046; Q9967; U0004

== ENCOUNTER → 2021-10-06 | Outpatient (CLI) | payer MEDICARE ==
[~2021-10-06] MED LIST changes: +CHOLESTYRAMI239.4 G1 PO; +DIAZ5 PO; +ELIQUIS5 M3 PO; +FLOVENT HFA12 GM INH; +LISI5 PO; +Lopressor 25 mg25 MG PO; +METO25 PO; +OXYB5 PO
[2021-10-06 13:05] LABS: Source, Urine Clean Catch
[2021-10-06 13:49] LABS: Color, Urine Amber (P-Yellow)
[2021-10-06 13:50] LABS: Appearance, Urine Cloudy (Clear); Bilirubin, Urine Neg (Neg); Blood, Urine 1+ (Neg); Glucose Qualitative, Urine Neg (Normal); Ketones, Urine 2+ (Neg); Leukocyte Esterase, Urine 2+ (Neg); Nitrite, Urine Pos (Neg); Protein, Urine Trace (Neg); Specific Gravity, Urine 1.015 (1.003-1.022); Urobilinogen, Urine NORM (Normal)
[2021-10-06 13:51] LABS: Bacteria Many /hpf; Red Blood Cells, Urine Rare /hpf (0-2); Squamous Epithelial Cells Rare /hpf (Few); White Blood Cells, Urine TNTC /hpf (0-5)
== END | disposition home or self-care (01) ==
LOC: LAB SHORT 12:25
PROVIDERS: Family Medicine
DX: R30.9 Painful micturition, unspecified (principal)
CPT/HCPCS: 81001; 87077; 87086; 87186

== ENCOUNTER 2023-10-22 06:11 | Day surgery (SDC) | payer OTHER ==
[~2023-10-22] VITALS: Ht 180.3 cm; Wt 83.2 kg
[~2023-10-22 06:11] MED LIST changes: +BACTRIM 400-801 EACH PO; -FLOVENT HFA12 GM INH; +FLUTICASONE PRO12 GM INH; +Lactated Ringer's 0 ML IV ONE
[2023-10-22] MEDS ORDERED: TRAZ50 PO (06:42)
[2023-10-22] MEDS ORDERED: LOSARTAN POTASS25 M2 PO (06:43)
[2023-10-22] MEDS ORDERED: CHOLESTYRAMI239.4 G5 PO (06:44)
[2023-10-22] MEDS ORDERED: ACET500 (06:45)
[2023-10-22] MEDS ORDERED: CENTRUM SILVER1 EAC2 PO (06:45)
[2023-10-22] MEDS ORDERED: FentaNYL Citrate 50 MCG/ML 2 ML Injection ONE ×3 (06:54→10:17)
[2023-10-22] MEDS ORDERED: propofoL 20 ML IV ONE (06:54)
[2023-10-22] MEDS ORDERED: Lactated Ringer's 1,000 ML IV ONE ×2 (06:56→07:20)
[2023-10-22] MEDS ORDERED: Ondansetron HCl 2 MG / ML 2ML Vial ONE (06:56)
[2023-10-22] MEDS ORDERED: Dexamethasone Sod Phos 10 MG/ML 1ML VIAL ONE (06:56)
[2023-10-22] MEDS ORDERED: Ropivacaine 0.5% HCl/Pf 5 MG/ML 20ML VIAL ONE (07:00)
[2023-10-22] MEDS ORDERED: Clindamycin 900mg in D5W 50ML 0 ML IV ONE (07:20)
[2023-10-22] MEDS ORDERED: Midazolam HCl 1MG / ML 2ML Vial ONE (07:27)
[2023-10-22] MEDS ORDERED: CeFAZolin Sodium 2,000 MG VIAL ONE (07:34)
[2023-10-22] MEDS ORDERED: NS 0 ML IV ONE (07:35)
[2023-10-22] MEDS ORDERED: EPINEPhrine HCl 1 MG/ML 1ML Amp XX ONE ×2 (08:04)
--- NOTE | 2023-10-22 08:19 | NUR ---
10/22/23 0819 Amina Childers ROPIVACAINE 0.5% 20MLS MIXED AND VERIFIED W/ EPI 0.1ML (1MG/ML) TO MAKE ROPIVACAINE 0.5% W/ EPI 1:200,000 FOR INJECTION AT OPSITE BY DR. HAGER
[2023-10-22] MEDS ORDERED: ePHEDrine Sulfate 50 MG/ML 1ML Injection ONE (08:22)
[2023-10-22] MEDS ORDERED: Bupivacaine 0.5% HCl 5 MG/ML 30MLVIAL ONE (08:28)
[2023-10-22] MEDS ORDERED: Ketorolac Tromethamine 30mg Vial ONE (08:54)
[2023-10-22 10:20] VITALS: BP 113/80
[2023-10-22] MEDS ORDERED: OxyCODONE 5 mg/Acetamin 325 mg TABLET ONE (10:31)
--- NOTE | 2023-10-22 10:31 | NUR ---
10/22/23 1031 Jean Burnett FENTANYL 25MCG IV GIVEN AT 1030 FOR LEFT WRIST PAIN AT 8/.
== END 2023-10-22 10:50 | disposition home or self-care (01) ==
LOC: ORSCSDS 06:11
PROVIDERS: Orthopaedic Surgery
PROC: 01N40ZZ Release Ulnar Nerve, Open Approach (ICD-10-PCS; principal; 2023-10-22 07:30)
PROC: 0RQT0ZZ Repair Left Carpometacarpal Joint, Open Approach (ICD-10-PCS; principal; 2023-10-22 07:30)
DX: M18.12 Unilateral primary osteoarthritis of first carpometacarpal joint, left hand (principal); G56.22 Lesion of ulnar nerve, left upper limb; I10 Essential (primary) hypertension; G47.33 Obstructive sleep apnea (adult) (pediatric); K21.9 Gastro-esophageal reflux disease without esophagitis; Z86.711 Personal history of pulmonary embolism; Z79.01 Long term (current) use of anticoagulants; I50.9 Heart failure, unspecified; E78.5 Hyperlipidemia, unspecified; Z79.899 Other long term (current) drug therapy; Z87.891 Personal history of nicotine dependence
CPT/HCPCS: A9270; J0171; J0690; J1100; J1885; J2250; J2405; J2704; J2795; J3010; J7120

== ENCOUNTER → 2024-02-12 | Outpatient (CLI) | payer OTHER ==
[~2024-02-12] MED LIST changes: +ACET500; +CENTRUM SILVER1 EAC2 PO; +CHOLESTYRAMI239.4 G5 PO; +LOSARTAN POTASS25 M2 PO; -Lactated Ringer's 0 ML IV ONE; +TRAZ50 PO
== END | disposition home or self-care (01) ==
LOC: LAB SHORT 08:20 → LAB 08:20
DX: R07.9 Chest pain, unspecified (principal)
CPT/HCPCS: 84484

== ENCOUNTER 2025-04-28 08:16 | Day surgery (SDC) | payer OTHER ==
[~2025-04-28] VITALS: Ht 180.3 cm; Wt 98.8 kg
[2025-04-28] MEDS ORDERED: Tranexamic Acid 100 ML IV ONE (09:01)
[2025-04-28] MEDS ORDERED: CeFAZolin Sodium 2,000 MG VIAL ONE (09:27)
[2025-04-28] MEDS ORDERED: Midazolam HCl 1MG / ML 2ML Vial ONE (09:51)
[2025-04-28] MEDS ORDERED: FentaNYL Citrate 50 MCG/ML 2 ML Injection ONE (09:51)
--- NOTE | 2025-04-28 10:09 | NUR ---
04/28/[address] BUENROSTRO AND DR KENDRICK NOTIFIED OF PT'S ALLERGIES; BOTH DOCTORS WOULD LIKE TO PROCEED WITH THE 2GM ANCEF ORDERED. TIME OUT DONE PRIOR TO NERVE BLOCK WITH DR BUENROSTRO. PT TOLERATED BLOCK WELL.
[2025-04-28] MEDS ORDERED: Ondansetron HCl 2 MG / ML 2ML Vial ONE (10:10)
[2025-04-28] MEDS ORDERED: Dexamethasone Sod Phos 10 MG/ML 1ML VIAL ONE (10:10)
[2025-04-28] MEDS ORDERED: Rocuronium Bromide 10 MG/ML 5ML Injection IV ONE (10:10)
[2025-04-28] MEDS ORDERED: Phenylephrine HCl 100 MCG/ML-NS 10MLSYR (1MG/10ML) ONE ×2 (10:23→10:52)
[2025-04-28] MEDS ORDERED: ePHEDrine Sulfate 50 MG/ML 1ML Injection ONE (11:04)
[2025-04-28] MEDS ORDERED: Sugammadex Sodium 200 MG/2ML SDV (100 MG/ML) ONE (11:55)
[2025-04-28 13:56] VITALS: BP 137/67
== END 2025-04-28 14:06 | disposition home or self-care (01) ==
LOC: ORSCSDS 08:16
PROVIDERS: Orthopaedic Surgery Sports Medicine
PROC: 0LS44ZZ Reposition Left Upper Arm Tendon, Percutaneous Endoscopic Approach (ICD-10-PCS; principal; 2025-04-28 10:15)
PROC: 0RNK4ZZ Release Left Shoulder Joint, Percutaneous Endoscopic Approach (ICD-10-PCS; principal; 2025-04-28 10:15)
DX: M75.102 Unspecified rotator cuff tear or rupture of left shoulder, not specified as traumatic (principal); M19.012 Primary osteoarthritis, left shoulder; I10 Essential (primary) hypertension; G47.33 Obstructive sleep apnea (adult) (pediatric); E66.9 Obesity, unspecified; Z68.30 Body mass index [BMI] 30.0-30.9, adult; J44.9 Chronic obstructive pulmonary disease, unspecified; E78.5 Hyperlipidemia, unspecified; K21.9 Gastro-esophageal reflux disease without esophagitis; Z86.718 Personal history of other venous thrombosis and embolism; Z79.01 Long term (current) use of anticoagulants; Z79.899 Other long term (current) drug therapy
CPT/HCPCS: A9270; C1713; J0166; J0690; J1100; J2250; J2371; J2405; J2704; J3010; J7120